=== PATIENT | male | born 1945 | race Caucasian/White ===

== ENCOUNTER 2017-07-18 13:59 | Outpatient (CLI) | payer MEDICARE ==
--- NOTE | 2017-07-18 18:38 | XRAY Report ---
THREE VIEW CERVICAL SPINE: 07/18/2017 CLINICAL INDICATION: Neck pain, chronic. COMPARISON: MR 04/25/2016, plain film 04/01/2016. AP, lateral, odontoid views of the cervical spine demonstrate degenerative changes, worst at C6-7, si milar to previous. There is no evidence of interval fracture or subluxation. The prevertebral soft tissues are unremarkable. IMPRESSION: STABLE DEGENERATIVE CHANGES. NO EVIDENCE OF INTERVAL FRACTURE. JOB #: [id number] EXT JOB #:[id number]
== END 2017-07-18 14:00 | disposition home or self-care (01) ==
LOC: DI 13:59
PROVIDERS: ATTEND Physician Assistant Medical
DX: M47.892 Other spondylosis, cervical region (principal)
CPT/HCPCS: 72040

== ENCOUNTER 2022-11-17 07:07 | Outpatient (CLI) | payer MEDICARE | END 2022-11-17 07:08 | disposition home or self-care (01) | LOC: LAB.S 07:07 | PROVIDERS: ATTEND Specialist | DX: C61 Malignant neoplasm of prostate (principal) | CPT/HCPCS: 36415; 84153 ==

== ENCOUNTER 2023-05-29 08:19 | Outpatient (CLI) | payer MEDICARE | END 2023-05-29 08:20 | disposition home or self-care (01) | LOC: LAB.S 08:19 | PROVIDERS: ATTEND Specialist | DX: Z08 Encounter for follow-up examination after completed treatment for malignant neoplasm (principal); Z85.46 Personal history of malignant neoplasm of prostate | CPT/HCPCS: 36415; 84153 ==

== ENCOUNTER 2023-11-26 15:48 | Emergency (ER) | payer MEDICARE ==
[2023-11-26 16:07] VITALS: O2SAT 100
[2023-11-26 16:18] LABS: BASOPHILS # (AUTO) 0.1 10^3/uL (0.0-0.1); BASOPHILS % (AUTO) 0.8 %; EOSINOPHILS # (AUTO) 0.2 10^3/uL (0.0-0.7); EOSINOPHILS % (AUTO) 2.3 %; HCT - HEMATOCRIT 43.7 % (42.0-52.0); HGB - HEMOGLOBIN 14.1 g/dL (14.0-18.0); LYMPHOCYTES # (AUTO) 0.9 10^3/uL (1.5-3.5); LYMPHOCYTES % (AUTO) 9.7 %; MEAN CORPUSCULAR HEMOGLOBIN 29.5 pg (27.0-31.0); MEAN CORPUSCULAR HGB CONC 32.3 g/dL (32.0-36.0); MEAN CORPUSCULAR VOLUME 91.4 fL (80.0-94.0); MEAN PLATELET VOLUME 10.5 fL (7.4-11.4); MONOCYTES # (AUTO) 0.8 10^3/uL (0.0-1.0); MONOCYTES % (AUTO) 8.7 %; NEUTROPHILS # (AUTO) 7.1 10^3/uL (1.5-6.6); NEUTROPHILS % (AUTO) 78.2 %; PLT - PLATELET COUNT 172 10^3/uL (130-450); RED BLOOD COUNT 4.78 10^6/uL (4.70-6.10); RED CELL DISTRIBUTION WIDTH 13.2 % (12.0-15.0); WHITE BLOOD COUNT 9.1 x10^3/uL (4.8-10.8)
[2023-11-26] MEDS ORDERED: DIATRIZOATE MEGLU/DIATRIZO SOD 30 ML BOTTLE PO ONE (16:22)
[2023-11-26] MEDS ORDERED: iohexoL-300 100 ML VIAL ONE (16:22)
[2023-11-26 16:38] LABS: ALBUMIN 4.4 g/dL (3.2-5.5); ALBUMIN/GLOBULIN RATIO 1.5 (1.0-2.2); BILIRUBIN,TOTAL 0.9 mg/dL (0.2-1.0); CREATININE 1.2 mg/dL (0.6-1.3); TOTAL PROTEIN 7.3 g/dL (6.4-8.9)
[2023-11-26] MEDS: MORPHINE 2 MG/ML CARPUJECT IVP STA (16:51)
[2023-11-26 17:24] LABS: BILIRUBIN,URINE NEGATIVE (NEGATIVE); GLUCOSE, URINE (UA) NEGATIVE (NEGATIVE); KETONES,URINE (UA) NEGATIVE (NEGATIVE); LEUKOCYTE ESTERASE, URINE NEGATIVE (NEGATIVE); NITRITE,URINE NEGATIVE (NEGATIVE); OCCULT BLOOD,URINE NEGATIVE (NEGATIVE); PROTEIN,URINE NEGATIVE (NEGATIVE); UROBILINOGEN,URINE 0.2 (NORMAL) E.U./dL (NORMAL)
[2023-11-26 17:30] LABS: CLARITY,URINE CLEAR (CLEAR)
[2023-11-26] MEDS: DIATRIZOATE MEGLU/DIATRIZO SOD 30 ML BOTTLE PO ONE (17:50)
[2023-11-26] MEDS: iohexoL-300 100 ML VIAL IVP ONE (17:51)
--- NOTE | 2023-11-26 18:06 | CT Report ---
PROCEDURE: Abdomen/Pelvis W INDICATIONS: diffuse abd pain CONTRAST: 100ml omni 300 TECHNIQUE: After the administration of intravenous contrast, a CT scan of the abdomen and pelvis was performed. Images were recorded and evaluated at appropriate window settings. Reformats: coronal and sagittal. F or radiation dose reduction, the following was used: automated exposure control, adjustment of mA and /or kV according to patient size. COMPARISON: None. FINDINGS: Image quality: Diagnostic. Lower chest: Unremarkable. Liver: No solid mass. Gallbladder and biliary tree: No radiopaque stones or wall thickening. No biliary dilation. Spleen: No splenomegaly. Pancreas: No pancreatic ductal dilation. Adrenals: No adrenal nodule. Kidneys and ureters: No hydronephrosis. No renal cystic lesion which requires follow up. No solid mas s. Simple appearing right renal cysts. Stomach, bowel and peritoneum: There is diffuse mild dilatation of the small bowel with air-fluid lev els. Multiple loops demonstrates fecalization of the materials. No transition point is identified. Mo derate to large burden of stool throughout the colon. Lymph nodes: No central or retroperitoneal adenopathy. Vessels: No infrarenal aortic aneurysm. Atherosclerotic vascular calcifications. PELVIS Reproductive organs: Unremarkable. Bladder: No abnormal wall thickening, accounting for underdistention. Pelvic lymph nodes: No pelvic adenopathy by size criteria. Bones: No aggressive osseous abnormality. Other: No significant ventral or inguinal hernia. IMPRESSION: Diffuse mild dilatation of the small bowel with air-fluid levels. Some loops of small bowel demonstra te fecalization of their contents suggestive of a slow transit state. Findings may represent enteriti s, ileus or partial obstruction. No transition point is identified. Reviewed by: Ortega Diego MD on 11/26/2023 6:05 PM PDT Approved by: Ortega Diego MD on 11/26/2023 6:05 PM PDT Station ID: [id number]
--- NOTE | 2023-11-26 18:20 | ED Physician Documentation ---
History of Present Illness - Stated complaint Stated Complaint: GI - Chief complaint Chief Complaint: Abd Pain - History obtained from History obtained from: Patient - History of Present Illness Timing: Today Pain level max: 3 Pain level now: 3 - Additonal information Additional information: 78-year-old male presents to the emergency department stating that he has abdominal pain today. He states that that it started yesterday but worsened today. Does not have any history of bowel obstruction or bowel surgeries. He states he has had some constipation recently. He tried an enema today but states only had small little hard balls of stool. No vomiting or nausea. No fevers. He states that the abdominal pain is cramping and diffuse. Not severe. Review of Systems Constitutional: denies: Fever, Chills Nose: denies: Rhinorrhea / runny nose, Congestion Throat: denies: Sore throat Cardiac: denies: Chest pain / pressure Respiratory: denies: Dyspnea, Cough GI: denies: Diarrhea : denies: Dysuria Skin: denies: Rash Musculoskeletal: denies: Neck pain, Back pain Neurologic: denies: Headache PD PAST MEDICAL HISTORY - Past Medical History Cardiovascular: Hypertension, Coronary artery disease, Angina, [place], Atrial fibrillation, Valve disorder Endocrine/Autoimmune: HyPOthyroidism Psych: Depression, Anxiety - Past Surgical History Past Surgical History: Yes Cardiovascular: CABG, Valve replacement HEENT: Tonsil/Adenoidectomy - Present Medications Home Medications: Ambulatory Orders Medication Instructions Recorded Confirmed Aspirin [Children's Aspirin] 81 mg ORAL DAILY 03/29/13 03/29/13 Atenolol 50 mg ORAL DAILY 03/29/13 03/29/13 Beclomethasone 40 Mcg [Qvar 40] 03/29/13 03/29/13 Bupropion HCl [Wellbutrin] 150 mg ORAL DAILY 03/29/13 03/29/13 Eszopiclone [Lunesta] 2 mg ORAL HS 03/29/13 03/29/13 Levothyroxine [Synthroid] 75 mcg ORAL DAILY 03/29/13 03/29/13 Cholesterol Medication 08/16/13 08/16/13 Losartan [Cozaar] 100 mg PO DAILY 08/16/13 08/16/13 Omeprazole Magnesium [Prilosec Otc] 20 mg PO BID #30 tablet. 08/16/13 - Allergies Allergies/Adverse Reactions: Allergies Allergy/AdvReac Type Severity Reaction Status Date / Time No Known Drug Allergies Allergy Verified 11/26/23 16:01 - Social History Does the pt smoke?: No Smoking Status: Never smoker Does the pt drink ETOH?: No Does the pt have substance abuse?: No - Immunizations Immunizations are current?: Yes - POLST Patient has POLST: No PD ED PE NORMAL - Vitals Vital signs reviewed: Yes - General General: Alert and oriented X 3, No acute distress - HEENT HEENT: PERRL, Moist mucous membranes - Neck Neck: Supple, no meningeal sign - Cardiac Cardiac: RRR, Strong equal pulses - Respiratory Respiratory: No respiratory distress, Clear bilaterally - Abdomen Abdomen: Soft, Non tender, Non distended - Back Back: No CVA TTP, No spinal TTP - Derm Derm: Warm and dry - Extremities Extremities: No edema, No calf tenderness / cord - Neuro Neuro: Alert and oriented X 3 - Psych Psych: Normal mood, Normal affect Results - Vitals Vitals: Vital Signs - 24 hr 11/26/23 11/26/23 11/26/23 15:53 18:01 18:36 Temperature 36.3 C L 36.3 C L Heart Rate 64 67 67 Respiratory 18 18 18 Rate Blood Pressure 147/78 H 150/80 H 150/80 H O2 Saturation 100 100 100 Oxygen O2 Source Room air - Labs Labs: Laboratory Tests 11/26/23 11/26/23 11/26/23 16:13 16:13 17:20 WBC 9.1 RBC 4.78 Hgb 14.1 Hct 43.7 MCV 91.4 MCH 29.5 MCHC 32.3 RDW 13.2 Plt Count 172 MPV 10.5 Neut # (Auto) 7.1 H Lymph # (Auto) 0.9 L [place] # (Auto) 0.8 Eos # (Auto) 0.2 Baso # (Auto) 0.1 Absolute Nucleated RBC 0.00 Nucleated RBC % 0.0 Sodium 137 Potassium 4.0 Chloride 98 L Carbon Dioxide 34 H Anion Gap 5.0 L BUN 24 H Creatinine 1.2 Estimated GFR (MDRD) 58 L Glucose 136 H Calcium 11.0 H Total Bilirubin 0.9 AST 19 ALT 15 Alkaline Phosphatase 103 Total Protein 7.3 Albumin 4.4 Globulin 2.9 Albumin/Globulin Ratio 1.5 Lipase 21 Urine Color YELLOW Urine Clarity CLEAR Urine pH 6.0 Ur Specific [place] 1.015 Urine Protein NEGATIVE Urine Glucose (UA) NEGATIVE Urine Ketones NEGATIVE Urine Occult Blood NEGATIVE Urine Nitrite NEGATIVE Urine Bilirubin NEGATIVE Urine Urobilinogen 0.2 (NORMAL) Ur Leukocyte Esterase NEGATIVE Ur Microscopic Review NOT INDICATED Urine Culture Comments NOT INDICATED - Rads (name of study) CT abdomen pelvis Relevant Findings:: Final report received, See rad report PD Medical Decision Making - ED course Complexity details: reviewed results, re-evaluated patient, considered differential, d/w patient ED course: Patient is a 78-year-old male who presents to the emergency department with abdominal pain. CT abdomen pelvis shows possible enteritis versus early partial bowel obstruction versus ileus. Given his symptoms and history, ileus is the most likely. He is tolerating p.o. without difficulty here. Abdominal pain resolved in the emergency department. Patient is well-appearing, nontoxic. No indication for emergent NG tube. He would like to try going home. We will have him stay on a liquid diet for the next 1 to 2 days. Encouraged ambulation. He will return if his pain increases, has vomiting, fevers or other new or worrisome symptoms. Patient counseled regarding signs and symptoms for which I believe and urgent re-evaluation would be necessary. Patient with good understanding of and agreement to plan and is comfortable going home at this time This document was made in part using voice recognition software. While efforts are made to proofread this document, sound alike and grammatical errors may occur. Departure - Departure Disposition: 01 Home, Self Care Clinical Impression: Ileus Condition: Good Instructions: Ileus Follow-Up: TANA SPENCE MD [Primary Care Provider] - Within 1 week Comments: As we discussed it appears that you have likely a possible ileus or enteritis, these are usually self limited slow transit states of the intestine. I would recommend a liquid diet for the next 2 to 3 days. You need to return to the emergency department if your pain worsens or you begin vomiting. These cases s ometimes do need to be admitted to the hospital, but you are not to that state yet. Chewing gum can also help to stimulate the gastric motility. EXAM: [id number] CT/ABPEW (07080) PROCEDURE: Abdomen/Pelvis W INDICATIONS: diffuse abd pain CONTRAST: 100ml omni 300 TECHNIQUE: After the administration of intravenous contrast, a CT scan of the abdomen and pelvis was performed. Images were recorded and evaluated at appropriate window settings. Reformats: coronal and sagittal. For radiation dose reduction, the following was used: automated exposure control, adjustment of mA and/or kV according to patient size. COMPARISON: None. FINDINGS: Image quality: Diagnostic. Lower chest: Unremarkable. Liver: No solid mass. Gallbladder and biliary tree: No radiopaque stones or wall thickening. No biliary dilation. Spleen: No splenomegaly. Pancreas: No pancreatic ductal dilation. Adrenals: No adrenal nodule. Kidneys and ureters: No hydronephrosis. No renal cystic lesion which requires follow up. No solid mass. Simple appearing right renal cysts. Stomach, bowel and peritoneum: There is diffuse mild dilatation of the small bowel with air-fluid levels. Multiple loops demonstrates fecalization of the materials. No transition point is identified. Moderate to large burden of stool throughout the colon. Lymph nodes: No central or retroperitoneal adenopathy. Vessels: No infrarenal aortic aneurysm. Atherosclerotic vascular calcifications. PELVIS Reproductive organs: Unremarkable. Bladder: No abnormal wall thickening, accounting for underdistention. Pelvic lymph nodes: No pelvic adenopathy by size criteria. Bones: No aggressive osseous abnormality. Other: No significant ventral or inguinal hernia. IMPRESSION: Diffuse mild dilatation of the small bowel with air-fluid levels. Some loops of small bowel demonstrate fecalization of their contents suggestive of a slow transit state. Findings may represent enteritis, ileus or partial obstruction. No transition point is identified. Forms: PCP List Discharge Date/Time: 11/26/23 18:42
[2023-11-26 18:43] VITALS: BP 150/80
== END 2023-11-26 18:42 | disposition home or self-care (01) ==
LOC: ED 15:48
DX: K56.7 Ileus, unspecified (principal); I10 Essential (primary) hypertension; I48.91 Unspecified atrial fibrillation; Z79.82 Long term (current) use of aspirin; Z95.5 Presence of coronary angioplasty implant and graft
CPT/HCPCS: 36415; 74177; 80053; 81003; 83690; 85025; 96374; 99283; 99284; Q9963; Q9967; 81001; 87086

== ENCOUNTER 2023-11-27 06:32 | Outpatient (CLI) | payer MEDICARE | END 2023-11-27 23:59 | disposition critical access hospital (66) | LOC: EMS 06:32 | DX: K56.609 Unspecified intestinal obstruction, unspecified as to partial versus complete obstruction (principal); R10.84 Generalized abdominal pain; R11.10 Vomiting, unspecified | CPT/HCPCS: A0425; A0429 ==

== ENCOUNTER 2023-11-27 06:35 | Inpatient (IN) | payer MEDICARE ==
[2023-11-27 07:01] LABS: BASOPHILS % (AUTO) 0.3 %; EOSINOPHILS % (AUTO) 0.1 %; HCT - HEMATOCRIT 46.2 % (42.0-52.0); HGB - HEMOGLOBIN 15.4 g/dL (14.0-18.0); LYMPHOCYTES # (AUTO) 0.5 10^3/uL (1.5-3.5); LYMPHOCYTES % (AUTO) 3.5 %; MEAN CORPUSCULAR HEMOGLOBIN 30.3 pg (27.0-31.0); MEAN CORPUSCULAR HGB CONC 33.3 g/dL (32.0-36.0); MEAN CORPUSCULAR VOLUME 90.9 fL (80.0-94.0); MEAN PLATELET VOLUME 10.6 fL (7.4-11.4); MONOCYTES # (AUTO) 0.6 10^3/uL (0.0-1.0); MONOCYTES % (AUTO) 4.8 %; NEUTROPHILS # (AUTO) 11.8 10^3/uL (1.5-6.6); NEUTROPHILS % (AUTO) 90.9 %; PLT - PLATELET COUNT 180 10^3/uL (130-450); RED BLOOD COUNT 5.08 10^6/uL (4.70-6.10); RED CELL DISTRIBUTION WIDTH 13.3 % (12.0-15.0)
--- NOTE | 2023-11-27 07:11 | ED Physician Documentation ---
PD HPI ABD PAIN - Stated complaint Stated Complaint: ABD PX/VOMITING - Chief complaint Chief Complaint: Abd Pain - History obtained from History obtained from: Patient - Additional information Additional information: This is a very nice 78-year-old gentleman who is seen in the emergency department yesterday with about 24 hours of abdominal pain. He had CT which showed partial small bowel obstruction versus ileus. He had multiple air-fluid levels but no identified transition point. My colleague Dr. Tolbert discussed conservative measures such as bowel rest at home versus admission for NG decompr ession and the patient elected to go home. He went home yesterday afternoon and had a pretty miserable evening with diffuse abdominal pain and some vomiting this morning returns to the ED because he is not better as per his discharge instructions. Last bowel movement was a few days ago. He has not had abdominal surgery before reviewed yesterday's CT scan: IMPRESSION: Diffuse mild dilatation of the small bowel with air-fluid levels. Some loops of small bowel demonstrate fecalization of their contents suggestive of a slow transit state. Findings may represent enteritis, ileus or partial obstruction. No transition point is identified. . Review of Systems Constitutional: denies: Fever, Chills Cardiac: denies: Chest pain / pressure GI: reports: Abdominal Pain, Abdominal Swelling, Nausea, Vomiting, Constipation. denies: Diarrhea : denies: Dysuria PD PAST MEDICAL HISTORY - Past Medical History Past Medical History: Yes Cardiovascular: Hypertension, Coronary artery disease, Angina, [place], Atrial fibrillation, Valve disorder Endocrine/Autoimmune: HyPOthyroidism Psych: Depression, Anxiety - Past Surgical History Past Surgical History: Yes Cardiovascular: CABG, Valve replacement HEENT: Tonsil/Adenoidectomy - Present Medications Home Medications: Ambulatory Orders Medication Instructions Recorded Confirmed Losartan [Cozaar] 50 mg PO QPM 08/16/13 11/27/23 Apixaban [Eliquis] 5 mg PO BID 11/27/23 11/27/23 Atorvastatin [Lipitor] 20 mg PO QPM 11/27/23 11/27/23 Cholecalciferol [Vitamin D3] 125 mcg PO DAILY 11/27/23 11/27/23 Doxycycline Hyclate [Vibramycin] 100 mg PO DAILY 11/27/23 11/27/23 Furosemide [Lasix] 40 mg PO DAILY 11/27/23 11/27/23 Ipratropium [place] 2 spr SANDRA BID 11/27/23 11/27/23 Levothyroxine [Synthroid] 100 mcg PO QDAC 11/27/23 11/27/23 Multivitamin [Theragran] 1 tab PO DAILY 11/27/23 11/27/23 Tamsulosin [Flomax] 0.8 mg PO QPM 11/27/23 11/27/23 atenoloL [Tenormin] 25 mg PO BID 11/27/23 11/27/23 cilostazoL [Cilostazol] 50 mg PO BID 11/27/23 11/27/23 - Allergies Allergies/Adverse Reactions: Allergies Allergy/AdvReac Type Severity Reaction Status Date / Time No Known Drug Allergies Allergy Verified 11/27/23 06:50 - Social History Does the pt smoke?: No Smoking Status: Never smoker Does the pt drink ETOH?: No Does the pt have substance abuse?: No - Immunizations Immunizations are current?: Yes - POLST Patient has POLST: No PD ED PE NORMAL - Vitals Vital signs reviewed: Yes - General General: Alert and oriented X 3, No acute distress, Well developed/nourished - HEENT HEENT: Atraumatic - Cardiac Cardiac: Other (irregular) - Abdomen Abdomen: Other (distended, hypactive BS, mild diffuse tender, no peritonitis) - Rectal Rectal: Deferred - Back Back: No CVA TTP - Extremities Extremities: No edema, No calf tenderness / cord - Neuro Neuro: Alert and oriented X 3 - Psych Psych: Normal mood Results - Vitals Vitals: Vital Signs - 24 hr 11/27/23 11/27/23 06:35 06:53 Temperature 36.0 C L Heart Rate 77 79 Respiratory 24 18 Rate Blood Pressure 160/84 H O2 Saturation 99 99 Oxygen O2 Source Room air - EKG (time done) 0748 EKG releavant findings:: EKG personally interpreted by author of this note. Relevant findings are: Rate: Rate (enter#) (79) Rhythm: Other (Sinus rhythm with occasional supraventricular ectopic beats) [place]: Normal Intervals: LBBB Ischemia: Non specific changes - Labs Labs: Laboratory Tests 11/27/23 11/27/23 06:49 06:49 WBC 13.0 H RBC 5.08 Hgb 15.4 Hct 46.2 MCV 90.9 MCH 30.3 MCHC 33.3 RDW 13.3 Plt Count 180 MPV 10.6 Neut # (Auto) 11.8 H Lymph # (Auto) 0.5 L [place] # (Auto) 0.6 Eos # (Auto) 0.0 Baso # (Auto) 0.0 Absolute Nucleated RBC 0.00 Nucleated RBC % 0.0 Sodium 134 L Potassium 4.5 Chloride 93 L Carbon Dioxide 33 H Anion Gap 8.0 BUN 28 H Creatinine 1.4 H Estimated GFR (MDRD) 49 L Glucose 191 H Calcium 11.3 H Total Bilirubin 1.0 AST 26 ALT 16 Alkaline Phosphatase 109 Total Protein 7.7 Albumin 4.6 Globulin 3.1 Albumin/Globulin Ratio 1.5 Lipase 34 - Rads (name of study) KUB Relevant Findings:: EMP independent interpretation of test (NG needs advancement, AF levels) PD Medical Decision Making - ED course Complexity details: reviewed old records, reviewed results, re-evaluated patient, considered differential, d/w patient, d/w provider relations consultant ED course: Patient returns with no relief of symptoms after conservative measures for ileus at home. No peritoneal signs and not ill-appearing. Vital signs are stable and he has mild diffuse tenderness without any localizing signs. Will benefit from bowel rest. Discussed with general surgery Dr. Escobar, she recommended placing NG tube, check KUB for NG tube placement and begin IV fluids. Recommend admitting to the hospitalist team. Dr. Kim from hospital medicine was contacted and is in agreement and will admit for bowel rest and IV fluids for partial small bowel obstruction. Reviewing labs he now has a leukocytosis of 13,000. Has mild bump in Cr 1.2 to 1.4, no acidosis, mild hyperglycemia. Will trend these on the inpatient side. NG placed with immediate return of >500cc. KUB shows AF levels and NG tube in distal esophagus. advanced 5 cm per RN. Continue NPO, IVF, bowel rest. Impression: Small bowel obstruction Plan: Admit medicine, surgical consult - Consults Consults: Consulted (name) (Surgery (Luz) and medicine (Carol)), Discussed case with (General surgery Dr. Escobar, Hospitalist Dr. Medina) Departure - Departure Disposition: 66 [facility] DC/Xfer Clinical Impression: Small bowel obstruction Condition: Good Discharge Date/Time: 11/27/23 09:46
[2023-11-27 07:16] LABS: ALBUMIN 4.6 g/dL (3.2-5.5); ALBUMIN/GLOBULIN RATIO 1.5 (1.0-2.2); CALCIUM 11.3 mg/dL (8.5-10.3); CREATININE 1.4 mg/dL (0.6-1.3); POTASSIUM 4.5 mmol/L (3.5-4.5); TOTAL PROTEIN 7.7 g/dL (6.4-8.9)
[2023-11-27] MEDS: SODIUM CHLORIDE 0.9% 1,000 ML IV STA (07:38)
--- NOTE | 2023-11-27 08:27 | XRAY Report ---
PROCEDURE: No-Charge 1V Abdomen INDICATIONS: post NG tube insertion TECHNIQUE: 1 view of the abdomen were acquired. COMPARISON: CT abdomen pelvis 11/26/2023. FINDINGS: Surgical changes and devices: Nasogastric tube with tip projecting over the expected location of sto mach and side-port in the distal esophagus.. Median sternotomy wires and valvuloplasty. Bowel: No pneumoperitoneum. Diffuse mildly dilated loops of small bowel.. Moderate to large stool bu rden. Soft tissues: No masses; visualized solid organ contours appear normal in size. No suspicious abdom inal calcifications. Contrast is seen filling the bladder. Bones: No suspicious bony abnormalities. IMPRESSION: 1.NG tube with side-port in the distal esophagus, recommend advancement. 2.Diffuse mildly dilated loops of small bowel. Differential includes ileus or obstruction. 3.Moderate to large burden of stool throughout the colon, correlate for constipation. Reviewed by: Ortega Diego MD on 11/27/2023 8:26 AM PDT Approved by: Ortega Diego MD on 11/27/2023 8:26 AM PDT Station ID: [id number]
--- NOTE | 2023-11-27 09:03 | HISTORY & PHYSICAL EXAMINATION ---
Chief Complaint - Chief Complaint Chief Complaint: Abdominal pain History of Present Illness - Admitted From Admitted From:: Emergency Room - History Obtained From Records Reviewed: Yes History obtained from: Patient and Emergency Room Physician Dr. Ayoub - History of Present Illness HPI Comment/Other: David Le is a 78-year-old man who presented to the emergency room with complaints of abdominal pain and vomiting. He presented to the emergency room on November 25, [address] scan of the abdomen and pelvis which revealed a partial small bowel obstruction versus ileus. Decision was made for the patient to be discharged home with conservative measures. During the night patient complained of increased pain and vomiting and presented to the emergency room this morning. Patient reports she has had abdominal pain for approximately 3 days. He denies any fever and chills. He reports no vomiting until this morning. He denies chest pain, shortness of breath, fever and chills In the emergency room, a nasogastric tube has been placed for decompression and patient reports resolution of his abdominal pain after placement of nasogastric tube. History - Past Medical History Cardiovascular: reports: Hypertension, Coronary artery disease, Angina, [place], Atrial fibrillation, Valve disorder Endocrine/Autoimmune: reports: HyPOthyroidism Psych: reports: Depression, Anxiety - Past Surgical History Cardiovascular: reports: CABG, Valve replacement HEENT: reports: Tonsil/Adenoidectomy - POLST Patient has POLST: No Meds/Allgy - Home Medications Home Medications: Ambulatory Orders Medication Instructions Recorded Confirmed Aspirin [Children's Aspirin] 81 mg ORAL DAILY 03/29/13 03/29/13 Atenolol 50 mg ORAL DAILY 03/29/13 11/27/23 Beclomethasone 40 Mcg [Qvar 40] 2 puffs IH Q4HR PRN 03/29/13 11/27/23 Bupropion HCl [Wellbutrin] 150 mg ORAL DAILY 03/29/13 11/27/23 Eszopiclone [Lunesta] 2 mg ORAL HS 03/29/13 11/27/23 Levothyroxine [Synthroid] 75 mcg ORAL DAILY 03/29/13 11/27/23 Cholesterol Medication 08/16/13 08/16/13 Losartan [Cozaar] 100 mg PO DAILY 08/16/13 11/27/23 Omeprazole Magnesium [Prilosec Otc] 20 mg PO BID #30 tablet. 08/16/13 11/27/23 - Allergies Allergies/Adverse Reactions: Allergies Allergy/AdvReac Type Severity Reaction Status Date / Time No Known Drug Allergies Allergy Verified 11/27/23 06:50 Review of Systems - Gastrointestinal Gastrointestinal: reports: Abdominal pain, Nausea, Vomiting Exam - Vital Signs Vital Signs: Vital Signs x48h Temp Pulse Resp BP Pulse Ox 11/27/23 06:53 79 18 99 11/27/23 06:35 36.0 C L 77 24 160/84 H 99 - Physical Exam General Appearance: positive: No acute distress, Alert Eyes Bilateral: positive: Conjunctivae nml, No scleral icterus Neck: positive: No JVD, Trachea midline Respiratory: positive: Other (Good air exchange in all lung chappell no wheezing no crackles.) Cardiovascular: positive: Other (Positive S1-S2 grade 3/6 systolic ejection murmur at left lower sternal border) Extremities: positive: Nml appearance, No pedal edema Neurologic/Psychiatric: positive: Oriented x3, Motor nml Conclusion/Plan - Problem List (1) Small bowel obstruction Conclusion/Plan: Patient admitted for small bowel expression versus ileus. Patient is n.p.o. Fluid hydration with lactated Ringer's at 100 mL an hour. A nasogastric tube has been placed for decompression. There is no indication for immediate surgery at this time. . - Lab Results Fish Bones: 11/27/23 06:49 11/27/23 06:49
[2023-11-27] MEDS: HYDROmorphone 0.5 MG/0.5 ML SYRINGE IVP STA (10:22)
--- NOTE | 2023-11-27 11:36 | PHARMACY PROGRESS NOTE ---
- Best Possible Medication History Admit Date and Time: 11/27/23 0853 Processed by: Pharmacy Medications reviewed in ED?: Yes (Corrected doses and removing incorrectly confirmed meds) Medication History completed: Yes Patient Interview: Completed Secondary Source(s): Prescription bottles, Pharmacy records, Insurance records As the person ultimately responsible for medication therapy, providers are able to order a medication from an existing home medication list in [facility] via the "Reconcile Routine" prior to Confirmation of that medication by network diagnostic support specialist. Such practice is discouraged except when the physician, in their clinical judgment, deems that a medical need exists for a medication without regard to previous use.
[2023-11-27] MEDS: PHENOL THROAT SPRAY 177 ML MM PRN (12:57)
[2023-11-27 14:40] LABS: BILIRUBIN,URINE NEGATIVE (NEGATIVE); GLUCOSE, URINE (UA) NEGATIVE (NEGATIVE); KETONES,URINE (UA) TRACE mg/dL (NEGATIVE); LEUKOCYTE ESTERASE, URINE NEGATIVE (NEGATIVE); NITRITE,URINE NEGATIVE (NEGATIVE); OCCULT BLOOD,URINE NEGATIVE (NEGATIVE); PH,URINE 5.5 PH (5.0-7.5); PROTEIN,URINE TRACE mg/dL (NEGATIVE); UROBILINOGEN,URINE 0.2 (NORMAL) E.U./dL (NORMAL)
[2023-11-27 14:47] LABS: CLARITY,URINE CLEAR (CLEAR)
[2023-11-27] MEDS: ACETAMINOPHEN 325 MG TABLET PO PRN (14:50)
[2023-11-27] MEDS: SODIUM CHLORIDE FLUSH 0.9% 10 ML SYRINGE IVP SCH (19:30)
[2023-11-27] MEDS: LACTATED RINGERS 1,000 ML IV SCH (20:32)
[2023-11-28 05:58] LABS: BASOPHILS # (AUTO) 0.1 10^3/uL (0.0-0.1); BASOPHILS % (AUTO) 0.5 %; EOSINOPHILS # (AUTO) 0.1 10^3/uL (0.0-0.7); EOSINOPHILS % (AUTO) 0.9 %; HCT - HEMATOCRIT 43.3 % (42.0-52.0); HGB - HEMOGLOBIN 14.1 g/dL (14.0-18.0); LYMPHOCYTES # (AUTO) 0.8 10^3/uL (1.5-3.5); LYMPHOCYTES % (AUTO) 8.3 %; MEAN CORPUSCULAR HEMOGLOBIN 30.2 pg (27.0-31.0); MEAN CORPUSCULAR HGB CONC 32.6 g/dL (32.0-36.0); MEAN CORPUSCULAR VOLUME 92.7 fL (80.0-94.0); MONOCYTES # (AUTO) 0.8 10^3/uL (0.0-1.0); MONOCYTES % (AUTO) 7.9 %; NEUTROPHILS # (AUTO) 8.1 10^3/uL (1.5-6.6); PLT - PLATELET COUNT 165 10^3/uL (130-450); RED BLOOD COUNT 4.67 10^6/uL (4.70-6.10); RED CELL DISTRIBUTION WIDTH 13.7 % (12.0-15.0); WHITE BLOOD COUNT 9.9 x10^3/uL (4.8-10.8)
[2023-11-28 06:20] LABS: CALCIUM 9.9 mg/dL (8.5-10.3); MAGNESIUM 2.1 mg/dL (1.7-2.3); PHOSPHORUS 2.7 mg/dL (2.5-5.0); POTASSIUM 3.8 mmol/L (3.5-4.5)
[2023-11-28] MEDS ORDERED: LEVOTHYROXINE 100 MCG TABLET ONE (07:25)
[2023-11-28] MEDS: ENOXAPARIN 40 MG/0.4 ML SYRINGE SUBQ SCH (08:17)
[2023-11-28] MEDS: atenoloL 25 MG TABLET PO SCH (08:18)
[2023-11-28] MEDS: LEVOTHYROXINE 100 MCG TABLET PO ONE (08:19)
--- NOTE | 2023-11-28 10:45 | CONSULTATION NOTE ---
Referring Provider Consult Date: 11/28/23 Chief Complaint - Chief Complaint Chief Complaint: SBO History of Present Illness - Admitted From Admitted From:: ED - History Obtained From History obtained from: patient - History of Present Illness HPI Comment/Other: 78yoM with no surgical history presented to ED on with abdominal pain and constipation. CT was obtained demonstrating mildly dilated loops of small bowel with air fluid levels as well as areas of fecalization, but no transition point. Decision was made to dispo patient home as it was felt he may have had enteritis vs ileus, however he represented 12hrs later with continued abdominal pain and was admitted for SBP vs pSBO. An NGT was placed, which has had 2L of dark thick contents out over the last 24hrs. This AM he has improved abdominal pain and just passed a small amount of flatus. History - Past Medical History Cardiovascular: reports: Hypertension, Coronary artery disease, Angina, [place], Atrial fibrillation, Valve disorder Respiratory: reports: None Endocrine/Autoimmune: reports: HyPOthyroidism : reports: Other Psych: reports: Depression, Anxiety Musculoskeletal: reports: None - Past Surgical History Cardiovascular: reports: CABG, Valve replacement HEENT: reports: Tonsil/Adenoidectomy - POLST Patient has POLST: No Meds/Allgy - Home Medications Home Medications: Ambulatory Orders Medication Instructions Recorded Confirmed Losartan [Cozaar] 50 mg PO QPM 08/16/13 11/27/23 Apixaban [Eliquis] 5 mg PO BID 11/27/23 11/27/23 Atorvastatin [Lipitor] 20 mg PO QPM 11/27/23 11/27/23 Cholecalciferol [Vitamin D3] 125 mcg PO DAILY 11/27/23 11/27/23 Doxycycline Hyclate [Vibramycin] 100 mg PO DAILY 11/27/23 11/27/23 Furosemide [Lasix] 40 mg PO DAILY 11/27/23 11/27/23 Ipratropium [place] 2 spr SANDRA BID 11/27/23 11/27/23 Levothyroxine [Synthroid] 100 mcg PO QDAC 11/27/23 11/27/23 Multivitamin [Theragran] 1 tab PO DAILY 11/27/23 11/27/23 Tamsulosin [Flomax] 0.8 mg PO QPM 11/27/23 11/27/23 atenoloL [Tenormin] 25 mg PO BID 11/27/23 11/27/23 cilostazoL [Cilostazol] 50 mg PO BID 11/27/23 11/27/23 - Allergies Allergies/Adverse Reactions: Allergies Allergy/AdvReac Type Severity Reaction Status Date / Time No Known Drug Allergies Allergy Verified 11/27/23 06:50 Exam - Vital Signs Reviewed Vital Signs: Yes Vital Signs: Vital Signs x48h Temp Pulse Resp BP Pulse Ox 11/28/23 08:00 37.1 C 73 16 145/78 H 99 - Physical Exam General Appearance: positive: No acute distress, Alert Eyes Bilateral: positive: Normal inspection, PERRL ENT: positive: ENT inspection nml, Pharynx nml, No signs of dehydration Neck: positive: Nml inspection, Thyroid nml, No JVD, Trachea midline Respiratory: positive: Chest non-tender, No respiratory distress, Breath sounds nml Cardiovascular: positive: Regular rate & rhythm, No murmur, No gallop Peripheral Pulses: positive: 2+ Abdomen: positive: Non-tender, No distention Skin: positive: Color nml, No rash, Warm, Dry Extremities: positive: Non-tender, Full ROM, Nml appearance Conclusion and Plan - Lab Results Laboratory Results 11/28/23 04:21: WBC 9.9, RBC 4.67 L, Hgb 14.1, Hct 43.3, MCV 92.7, MCH 30.2, MCHC 32.6, RDW 13.7, Plt Count 165, MPV 11.0, Neut # (Auto) 8.1 H, Lymph # (Auto) 0.8 L, [place] # (Auto) 0.8, Eos # (Auto) 0.1, Baso # (Auto) 0.1, Absolute Nucleated RBC 0.00, Nucleated RBC % 0.0 11/28/23 04:21: Sodium 137, Potassium 3.8, Chloride 98 L, Carbon Dioxide 32, An ion Gap 7.0, BUN 25 H, Creatinine 1.0, Estimated GFR (MDRD) 72 L, Glucose 138 H, Calcium 9.9, Phosphorus 2.7, Magnesium 2.1 11/27/23 13:24: Urine Color YELLOW, Urine Clarity CLEAR, Urine pH 5.5, Ur Specific [place] 1.015, Urine Protein TRACE, Urine Glucose (UA) NEGATIVE, Urine Ketones TRACE, Urine Occult Blood NEGATIVE, Urine Nitrite NEGATIVE, Urine Bilirubin NEGATIVE, Urine Urobilinogen 0.2 (NORMAL), Ur Leukocyte Esterase NEGATIVE, Ur Microscopic Review NOT INDICATED 11/27/23 06:49: Sodium 134 L, Potassium 4.5, Chloride 93 L, Carbon Dioxide 33 H, Anion Gap 8.0, BUN 28 H, Creatinine 1.4 H, Estimated GFR (MDRD) 49 L, Glucose 191 H, Calcium 11.3 H, Total Bilirubin 1.0, AST 26, ALT 16, Alkaline Phosphatase 109, Total Protein 7.7, Albumin 4.6, Globulin 3.1, Albumin/Globulin Ratio 1.5, Lipase 34 11/27/23 06:49: WBC 13.0 H, RBC 5.08, Hgb 15.4, Hct 46.2, MCV 90.9, MCH 30.3, MCHC 33.3, RDW 13.3, Plt Count 180, MPV 10.6, Neut # (Auto) 11.8 H, Lymph # (Auto) 0.5 L, [place] # (Auto) 0.6, Eos # (Auto) 0.0, Baso # (Auto) 0.0, Absolute Nucleated RBC 0.00, Nucleated RBC % 0.0 - Diagnostic Imaging Results Diagnostic Imaging Results: positive: Final report reviewed, Read independently (CT abdomen/pelvis with IV/oral contrast (31Mar) - mildly dilated fluid filled small bowel with areas of fecalization AXR 1Apr - NGT with tip below diaphragm but side port in esophagus, persistent dilated SB) - Diagnosis Diagnosis: Small bowel obstruction, possible partial - Consultation Note Consultation Note: 78yoM with no past abdominal surgical history with (+-partial) small bowel obstruction. Fecalization on the CT suggests a degree of chronic slow transit vs chronic partial obstruction. HD normal, WBC normal today (13 yesterday), creatinine/lytes WNL. Minimal abdominal pain and passage of flatus suggests that NGT decompression thus far has been beneficial. Will investigate further with gastrograffin protocol. - KUB now to confirm that NGT has been advanced into the stomach from prior XR - 120cc gastrograffin via NGT, then clamp tube x3 hrs and then return to LIWS - KUB at 4hrs after administration of gastrograffin - subsequent KUB timing will depend on clinical status and appearance of 4hr KUB - OK for anticoagulation Sheryl Escobar DO FACS General Surgeon
[2023-11-28] MEDS ORDERED: PANTOPRAZOLE 40 MG TABLET PO SCH (11:00)
--- NOTE | 2023-11-28 11:40 | XRAY Report ---
PROCEDURE: No-Charge 1V Abdomen INDICATIONS: NGT POSITION PRIOR TO GASTROGRAFFIN ADMINSTRATION TECHNIQUE: 1 view of the abdomen were acquired. COMPARISON: X-ray 11/27/2023, CT 11/26/2023. FINDINGS: Surgical changes and devices: Gastric tube tip and side-port project of the stomach. Bowel: No pneumoperitoneum. Distended small bowel. Soft tissues: No masses; visualized solid organ contours appear normal in size. No suspicious abdom inal calcifications. Bones: No suspicious bony abnormalities. IMPRESSION: Gastric tube tip and side-port project over the stomach. Similar distended loops of small bowel. Reviewed by: Thomas Montano MD on 11/28/2023 11:39 AM PDT Approved by: Thomas Montano MD on 11/28/2023 11:39 AM PDT Station ID: [id number]
[2023-11-28] MEDS: DIATRIZOATE MEGLU/DIATRIZO SOD 30 ML BOTTLE PO ONE (11:43)
[2023-11-28] MEDS: DIATR MEGLU/DIATRIZOATE SODIUM 120 ML BOTTLE PO ONE (12:41)
[2023-11-28] MEDS: ONDANSETRON 4 MG/2 ML VIAL IVP PRN (12:56)
--- NOTE | 2023-11-28 14:03 | PROVIDER PROGRESS NOTE ---
Assessment/Plan - Problem List (1) Atrial fibrillation Assessment/Plan: --Continue home atenolol. Per general surgery, he is okay for anticoagulation. Will resume his Eliquis in the morning. (2) Small bowel obstruction Assessment/Plan: --NGT in place. Case was discussed with general surgery. Plan to do a gastrograffin challenge today. (4) CAD (coronary artery disease) Assessment/Plan: --Continue atenolol and atorvastatin. (5) H/O aortic valve replacement Assessment/Plan: --Bioprosthetic aortic valve replacement. He can return to daily aspirin. - Current Meds Current Meds: Current Medications Generic Name Dose Route Start Last Admin Trade Name Freq PRN Reason Stop Dose Admin Acetaminophen 650 mg 11/27/23 13:32 11/27/23 20:02 Acetaminophen 325 Mg Tablet PO 650 mg Q4HR PRN Administration Pain or Fever > 38C (100.4F) Atenolol 25 mg 11/28/23 09:00 11/28/23 08:18 Atenolol 25 Mg Tablet PO 25 mg BID MARKY Administration Enoxaparin Sodium 40 mg 11/28/23 09:00 11/28/23 08:17 Enoxaparin 40 Mg/0.4 Ml Syringe SUBQ 40 mg DAILY MARKY Administration Lactated Ringer's 1,000 mls @ 100 mls/hr 11/27/23 21:00 11/28/23 08:41 Lr IV 100 mls/hr .Q10H MARKY Administration Ondansetron HCl 4 mg 11/28/23 12:43 11/28/23 12:56 Ondansetron 4 Mg/2 Ml Vial IVP 4 mg Q4HR PRN Administration Nausea / Vomiting Phenol/Menthol 2 sprays 11/27/23 12:18 11/27/23 12:57 Phenol Throat [place] 177 Ml MM 2 sprays Q2HR PRN Administration Throat Pain Sodium Chloride 10 ml 11/27/23 17:00 11/28/23 08:19 Sodium Chloride Flush 0.9% 10 Ml Syringe IVP 10 ml 0100,0900,1700 MARKY Administration - Lab Result Fish Bone Diagrams: 11/28/23 04:21 11/28/23 04:21 - Additional Planning My Orders: My Active Orders 11/28/23 07:17 HYDROmorphone 0.5MG SYRINGE [Dilaudid 0.5MG Syringe] 0.5 mg IVP Q2H PRN 11/28/23 09:00 atenoloL [Tenormin] 25 mg PO BID 11/28/23 12:43 Ondansetron Inj [Zofran Inj] 4 mg IVP Q4HR PRN Ondansetron Odt [Zofran Odt] 4 mg TL Q4HR PRN 11/28/23 17:00 Pantoprazole [Protonix] 40 mg PO QDAC 11/29/23 07:00 Levothyroxine [Synthroid] 100 mcg PO QDAC Subjective - Subjective Patient Reports: Feeling Better, Resting Comfortably, No Complaints Objective Vital Signs: Vital Signs - 24 hr 11/27/23 11/27/23 11/28/23 15:38 22:18 08:00 Temperature 37.5 C 37.2 C 37.1 C Heart Rate [ 82 74 73 Brachial] Respiratory 16 18 16 Rate Blood Pressure 139/78 H 148/76 H 145/78 H [Left Brachial artery] O2 Saturation 98 97 99 Oxygen O2 Source Room air I&O (Last 24 Hrs): Intake and Output Totals x24h 11/26/23 11/27/23 11/28/23 23:59 23:59 23:59 Intake Total 2455 1250 Output Total 2240 1125 Balance 215 125 General: Alert, Oriented x3, Cooperative, No acute distress Neuro: Alert Cardiovascular: Regular rate, Normal S1, Normal S2 Respiratory: Chest non-tender, No respiratory distress, Breath sounds nml Abdomen: Other (Distended) Extremities: No edema - Results Results: Laboratory Results WBC 9.9 x10^3/uL (4.8-10.8) 11/28/23 04:21 RBC 4.67 10^6/uL (4.70-6.10) L 11/28/23 04:21 Hgb 14.1 g/dL (14.0-18.0) 11/28/23 04:21 Hct 43.3 % (42.0-52.0) 11/28/23 04:21 MCV 92.7 fL (80.0-94.0) 11/28/23 04:21 MCH 30.2 pg (27.0-31.0) 11/28/23 04:21 MCHC 32.6 g/dL (32.0-36.0) 11/28/23 04:21 RDW 13.7 % (12.0-15.0) 11/28/23 04:21 Plt Count 165 10^3/uL (130-450) 11/28/23 04:21 MPV 11.0 fL (7.4-11.4) 11/28/23 04:21 Neut # (Auto) 8.1 10^3/uL (1.5-6.6) H 11/28/23 04:21 Lymph # (Auto) 0.8 10^3/uL (1.5-3.5) L 11/28/23 04:21 [place] # (Auto) 0.8 10^3/uL (0.0-1.0) 11/28/23 04:21 Eos # (Auto) 0.1 10^3/uL (0.0-0.7) 11/28/23 04:21 Baso # (Auto) 0.1 10^3/uL (0.0-0.1) 11/28/23 04:21 Absolute Nucleated RBC 0.00 x10^3/uL 11/28/23 04:21 Nucleated RBC % 0.0 /100WBC 11/28/23 04:21 Sodium 137 mmol/L (135-145) 11/28/23 04:21 Potassium 3.8 mmol/L (3.5-4.5) 11/28/23 04:21 Chloride 98 mmol/L (101-111) L 11/28/23 04:21 Carbon Dioxide 32 mmol/L (21-32) 11/28/23 04:21 Anion Gap 7.0 (6-13) 11/28/23 04:21 BUN 25 mg/dL (6-20) H 11/28/23 04:21 Creatinine 1.0 mg/dL (0.6-1.3) 11/28/23 04:21 Estimated GFR (MDRD) 72 (>89) L 11/28/23 04:21 Glucose 138 mg/dL (74-104) H 11/28/23 04:21 Calcium 9.9 mg/dL (8.5-10.3) 11/28/23 04:21 Phosphorus 2.7 mg/dL (2.5-5.0) 11/28/23 04:21 Magnesium 2.1 mg/dL (1.7-2.3) 11/28/23 04:21 Total Bilirubin 1.0 mg/dL (0.2-1.0) 11/27/23 06:49 AST 26 IU/L (10-42) 11/27/23 06:49 ALT 16 IU/L (10-60) 11/27/23 06:49 Alkaline Phosphatase 109 IU/L (42-121) 11/27/23 06:49 Total Protein 7.7 g/dL (6.4-8.9) 11/27/23 06:49 Albumin 4.6 g/dL (3.2-5.5) 11/27/23 06:49 Globulin 3.1 g/dL (2.1-4.2) 11/27/23 06:49 Albumin/Globulin Ratio 1.5 (1.0-2.2) 11/27/23 06:49 Lipase 34 U/L (11-82) 11/27/23 06:49 Urine Color YELLOW 11/27/23 13:24 Urine Clarity CLEAR (CLEAR) 11/27/23 13:24 Urine pH 5.5 PH (5.0-7.5) 11/27/23 13:24 Ur Specific [place] 1.015 (1.002-1.030) 11/27/23 13:24 Urine Protein TRACE mg/dL (NEGATIVE) 11/27/23 13:24 Urine Glucose (UA) NEGATIVE mg/dL (NEGATIVE) 11/27/23 13:24 Urine Ketones TRACE mg/dL (NEGATIVE) 11/27/23 13:24 Urine Occult Blood NEGATIVE (NEGATIVE) 11/27/23 13:24 Urine Nitrite NEGATIVE (NEGATIVE) 11/27/23 13:24 Urine Bilirubin NEGATIVE (NEGATIVE) 11/27/23 13:24 Urine Urobilinogen 0.2 (NORMAL) E.U./dL (NORMAL) 11/27/23 13:24 Ur Leukocyte Esterase NEGATIVE (NEGATIVE) 11/27/23 13:24 Ur Microscopic Review NOT INDICATED 11/27/23 13:24
[2023-11-28] MEDS: PROCHLORPERAZINE 10 MG/2 ML VIAL IVP ONE (15:09)
--- NOTE | 2023-11-28 16:47 | XRAY Report ---
PROCEDURE: SBFT Challenge Panel INDICATIONS: GASTROGRAFFIN CHALLENGE COMPARISON: 11/26/2023 FINDINGS AND IMPRESSION: Possible small hiatal hernia. Enteric contrast is seen accumulating in the distal esophagus and gastr ic fundus. Moderately dilated loops of small and large bowel seen throughout the abdomen. At the 2 and 4 hour images, oral contrast is seen accumulating in the distal small bowel. Findings re main indeterminate for ileus versus partial obstruction. Oral contrast persists in the gastric fundus . Excreted contrast is also seen in the bladder. Sternotomy wires. Enteric tube in place. Lower lung mild opacities are present. Reviewed by: Abhijeet Ybarra MD on 11/28/2023 4:46 PM PDT Approved by: Abhijeet Ybarra MD on 11/28/2023 4:46 PM PDT Station ID: [id number]
[2023-11-28] MEDS: HYDROmorphone 0.5 MG/0.5 ML SYRINGE IVP PRN (19:11)
[2023-11-28] MEDS: PANTOPRAZOLE 40 MG TABLET PO SCH (20:46)
[2023-11-28] MEDS: APIXABAN 5 MG TABLET PO SCH (20:47)
[2023-11-28] MEDS: ATORVASTATIN 10 MG TABLET PO SCH (20:47)
[2023-11-29 04:44] LABS: BASOPHILS % (AUTO) 0.7 %; EOSINOPHILS # (AUTO) 0.1 10^3/uL (0.0-0.7); HCT - HEMATOCRIT 42.2 % (42.0-52.0); HGB - HEMOGLOBIN 13.6 g/dL (14.0-18.0); LYMPHOCYTES # (AUTO) 0.7 10^3/uL (1.5-3.5); LYMPHOCYTES % (AUTO) 12.1 %; MEAN CORPUSCULAR HEMOGLOBIN 30.1 pg (27.0-31.0); MEAN CORPUSCULAR HGB CONC 32.2 g/dL (32.0-36.0); MEAN CORPUSCULAR VOLUME 93.4 fL (80.0-94.0); MONOCYTES # (AUTO) 0.8 10^3/uL (0.0-1.0); NEUTROPHILS # (AUTO) 4.2 10^3/uL (1.5-6.6); NEUTROPHILS % (AUTO) 70.9 %; PLT - PLATELET COUNT 163 10^3/uL (130-450); RED BLOOD COUNT 4.52 10^6/uL (4.70-6.10); RED CELL DISTRIBUTION WIDTH 13.4 % (12.0-15.0); WHITE BLOOD COUNT 5.9 x10^3/uL (4.8-10.8)
[2023-11-29 05:38] LABS: CALCIUM 9.7 mg/dL (8.5-10.3); CREATININE 1.1 mg/dL (0.6-1.3); POTASSIUM 3.7 mmol/L (3.5-4.5)
[2023-11-29] MEDS: LEVOTHYROXINE 100 MCG TABLET PO SCH (06:21)
--- NOTE | 2023-11-29 09:18 | PROVIDER PROGRESS NOTE ---
Subjective - General Admit Date: 11/27/23 - Review of Systems Drain Type: NGT Drain Output Description: gastric Approximate mls Output: 1250 General: positive: No symptoms Pulmonary: positive: No symptoms Cardiovascular: positive: No symptoms Gastrointestinal: positive: Abdominal pain (mild). negative: Flatus Skin: positive: No symptoms Psychiatric: positive: No symptoms - Other Other Information/Narrative: 24hrs: Gastrograffin given yesterday. HD normal, afebrile. NO flatus since small amount yesterday morning. Mild abdominal pain. Objective - Patient Data Reviewed Vital Signs: Yes Vital Signs: Vital Signs x48h Temp Pulse Resp BP Pulse Ox 11/29/23 07:33 37.0 C 73 18 145/78 H 92 Weight: Weight 11/27/23 11/28/23 11/29/23 23:59 23:59 23:59 Weight (kg) 68 kg Intake & Output: Intake and Output Totals x24h 11/27/23 11/28/23 11/29/23 23:59 23:59 23:59 Intake Total 2455 2966.667 1043.333 Output Total 2240 1525 700 Balance 215 1441.667 343.333 - Lab Results Lab Results: 11/29/23 04:18 11/29/23 04:18 Other Lab Results: Lab Results x24hrs 11/29/23 11/29/23 Range/Units 04:18 04:18 WBC 5.9 (4.8-10.8) x10^3/uL RBC 4.52 L (4.70-6.10) 10^6/uL Hgb 13.6 L (14.0-18.0) g/dL Hct 42.2 (42.0-52.0) % MCV 93.4 (80.0-94.0) fL MCH 30.1 (27.0-31.0) pg MCHC 32.2 (32.0-36.0) g/dL RDW 13.4 (12.0-15.0) % Plt Count 163 (130-450) 10^3/uL MPV 11.0 (7.4-11.4) fL Neut # (Auto) 4.2 (1.5-6.6) 10^3/uL Lymph # (Auto) 0.7 L (1.5-3.5) 10^3/uL [place] # (Auto) 0.8 (0.0-1.0) 10^3/uL Eos # (Auto) 0.1 (0.0-0.7) 10^3/uL Baso # (Auto) 0.0 (0.0-0.1) 10^3/uL Absolute Nucleated RBC 0.00 x10^3/uL Nucleated RBC % 0.0 /100WBC Sodium 140 (135-145) mmol/L Potassium 3.7 (3.5-4.5) mmol/L Chloride 100 L (101-111) mmol/L Carbon Dioxide 33 H (21-32) mmol/L Anion Gap 7.0 (6-13) BUN 24 H (6-20) mg/dL Creatinine 1.1 (0.6-1.3) mg/dL Estimated GFR (MDRD) 65 L (>89) Glucose 131 H (74-104) mg/dL Calcium 9.7 (8.5-10.3) mg/dL - Imaging Results Radiology Imaging: positive: EMP read indepedently (KUB this morning with gastrograffin into distal SB vs proximal right colon.) - Current Medications Current Medications: Current Medications Generic Name Dose Route Start Last Admin Trade Name Freq PRN Reason Stop Dose Admin Acetaminophen 650 mg 11/27/23 13:32 11/28/23 20:46 Acetaminophen 325 Mg Tablet PO 650 mg Q4HR PRN Administration Pain or Fever > 38C (100.4F) Apixaban 5 mg 11/28/23 21:00 11/29/23 08:55 Apixaban 5 Mg Tablet PO 5 mg BID MARKY Administration Atenolol 25 mg 11/28/23 09:00 11/29/23 08:55 Atenolol 25 Mg Tablet PO 25 mg BID MARKY Administration Atorvastatin Calcium 20 mg 11/28/23 21:00 11/28/23 20:47 Atorvastatin 10 Mg Tablet PO 20 mg QPM MARKY Administration Hydromorphone HCl 0.5 mg 11/28/23 07:17 11/29/23 04:45 Hydromorphone 0.5 Mg/0.5 Ml Syringe IVP 0.5 mg Q2H PRN Administration Severe Pain (Level 7-10) Lactated Ringer's 1,000 mls @ 100 mls/hr 11/27/23 21:00 11/29/23 04:45 Lr IV 100 mls/hr .Q10H MARKY Administration Levothyroxine Sodium 100 mcg 11/29/23 07:00 11/29/23 06:21 Levothyroxine 100 Mcg Tablet PO Not Given QDAC MARKY Ondansetron HCl 4 mg 11/28/23 12:43 11/28/23 12:56 Ondansetron 4 Mg/2 Ml Vial IVP 4 mg Q4HR PRN Administration Nausea / Vomiting Pantoprazole Sodium 40 mg 11/28/23 17:00 11/29/23 06:22 Pantoprazole 40 Mg Tablet PO Not Given QDAC MARKY Phenol/Menthol 2 sprays 11/27/23 12:18 11/27/23 12:57 Phenol Throat [place] 177 Ml MM 2 sprays Q2HR PRN Administration Throat Pain Sodium Chloride 10 ml 11/27/23 17:00 11/29/23 08:55 Sodium Chloride Flush 0.9% 10 Ml Syringe IVP Not Given 0100,0900,1700 [facility] - Physical Exam General Appearance: positive: No acute distress, Alert Respiratory: positive: Chest non-tender, No respiratory distress, Breath sounds nml Cardiovascular: positive: Regular rate & rhythm Abdomen: positive: Non-tender. negative: No distention (mild distension) Skin: positive: Color nml, No rash, Warm, Dry Neurologic/Psychiatric: positive: Oriented x3, Mood/affect nml ABX Reporting Has patient been on IV antibiotics over the past 48 hours?: No Impression/Plan - Problem List Problem List: SBO: NGT with 1250cc gastric output, and no further flatus since yesterday morning. HD normal, afebrile, normal WBC/Creatinine, minimal abdominal ttp but mild distension. Gastrograffin has progressed to distal DB vs proximal right colon this morning - will obtain another KUB in 6hrs to assess further. - KUB at 2pm - continue NGT to LIWS - remainder of care per primary Sheryl Escobar DO, FACS General Surgeon
--- NOTE | 2023-11-29 10:16 | XRAY Report ---
PROCEDURE: No-Charge 1V Abdomen INDICATIONS: SBO, follow contrast TECHNIQUE: 1 view of the abdomen were acquired. COMPARISON: Small bowel follow-through challenge from yesterday, CT abdomen and pelvis dated 11/26/19 24. FINDINGS: Surgical changes and devices: NG tube projects to the body of the stomach.. Bowel: Contrast has traveled through the small bowel into the colon. Continued ileus versus small bow el obstruction pattern noted. Soft tissues: No masses; visualized solid organ contours appear normal in size. No suspicious abdom inal calcifications. Bones: No suspicious bony abnormalities. IMPRESSION: Continued ileus versus small bowel obstruction pattern. Contrast is now present throughout the colon. Reviewed by: Jt Tesfaye MD on 11/29/2023 10:15 AM PDT Approved by: Jt Tesfaye MD on 11/29/2023 10:15 AM PDT Station ID: [id number]
--- NOTE | 2023-11-29 11:31 | PROVIDER PROGRESS NOTE ---
Assessment/Plan - Problem List (1) Atrial fibrillation Assessment/Plan: - Problem List (1) Atrial fibrillation Assessment/Plan: --Continue home atenolol. Per general surgery, he is okay for anticoagulation. Eliquis resumed. (2) Small bowel obstruction Assessment/Plan: --NGT in place and set to low intermittent suction. Case was discussed with general surgery. Repeat KUB this afternoon. Received gastrograffin yesterday. (4) CAD (coronary artery disease) Assessment/Plan: --Continue atenolol and atorvastatin. (5) H/O aortic valve replacement Assessment/Plan: --Bioprosthetic aortic valve replacement. He can return to daily aspirin. - Current Meds Current Meds: Current Medications Generic Name Dose Route Start Last Admin Trade Name Freq PRN Reason Stop Dose Admin Acetaminophen 650 mg 11/27/23 13:32 11/28/23 20:46 Acetaminophen 325 Mg Tablet PO 650 mg Q4HR PRN Administration Pain or Fever > 38C (100.4F) Apixaban 5 mg 11/28/23 21:00 11/29/23 08:55 Apixaban 5 Mg Tablet PO 5 mg BID MARKY Administration Atenolol 25 mg 11/28/23 09:00 11/29/23 08:55 Atenolol 25 Mg Tablet PO 25 mg BID MARKY Administration Atorvastatin Calcium 20 mg 11/28/23 21:00 11/28/23 20:47 Atorvastatin 10 Mg Tablet PO 20 mg QPM MARKY Administration Hydromorphone HCl 0.5 mg 11/28/23 07:17 11/29/23 11:07 Hydromorphone 0.5 Mg/0.5 Ml Syringe IVP 0.5 mg Q2H PRN Administration Severe Pain (Level 7-10) Lactated Ringer's 1,000 mls @ 100 mls/hr 11/27/23 21:00 11/29/23 04:45 Lr IV 100 mls/hr .Q10H MARKY Administration Levothyroxine Sodium 100 mcg 11/29/23 07:00 11/29/23 06:21 Levothyroxine 100 Mcg Tablet PO Not Given QDAC MARKY Ondansetron HCl 4 mg 11/28/23 12:43 11/28/23 12:56 Ondansetron 4 Mg/2 Ml Vial IVP 4 mg Q4HR PRN Administration Nausea / Vomiting Pantoprazole Sodium 40 mg 11/28/23 17:00 11/29/23 06:22 Pantoprazole 40 Mg Tablet PO Not Given QDAC [facility] Phenol/Menthol 2 sprays 11/27/23 12:18 11/27/23 12:57 Phenol Throat [place] 177 Ml MM 2 sprays Q2HR PRN Administration Throat Pain Sodium Chloride 10 ml 11/27/23 17:00 11/29/23 08:55 Sodium Chloride Flush 0.9% 10 Ml Syringe IVP Not Given 0100,0900,1700 MARKY - Lab Result Fish Bone Diagrams: 11/29/23 04:18 11/29/23 04:18 - Additional Planning My Orders: My Active Orders 11/28/23 12:43 Ondansetron Inj [Zofran Inj] 4 mg IVP Q4HR PRN Ondansetron Odt [Zofran Odt] 4 mg TL Q4HR PRN 11/28/23 17:00 Pantoprazole [Protonix] 40 mg PO QDAC 11/28/23 21:00 Apixaban [Eliquis] 5 mg PO BID Atorvastatin [Lipitor] 20 mg PO QPM 11/29/23 06:58 NG Tube Care [RC] Q4HR 11/29/23 07:00 Levothyroxine [Synthroid] 100 mcg PO QDAC 11/30/23 05:00 BMP - BASIC METABOLIC PANEL [CHEM] DAILYLAB CBC [CBC - COMP BLD CT W/AUTO DIFF] [HEME] DAILYLAB 12/01/23 05:00 BMP - BASIC METABOLIC PANEL [CHEM] DAILYLAB CBC [CBC - COMP BLD CT W/AUTO DIFF] [HEME] DAILYLAB 12/02/23 05:00 BMP - BASIC METABOLIC PANEL [CHEM] DAILYLAB CBC [CBC - COMP BLD CT W/AUTO DIFF] [HEME] DAILYLAB 12/03/23 05:00 BMP - BASIC METABOLIC PANEL [CHEM] DAILYLAB CBC [CBC - COMP BLD CT W/AUTO DIFF] [HEME] DAILYLAB Subjective - Subjective Patient Reports: Feeling Better, Resting Comfortably Objective Vital Signs: Vital Signs - 24 hr 11/28/23 11/29/23 11/29/23 16:00 00:00 07:33 Temperature 37.2 C 37.5 C 37.0 C Heart Rate [ 86 65 73 Brachial] Respiratory 18 18 18 Rate Blood Pressure 155/84 H 147/76 H 145/78 H [Left Brachial artery] O2 Saturation 96 96 92 Oxygen O2 Source Room air I&O (Last 24 Hrs): Intake and Output Totals x24h 11/27/23 11/28/23 11/29/23 23:59 23:59 23:59 Intake Total 2455 2966.667 1043.333 Output Total 2240 1525 1100 Balance 215 1441.667 -56.667 General: Alert, Oriented x3, Cooperative, No acute distress Cardiovascular: Regular rate, Normal S1, Normal S2, No murmurs Respiratory: Chest non-tender, No respiratory distress, Breath sounds nml Abdomen: Soft - Results Results: Laboratory Results WBC 5.9 x10^3/uL (4.8-10.8) 11/29/23 04:18 RBC 4.52 10^6/uL (4.70-6.10) L 11/29/23 04:18 Hgb 13.6 g/dL (14.0-18.0) L 11/29/23 04:18 Hct 42.2 % (42.0-52.0) 11/29/23 04:18 MCV 93.4 fL (80.0-94.0) 11/29/23 04:18 MCH 30.1 pg (27.0-31.0) 11/29/23 04:18 MCHC 32.2 g/dL (32.0-36.0) 11/29/23 04:18 RDW 13.4 % (12.0-15.0) 11/29/23 04:18 Plt Count 163 10^3/uL (130-450) 11/29/23 04:18 MPV 11.0 fL (7.4-11.4) 11/29/23 04:18 Neut # (Auto) 4.2 10^3/uL (1.5-6.6) 11/29/23 04:18 Lymph # (Auto) 0.7 10^3/uL (1.5-3.5) L 11/29/23 04:18 [place] # (Auto) 0.8 10^3/uL (0.0-1.0) 11/29/23 04:18 Eos # (Auto) 0.1 10^3/uL (0.0-0.7) 11/29/23 04:18 Baso # (Auto) 0.0 10^3/uL (0.0-0.1) 11/29/23 04:18 Absolute Nucleated RBC 0.00 x10^3/uL 11/29/23 04:18 Nucleated RBC % 0.0 /100WBC 11/29/23 04:18 Sodium 140 mmol/L (135-145) 11/29/23 04:18 Potassium 3.7 mmol/L (3.5-4.5) 11/29/23 04:18 Chloride 100 mmol/L (101-111) L 11/29/23 04:18 Carbon Dioxide 33 mmol/L (21-32) H 11/29/23 04:18 Anion Gap 7.0 (6-13) 11/29/23 04:18 BUN 24 mg/dL (6-20) H 11/29/23 04:18 Creatinine 1.1 mg/dL (0.6-1.3) 11/29/23 04:18 Estimated GFR (MDRD) 65 (>89) L 11/29/23 04:18 Glucose 131 mg/dL (74-104) H 11/29/23 04:18 Calcium 9.7 mg/dL (8.5-10.3) 11/29/23 04:18 Phosphorus 2.7 mg/dL (2.5-5.0) 11/28/23 04:21 Magnesium 2.1 mg/dL (1.7-2.3) 11/28/23 04:21 Total Bilirubin 1.0 mg/dL (0.2-1.0) 11/27/23 06:49 AST 26 IU/L (10-42) 11/27/23 06:49 ALT 16 IU/L (10-60) 11/27/23 06:49 Alkaline Phosphatase 109 IU/L (42-121) 11/27/23 06:49 Total Protein 7.7 g/dL (6.4-8.9) 11/27/23 06:49 Albumin 4.6 g/dL (3.2-5.5) 11/27/23 06:49 Globulin 3.1 g/dL (2.1-4.2) 11/27/23 06:49 Albumin/Globulin Ratio 1.5 (1.0-2.2) 11/27/23 06:49 Lipase 34 U/L (11-82) 11/27/23 06:49 Urine Color YELLOW 11/27/23 13:24 Urine Clarity CLEAR (CLEAR) 11/27/23 13:24 Urine pH 5.5 PH (5.0-7.5) 11/27/23 13:24 Ur Specific [place] 1.015 (1.002-1.030) 11/27/23 13:24 Urine Protein TRACE mg/dL (NEGATIVE) 11/27/23 13:24 Urine Glucose (UA) NEGATIVE mg/dL (NEGATIVE) 11/27/23 13:24 Urine Ketones TRACE mg/dL (NEGATIVE) 11/27/23 13:24 Urine Occult Blood NEGATIVE (NEGATIVE) 11/27/23 13:24 Urine Nitrite NEGATIVE (NEGATIVE) 11/27/23 13:24 Urine Bilirubin NEGATIVE (NEGATIVE) 11/27/23 13:24 Urine Urobilinogen 0.2 (NORMAL) E.U./dL (NORMAL) 11/27/23 13:24 Ur Leukocyte Esterase NEGATIVE (NEGATIVE) 11/27/23 13:24 Ur Microscopic Review NOT INDICATED 11/27/23 13:24
[2023-11-30 05:32] LABS: EOSINOPHILS # (AUTO) 0.2 10^3/uL (0.0-0.7); EOSINOPHILS % (AUTO) 5.7 %; HCT - HEMATOCRIT 37.9 % (42.0-52.0); LYMPHOCYTES # (AUTO) 0.6 10^3/uL (1.5-3.5); MEAN CORPUSCULAR HEMOGLOBIN 29.7 pg (27.0-31.0); MEAN CORPUSCULAR HGB CONC 31.7 g/dL (32.0-36.0); MEAN CORPUSCULAR VOLUME 93.8 fL (80.0-94.0); MEAN PLATELET VOLUME 10.9 fL (7.4-11.4); MONOCYTES # (AUTO) 0.7 10^3/uL (0.0-1.0); MONOCYTES % (AUTO) 17.6 %; NEUTROPHILS # (AUTO) 2.3 10^3/uL (1.5-6.6); NEUTROPHILS % (AUTO) 59.7 %; PLT - PLATELET COUNT 152 10^3/uL (130-450); RED BLOOD COUNT 4.04 10^6/uL (4.70-6.10); RED CELL DISTRIBUTION WIDTH 13.1 % (12.0-15.0); WHITE BLOOD COUNT 3.9 x10^3/uL (4.8-10.8)
[2023-11-30 05:49] LABS: CALCIUM 9.3 mg/dL (8.5-10.3); CREATININE 0.9 mg/dL (0.6-1.3); POTASSIUM 3.6 mmol/L (3.5-4.5)
--- NOTE | 2023-11-30 08:42 | PROVIDER PROGRESS NOTE ---
Subjective - General Admit Date: 11/27/23 - Review of Systems Drain Type: NGT Drain Output Description: gastric Approximate mls Output: 2200 (700cc clear liquids intake) General: positive: No symptoms Pulmonary: positive: No symptoms Cardiovascular: positive: No symptoms Gastrointestinal: positive: Abdominal pain (mild), Flatus Skin: positive: No symptoms Psychiatric: positive: No symptoms - Other Other Information/Narrative: 24hr events: Contrast into colon on KUB. No abdominal pain, + flatus and small BM this AM. 1200 out of NGT but also taking in 700cc of clear liquids. ENdorses hunger this morning. Objective - Patient Data Reviewed Vital Signs: Yes Vital Signs: Vital Signs x48h Temp Pulse Resp BP Pulse Ox 11/30/23 08:39 95 11/30/23 08:00 37.8 C 62 22 130/98 H Intake & Output: Intake and Output Totals x24h 11/28/23 11/29/23 11/30/23 23:59 23:59 23:59 Intake Total 2966.667 3665.000 20 Output Total 1525 2800 100 Balance 1441.667 865.000 -80 - Lab Results Lab Results: 11/30/23 05:21 11/30/23 05:21 Other Lab Results: Lab Results x24hrs 11/30/23 11/30/23 Range/Units 05:21 05:21 WBC 3.9 L (4.8-10.8) x10^3/uL RBC 4.04 L (4.70-6.10) 10^6/uL Hgb 12.0 L (14.0-18.0) g/dL Hct 37.9 L (42.0-52.0) % MCV 93.8 (80.0-94.0) fL MCH 29.7 (27.0-31.0) pg MCHC 31.7 L (32.0-36.0) g/dL RDW 13.1 (12.0-15.0) % Plt Count 152 (130-450) 10^3/uL MPV 10.9 (7.4-11.4) fL Neut # (Auto) 2.3 (1.5-6.6) 10^3/uL Lymph # (Auto) 0.6 L (1.5-3.5) 10^3/uL [place] # (Auto) 0.7 (0.0-1.0) 10^3/uL Eos # (Auto) 0.2 (0.0-0.7) 10^3/uL Baso # (Auto) 0.0 (0.0-0.1) 10^3/uL Absolute Nucleated RBC 0.00 x10^3/uL Nucleated RBC % 0.0 /100WBC Sodium 137 (135-145) mmol/L Potassium 3.6 (3.5-4.5) mmol/L Chloride 100 L (101-111) mmol/L Carbon Dioxide 32 (21-32) mmol/L Anion Gap 5.0 L (6-13) BUN 21 H (6-20) mg/dL Creatinine 0.9 (0.6-1.3) mg/dL Estimated GFR (MDRD) 81 L (>89) Glucose 107 H (74-104) mg/dL Calcium 9.3 (8.5-10.3) mg/dL - Current Medications Current Medications: Current Medications Generic Name Dose Route Start Last Admin Trade Name Freq PRN Reason Stop Dose Admin Acetaminophen 650 mg 11/27/23 13:32 11/30/23 03:17 Acetaminophen 325 Mg Tablet PO 650 mg Q4HR PRN Administration Pain or Fever > 38C (100.4F) Apixaban 5 mg 11/28/23 21:00 11/29/23 20:38 Apixaban 5 Mg Tablet PO 5 mg BID MARKY Administration Atenolol 25 mg 11/28/23 09:00 11/29/23 20:38 Atenolol 25 Mg Tablet PO 25 mg BID MARKY Administration Atorvastatin Calcium 20 mg 11/28/23 21:00 11/29/23 20:38 Atorvastatin 10 Mg Tablet PO 20 mg QPM MARKY Administration Hydromorphone HCl 0.5 mg 11/28/23 07:17 11/30/23 03:17 Hydromorphone 0.5 Mg/0.5 Ml Syringe IVP 0.5 mg Q2H PRN Administration Severe Pain (Level 7-10) Lactated Ringer's 1,000 mls @ 100 mls/hr 11/27/23 21:00 11/29/23 23:58 Lr IV 100 mls/hr .Q10H MARKY Administration Levothyroxine Sodium 100 mcg 11/29/23 07:00 11/30/23 03:22 Levothyroxine 100 Mcg Tablet PO 100 mcg QDAC MARKY Administration Ondansetron HCl 4 mg 11/28/23 12:43 11/28/23 12:56 Ondansetron 4 Mg/2 Ml Vial IVP 4 mg Q4HR PRN Administration Nausea / Vomiting Pantoprazole Sodium 40 mg 11/28/23 17:00 11/30/23 03:22 Pantoprazole 40 Mg Tablet PO 40 mg QDAC MARKY Administration Phenol/Menthol 2 sprays 11/27/23 12:18 11/27/23 12:57 Phenol Throat [place] 177 Ml MM 2 sprays Q2HR PRN Administration Throat Pain Sodium Chloride 10 ml 11/27/23 17:00 11/30/23 00:28 Sodium Chloride Flush 0.9% 10 Ml Syringe IVP Not Given 0100,0900,1700 [facility] - Physical Exam General Appearance: positive: No acute distress, Alert Respiratory: positive: Chest non-tender, No respiratory distress, Breath sounds nml Cardiovascular: positive: Regular rate & rhythm Abdomen: positive: Non-tender, No organomegaly, Nml bowel sounds, No distention Neurologic/Psychiatric: positive: Oriented x3, Mood/affect nml Impression/Plan - Problem List Problem List: SBO - resolved - DC NGT - start clear liquids, ADAT to regular Sheryl Escobar DO, FACS General Surgeon
--- NOTE | 2023-11-30 17:55 | PROVIDER PROGRESS NOTE ---
Assessment/Plan - Problem List (1) Atrial fibrillation Assessment/Plan: (1) Atrial fibrillation Assessment/Plan: --Continue home atenolol. Per general surgery, he is okay for anticoagulation. Eliquis resumed. (2) Small bowel obstruction Assessment/Plan: --NG tube removed this AM. Tolerated CLD. ADAT. (4) CAD (coronary artery disease) Assessment/Plan: --Continue atenolol and atorvastatin. (5) H/O aortic valve replacement Assessment/Plan: --Bioprosthetic aortic valve replacement. He can return to daily aspirin. - Current Meds Current Meds: Current Medications Generic Name Dose Route Start Last Admin Trade Name Freq PRN Reason Stop Dose Admin Acetaminophen 650 mg 11/27/23 13:32 11/30/23 03:17 Acetaminophen 325 Mg Tablet PO 650 mg Q4HR PRN Administration Pain or Fever > 38C (100.4F) Apixaban 5 mg 11/28/23 21:00 11/30/23 08:40 Apixaban 5 Mg Tablet PO 5 mg BID MARKY Administration Atenolol 25 mg 11/28/23 09:00 11/30/23 08:40 Atenolol 25 Mg Tablet PO 25 mg BID MARKY Administration Atorvastatin Calcium 20 mg 11/28/23 21:00 11/29/23 20:38 Atorvastatin 10 Mg Tablet PO 20 mg QPM MARKY Administration Hydromorphone HCl 0.5 mg 11/28/23 07:17 11/30/23 12:52 Hydromorphone 0.5 Mg/0.5 Ml Syringe IVP 0.5 mg Q2H PRN Administration Severe Pain (Level 7-10) Levothyroxine Sodium 100 mcg 11/29/23 07:00 11/30/23 03:22 Levothyroxine 100 Mcg Tablet PO 100 mcg QDAC MARYK Administration Ondansetron HCl 4 mg 11/28/23 12:43 11/28/23 12:56 Ondansetron 4 Mg/2 Ml Vial IVP 4 mg Q4HR PRN Administration Nausea / Vomiting Pantoprazole Sodium 40 mg 11/28/23 17:00 11/30/23 03:22 Pantoprazole 40 Mg Tablet PO 40 mg QDAC MARKY Administration Phenol/Menthol 2 sprays 11/27/23 12:18 11/27/23 12:57 Phenol Throat [place] 177 Ml MM 2 sprays Q2HR PRN Administration Throat Pain Sodium Chloride 10 ml 11/27/23 17:00 11/30/23 08:41 Sodium Chloride Flush 0.9% 10 Ml Syringe IVP Not Given 0100,0900,1700 MARKY - Lab Result Fish Bone Diagrams: 12/01/23 05:15 12/01/23 05:15 - Additional Planning My Orders: My Active Orders 11/30/23 Dinner Regular Diet [DIET] 11/30/23 18:00 Simethicone [Mylicon] 80 mg PO 0900,1300,1800,2100 11/30/23 21:00 traZODone [Desyrel] 50 mg PO QPM 12/01/23 05:00 BMP - BASIC METABOLIC PANEL [CHEM] DAILYLAB CBC [CBC - COMP BLD CT W/AUTO DIFF] [HEME] DAILYLAB 12/02/23 05:00 BMP - BASIC METABOLIC PANEL [CHEM] DAILYLAB CBC [CBC - COMP BLD CT W/AUTO DIFF] [HEME] DAILYLAB 12/03/23 05:00 BMP - BASIC METABOLIC PANEL [CHEM] DAILYLAB CBC [CBC - COMP BLD CT W/AUTO DIFF] [HEME] DAILYLAB Objective Vital Signs: Vital Signs - 24 hr 11/29/23 11/30/23 11/30/23 23:50 08:00 08:39 Temperature 37.0 C 37.8 C Heart Rate [ 62 62 Brachial] Respiratory 18 22 Rate Blood Pressure 137/69 H 130/98 H [Left Brachial artery] O2 Saturation 96 95 11/30/23 16:00 Temperature 37.7 C Heart Rate [ 91 Brachial] Respiratory 22 Rate Blood Pressure 144/65 H [Left Brachial artery] O2 Saturation 95 Oxygen O2 Source Room air I&O (Last 24 Hrs): Intake and Output Totals x24h 11/28/23 11/29/23 11/30/23 23:59 23:59 23:59 Intake Total 2966.667 3665.000 1448.333 Output Total 1525 2800 100 Balance 1441.667 037.871 2493.333 - Results Results: Laboratory Results WBC 3.9 x10^3/uL (4.8-10.8) L 11/30/23 05:21 RBC 4.04 10^6/uL (4.70-6.10) L 11/30/23 05:21 Hgb 12.0 g/dL (14.0-18.0) L 11/30/23 05:21 Hct 37.9 % (42.0-52.0) L 11/30/23 05:21 MCV 93.8 fL (80.0-94.0) 11/30/23 05:21 MCH 29.7 pg (27.0-31.0) 11/30/23 05:21 MCHC 31.7 g/dL (32.0-36.0) L 11/30/23 05:21 RDW 13.1 % (12.0-15.0) 11/30/23 05:21 Plt Count 152 10^3/uL (130-450) 11/30/23 05:21 MPV 10.9 fL (7.4-11.4) 11/30/23 05:21 Neut # (Auto) 2.3 10^3/uL (1.5-6.6) 11/30/23 05:21 Lymph # (Auto) 0.6 10^3/uL (1.5-3.5) L 11/30/23 05:21 [place] # (Auto) 0.7 10^3/uL (0.0-1.0) 11/30/23 05:21 Eos # (Auto) 0.2 10^3/uL (0.0-0.7) 11/30/23 05:21 Baso # (Auto) 0.0 10^3/uL (0.0-0.1) 11/30/23 05:21 Absolute Nucleated RBC 0.00 x10^3/uL 11/30/23 05:21 Nucleated RBC % 0.0 /100WBC 11/30/23 05:21 Sodium 137 mmol/L (135-145) 11/30/23 05:21 Potassium 3.6 mmol/L (3.5-4.5) 11/30/23 05:21 Chloride 100 mmol/L (101-111) L 11/30/23 05:21 Carbon Dioxide 32 mmol/L (21-32) 11/30/23 05:21 Anion Gap 5.0 (6-13) L 11/30/23 05:21 BUN 21 mg/dL (6-20) H 11/30/23 05:21 Creatinine 0.9 mg/dL (0.6-1.3) 11/30/23 05:21 Estimated GFR (MDRD) 81 (>89) L 11/30/23 05:21 Glucose 107 mg/dL (74-104) H 11/30/23 05:21 Calcium 9.3 mg/dL (8.5-10.3) 11/30/23 05:21 Phosphorus 2.7 mg/dL (2.5-5.0) 11/28/23 04:21 Magnesium 2.1 mg/dL (1.7-2.3) 11/28/23 04:21 Total Bilirubin 1.0 mg/dL (0.2-1.0) 11/27/23 06:49 AST 26 IU/L (10-42) 11/27/23 06:49 ALT 16 IU/L (10-60) 11/27/23 06:49 Alkaline Phosphatase 109 IU/L (42-121) 11/27/23 06:49 Total Protein 7.7 g/dL (6.4-8.9) 11/27/23 06:49 Albumin 4.6 g/dL (3.2-5.5) 11/27/23 06:49 Globulin 3.1 g/dL (2.1-4.2) 11/27/23 06:49 Albumin/Globulin Ratio 1.5 (1.0-2.2) 11/27/23 06:49 Lipase 34 U/L (11-82) 11/27/23 06:49 Urine Color YELLOW 11/27/23 13:24 Urine Clarity CLEAR (CLEAR) 11/27/23 13:24 Urine pH 5.5 PH (5.0-7.5) 11/27/23 13:24 Ur Specific [place] 1.015 (1.002-1.030) 11/27/23 13:24 Urine Protein TRACE mg/dL (NEGATIVE) 11/27/23 13:24 Urine Glucose (UA) NEGATIVE mg/dL (NEGATIVE) 11/27/23 13:24 Urine Ketones TRACE mg/dL (NEGATIVE) 11/27/23 13:24 Urine Occult Blood NEGATIVE (NEGATIVE) 11/27/23 13:24 Urine Nitrite NEGATIVE (NEGATIVE) 11/27/23 13:24 Urine Bilirubin NEGATIVE (NEGATIVE) 11/27/23 13:24 Urine Urobilinogen 0.2 (NORMAL) E.U./dL (NORMAL) 11/27/23 13:24 Ur Leukocyte Esterase NEGATIVE (NEGATIVE) 11/27/23 13:24 Ur Microscopic Review NOT INDICATED 11/27/23 13:24
[2023-11-30] MEDS: SIMETHICONE CHEW 80 MG TABLET PO SCH (18:01)
[2023-11-30] MEDS: traZODone 50 MG TABLET PO SCH (20:45)
[2023-12-01] MEDS: SODIUM CHLORIDE FLUSH 0.9% 10 ML SYRINGE IVP PRN (00:26)
[2023-12-01 05:57] LABS: BASOPHILS # (AUTO) 0.1 10^3/uL (0.0-0.1); BASOPHILS % (AUTO) 0.9 %; EOSINOPHILS # (AUTO) 0.2 10^3/uL (0.0-0.7); HCT - HEMATOCRIT 40.9 % (42.0-52.0); HGB - HEMOGLOBIN 13.4 g/dL (14.0-18.0); LYMPHOCYTES # (AUTO) 0.8 10^3/uL (1.5-3.5); LYMPHOCYTES % (AUTO) 13.3 %; MEAN CORPUSCULAR HEMOGLOBIN 30.1 pg (27.0-31.0); MEAN CORPUSCULAR HGB CONC 32.8 g/dL (32.0-36.0); MEAN CORPUSCULAR VOLUME 91.9 fL (80.0-94.0); MONOCYTES # (AUTO) 0.8 10^3/uL (0.0-1.0); MONOCYTES % (AUTO) 13.5 %; NEUTROPHILS # (AUTO) 3.9 10^3/uL (1.5-6.6); NEUTROPHILS % (AUTO) 67.8 %; PLT - PLATELET COUNT 187 10^3/uL (130-450); RED BLOOD COUNT 4.45 10^6/uL (4.70-6.10); RED CELL DISTRIBUTION WIDTH 13.1 % (12.0-15.0); WHITE BLOOD COUNT 5.7 x10^3/uL (4.8-10.8)
[2023-12-01 06:15] LABS: CALCIUM 9.5 mg/dL (8.5-10.3); POTASSIUM 3.7 mmol/L (3.5-4.5)
--- NOTE | 2023-12-01 07:56 | PROVIDER PROGRESS NOTE ---
Subjective - General Admit Date: 11/27/23 - Review of Systems General: positive: No symptoms Pulmonary: positive: No symptoms Cardiovascular: positive: No symptoms Gastrointestinal: positive: Flatus. negative: Abdominal pain Skin: positive: No symptoms Psychiatric: positive: No symptoms - Other Other Information/Narrative: 24hr events: NGT removed, advanced to clears then regular diet. + flatus and small BM. Im proved abdominal pain. Objective - Patient Data Reviewed Vital Signs: Yes Intake & Output: Intake and Output Totals x24h 11/29/23 11/30/23 12/01/23 23:59 23:59 23:59 Intake Total 3665.000 1668.333 100 Output Total 2800 100 Balance 362.702 7662.333 100 - Lab Results Lab Results: 12/01/23 05:15 12/01/23 05:15 Other Lab Results: Lab Results x24hrs 12/01/23 12/01/23 Range/Units 05:15 05:15 WBC 5.7 (4.8-10.8) x10^3/uL RBC 4.45 L (4.70-6.10) 10^6/uL Hgb 13.4 L (14.0-18.0) g/dL Hct 40.9 L (42.0-52.0) % MCV 91.9 (80.0-94.0) fL MCH 30.1 (27.0-31.0) pg MCHC 32.8 (32.0-36.0) g/dL RDW 13.1 (12.0-15.0) % Plt Count 187 (130-450) 10^3/uL MPV 11.0 (7.4-11.4) fL Neut # (Auto) 3.9 (1.5-6.6) 10^3/uL Lymph # (Auto) 0.8 L (1.5-3.5) 10^3/uL [place] # (Auto) 0.8 (0.0-1.0) 10^3/uL Eos # (Auto) 0.2 (0.0-0.7) 10^3/uL Baso # (Auto) 0.1 (0.0-0.1) 10^3/uL Absolute Nucleated RBC 0.00 x10^3/uL Nucleated RBC % 0.0 /100WBC Sodium 136 (135-145) mmol/L Potassium 3.7 (3.5-4.5) mmol/L Chloride 99 L (101-111) mmol/L Carbon Dioxide 31 (21-32) mmol/L Anion Gap 6.0 (6-13) BUN 18 (6-20) mg/dL Creatinine 1.0 (0.6-1.3) mg/dL Estimated GFR (MDRD) 72 L (>89) Glucose 130 H (74-104) mg/dL Calcium 9.5 (8.5-10.3) mg/dL - Current Medications Current Medications: Current Medications Generic Name Dose Route Start Last Admin Trade Name Freq PRN Reason Stop Dose Admin Acetaminophen 650 mg 11/27/23 13:32 11/30/23 03:17 Acetaminophen 325 Mg Tablet PO 650 mg Q4HR PRN Administration Pain or Fever > 38C (100.4F) Apixaban 5 mg 11/28/23 21:00 11/30/23 20:45 Apixaban 5 Mg Tablet PO 5 mg BID MARKY Administration Atenolol 25 mg 11/28/23 09:00 11/30/23 20:45 Atenolol 25 Mg Tablet PO 25 mg BID MARKY Administration Atorvastatin Calcium 20 mg 11/28/23 21:00 11/30/23 20:45 Atorvastatin 10 Mg Tablet PO 20 mg QPM MARKY Administration Hydromorphone HCl 0.5 mg 11/28/23 07:17 12/01/23 00:26 Hydromorphone 0.5 Mg/0.5 Ml Syringe IVP 0.5 mg Q2H PRN Administration Severe Pain (Level 7-10) Levothyroxine Sodium 100 mcg 11/29/23 07:00 12/01/23 05:11 Levothyroxine 100 Mcg Tablet PO 100 mcg QDAC MARKY Administration Ondansetron HCl 4 mg 11/28/23 12:43 11/28/23 12:56 Ondansetron 4 Mg/2 Ml Vial IVP 4 mg Q4HR PRN Administration Nausea / Vomiting Pantoprazole Sodium 40 mg 11/28/23 17:00 12/01/23 05:11 Pantoprazole 40 Mg Tablet PO 40 mg QDAC MARKY Administration Phenol/Menthol 2 sprays 11/27/23 12:18 11/27/23 12:57 Phenol Throat [place] 177 Ml MM 2 sprays Q2HR PRN Administration Throat Pain Simethicone 80 mg 11/30/23 18:00 12/01/23 05:12 Simethicone Chew 80 Mg Tablet PO 80 mg 0900,1300,1800,2100 MARKY Administration Sodium Chloride 10 ml 11/27/23 08:53 12/01/23 00:26 Sodium Chloride Flush 0.9% 10 Ml Syringe IVP 10 ml PRN PRN Administration NEEDED PER PROVIDER ORDERS Sodium Chloride 10 ml 11/27/23 17:00 11/30/23 23:51 Sodium Chloride Flush 0.9% 10 Ml Syringe IVP 10 ml 0100,0900,1700 MARKY Administration Trazodone HCl 50 mg 11/30/23 21:00 11/30/23 20:45 Trazodone 50 Mg Tablet PO 50 mg QPM MARKY Administration - Physical Exam General Appearance: positive: No acute distress, Alert Cardiovascular: positive: Regular rate & rhythm Abdomen: positive: Non-tender, No organomegaly, Nml bowel sounds, No distention Skin: positive: Color nml, No rash, Warm, Dry Neurologic/Psychiatric: positive: Oriented x3, Mood/affect nml Impression/Plan - Problem List Problem List: SBO - resolved, tolerating regualar diet. Surgery to sign off. DC home as per primary team. Sheryl Escobar DO, FACS General Surgery
[2023-12-01] MEDS: LACTULOSE 10 GM /15 ML UDC PO SCH (09:00)
--- NOTE | 2023-12-01 14:38 | XRAY Report ---
PROCEDURE: Abdomen 1 V INDICATIONS: SBO TECHNIQUE: One view of the abdomen acquired. COMPARISON: CT 11/26/2023, x-ray 11/29/2023 FINDINGS: Surgical changes and devices: None. Bowel: Similar distended loops of small bowel. Intraluminal contrast is within the small bowel. Soft tissues: No suspicious abdominal calcifications. Visualized solid organ contours appear normal in size. Bones: No suspicious bony lesions. Partially visualized sternotomy wires. IMPRESSION: Similar distention of small bowel loops, without interval passage of contrast into the large bowel. F indings suggest persistent small bowel obstruction. Reviewed by: Thomas Montano MD on 12/01/2023 2:37 PM PDT Approved by: Thomas Montano MD on 12/01/2023 2:37 PM PDT Station ID: [id number]
--- NOTE | 2023-12-01 15:21 | PROVIDER PROGRESS NOTE ---
Restraint [id number] - Immediate Situation Face to Face Evaluation Date: 12/01/23 Face to Face Evaluation Time: 15:19 Restraint Classification: Violent, chemical - Patient's Reaction & Behaviors Safety: Physically unsafe, Non-compliant, Unable to Follow Commands Verbal: Screaming/Yelling, Swearing Harm: Potential harm to others, Verbalizes intent to harm Physical: Aggressive behavior, Throwing objects - Behavioral Condition Attitude: Other Behavior: Uncooperative, Belligerent, Agitated Orientation: Non-responsive Mood: Other Behavioral Condition Comments: Laying in bed and sedated at time of face to face. - Evaluation Pertinent History/Illicit Drugs/Medications/Results: History of meth use 3 days prior. Acute psychosis secondary to drug intoxication. - Plan Need to Initiate/Renew Violent or Chemical Restraint: Need to initiate.
--- NOTE | 2023-12-01 16:38 | PROVIDER PROGRESS NOTE ---
Assessment/Plan - Problem List (1) Atrial fibrillation Assessment/Plan: (1) Atrial fibrillation Assessment/Plan: (1) Atrial fibrillation Assessment/Plan: --Continue home atenolol. Per general surgery, he is okay for anticoagulation. Eliquis resumed. (2) Small bowel obstruction Assessment/Plan: --Trialed a regular diet this AM and he began having abdominal pain. Repeat KUB showed a persistent SBO. Case was discussed with general surgery art education professor who will see in AM. --In the meantime I encouraged him to ambulate TID. Hold off on food for now. --We did discuss holding off on replacing the NGT unless symptoms worsen. (4) CAD (coronary artery disease) Assessment/Plan: --Continue atenolol and atorvastatin. (5) H/O aortic valve replacement Assessment/Plan: --Bioprosthetic aortic valve replacement. He can return to daily aspirin. - Current Meds Current Meds: Current Medications Generic Name Dose Route Start Last Admin Trade Name Freq PRN Reason Stop Dose Admin Acetaminophen 650 mg 11/27/23 13:32 11/30/23 03:17 Acetaminophen 325 Mg Tablet PO 650 mg Q4HR PRN Administration Pain or Fever > 38C (100.4F) Apixaban 5 mg 11/28/23 21:00 12/01/23 09:00 Apixaban 5 Mg Tablet PO 5 mg BID MARKY Administration Atenolol 25 mg 11/28/23 09:00 12/01/23 09:00 Atenolol 25 Mg Tablet PO 25 mg BID MARKY Administration Atorvastatin Calcium 20 mg 11/28/23 21:00 11/30/23 20:45 Atorvastatin 10 Mg Tablet PO 20 mg QPM MARKY Administration Hydromorphone HCl 0.5 mg 11/28/23 07:17 12/01/23 13:13 Hydromorphone 0.5 Mg/0.5 Ml Syringe IVP 0.5 mg Q2H PRN Administration Severe Pain (Level 7-10) Lactulose 10 gm 12/01/23 09:00 12/01/23 09:00 Lactulose 10 Gm /15 Ml Udc PO 10 gm DAILY MARKY Administration Levothyroxine Sodium 100 mcg 11/29/23 07:00 12/01/23 05:11 Levothyroxine 100 Mcg Tablet PO 100 mcg QDAC MARKY Administration Ondansetron HCl 4 mg 11/28/23 12:43 11/28/23 12:56 Ondansetron 4 Mg/2 Ml Vial IVP 4 mg Q4HR PRN Administration Nausea / Vomiting Pantoprazole Sodium 40 mg 11/28/23 17:00 12/01/23 05:11 Pantoprazole 40 Mg Tablet PO 40 mg QDAC MARKY Administration Phenol/Menthol 2 sprays 11/27/23 12:18 11/27/23 12:57 Phenol Throat [place] 177 Ml MM 2 sprays Q2HR PRN Administration Throat Pain Simethicone 80 mg 11/30/23 18:00 12/01/23 12:33 Simethicone Chew 80 Mg Tablet PO 80 mg 0900,1300,1800,2100 MARKY Administration Sodium Chloride 10 ml 11/27/23 08:53 12/01/23 00:26 Sodium Chloride Flush 0.9% 10 Ml Syringe IVP 10 ml PRN PRN Administration NEEDED PER PROVIDER ORDERS Sodium Chloride 10 ml 11/27/23 17:00 12/01/23 09:00 Sodium Chloride Flush 0.9% 10 Ml Syringe IVP 10 ml 0100,0900,1700 MARKY Administration Trazodone HCl 50 mg 11/30/23 21:00 11/30/23 20:45 Trazodone 50 Mg Tablet PO 50 mg QPM MARKY Administration - Lab Result Fish Bone Diagrams: 12/01/23 05:15 12/01/23 05:15 - Additional Planning My Orders: My Active Orders 11/30/23 18:00 Simethicone [Mylicon] 80 mg PO 0900,1300,1800,2100 11/30/23 21:00 traZODone [Desyrel] 50 mg PO QPM 12/01/23 09:00 Lactulose [Enulose] 10 gm PO DAILY 12/01/23 Dinner Clear Liquid Diet [DIET] 12/02/23 05:00 BMP - BASIC METABOLIC PANEL [CHEM] DAILYLAB CBC [CBC - COMP BLD CT W/AUTO DIFF] [HEME] DAILYLAB 12/03/23 05:00 BMP - BASIC METABOLIC PANEL [CHEM] DAILYLAB CBC [CBC - COMP BLD CT W/AUTO DIFF] [HEME] DAILYLAB Objective Vital Signs: Vital Signs - 24 hr 11/30/23 11/30/23 12/01/23 20:28 23:46 07:48 Temperature 37.2 C 37.2 C 37.1 C Heart Rate [ 61 56 L 61 Brachial] Respiratory 24 16 16 Rate Blood Pressure 143/60 H 135/58 H 163/84 H [Left Brachial artery] O2 Saturation 93 93 12/01/23 15:46 Temperature 37.0 C Heart Rate [ 55 L Brachial] Respiratory 18 Rate Blood Pressure 146/77 H [Left Brachial artery] O2 Saturation 95 Oxygen O2 Source Room air I&O (Last 24 Hrs): Intake and Output Totals x24h 11/29/23 11/30/23 12/01/23 23:59 23:59 23:59 Intake Total 3665.000 1668.333 460 Output Total 2800 100 Balance 525.484 9141.333 460 - Results Results: Laboratory Results WBC 5.7 x10^3/uL (4.8-10.8) 12/01/23 05:15 RBC 4.45 10^6/uL (4.70-6.10) L 12/01/23 05:15 Hgb 13.4 g/dL (14.0-18.0) L 12/01/23 05:15 Hct 40.9 % (42.0-52.0) L 12/01/23 05:15 MCV 91.9 fL (80.0-94.0) 12/01/23 05:15 MCH 30.1 pg (27.0-31.0) 12/01/23 05:15 MCHC 32.8 g/dL (32.0-36.0) 12/01/23 05:15 RDW 13.1 % (12.0-15.0) 12/01/23 05:15 Plt Count 187 10^3/uL (130-450) 12/01/23 05:15 MPV 11.0 fL (7.4-11.4) 12/01/23 05:15 Neut # (Auto) 3.9 10^3/uL (1.5-6.6) 12/01/23 05:15 Lymph # (Auto) 0.8 10^3/uL (1.5-3.5) L 12/01/23 05:15 [place] # (Auto) 0.8 10^3/uL (0.0-1.0) 12/01/23 05:15 Eos # (Auto) 0.2 10^3/uL (0.0-0.7) 12/01/23 05:15 Baso # (Auto) 0.1 10^3/uL (0.0-0.1) 12/01/23 05:15 Absolute Nucleated RBC 0.00 x10^3/uL 12/01/23 05:15 Nucleated RBC % 0.0 /100WBC 12/01/23 05:15 Sodium 136 mmol/L (135-145) 12/01/23 05:15 Potassium 3.7 mmol/L (3.5-4.5) 12/01/23 05:15 Chloride 99 mmol/L (101-111) L 12/01/23 05:15 Carbon Dioxide 31 mmol/L (21-32) 12/01/23 05:15 Anion Gap 6.0 (6-13) 12/01/23 05:15 BUN 18 mg/dL (6-20) 12/01/23 05:15 Creatinine 1.0 mg/dL (0.6-1.3) 12/01/23 05:15 Estimated GFR (MDRD) 72 (>89) L 12/01/23 05:15 Glucose 130 mg/dL (74-104) H 12/01/23 05:15 Calcium 9.5 mg/dL (8.5-10.3) 12/01/23 05:15 Phosphorus 2.7 mg/dL (2.5-5.0) 11/28/23 04:21 Magnesium 2.1 mg/dL (1.7-2.3) 11/28/23 04:21 Total Bilirubin 1.0 mg/dL (0.2-1.0) 11/27/23 06:49 AST 26 IU/L (10-42) 11/27/23 06:49 ALT 16 IU/L (10-60) 11/27/23 06:49 Alkaline Phosphatase 109 IU/L (42-121) 11/27/23 06:49 Total Protein 7.7 g/dL (6.4-8.9) 11/27/23 06:49 Albumin 4.6 g/dL (3.2-5.5) 11/27/23 06:49 Globulin 3.1 g/dL (2.1-4.2) 11/27/23 06:49 Albumin/Globulin Ratio 1.5 (1.0-2.2) 11/27/23 06:49 Lipase 34 U/L (11-82) 11/27/23 06:49 Urine Color YELLOW 11/27/23 13:24 Urine Clarity CLEAR (CLEAR) 11/27/23 13:24 Urine pH 5.5 PH (5.0-7.5) 11/27/23 13:24 Ur Specific [place] 1.015 (1.002-1.030) 11/27/23 13:24 Urine Protein TRACE mg/dL (NEGATIVE) 11/27/23 13:24 Urine Glucose (UA) NEGATIVE mg/dL (NEGATIVE) 11/27/23 13:24 Urine Ketones TRACE mg/dL (NEGATIVE) 11/27/23 13:24 Urine Occult Blood NEGATIVE (NEGATIVE) 11/27/23 13:24 Urine Nitrite NEGATIVE (NEGATIVE) 11/27/23 13:24 Urine Bilirubin NEGATIVE (NEGATIVE) 11/27/23 13:24 Urine Urobilinogen 0.2 (NORMAL) E.U./dL (NORMAL) 11/27/23 13:24 Ur Leukocyte Esterase NEGATIVE (NEGATIVE) 11/27/23 13:24 Ur Microscopic Review NOT INDICATED 11/27/23 13:24
[2023-12-02 05:42] LABS: BASOPHILS # (AUTO) 0.1 10^3/uL (0.0-0.1); EOSINOPHILS # (AUTO) 0.2 10^3/uL (0.0-0.7); EOSINOPHILS % (AUTO) 2.4 %; HCT - HEMATOCRIT 41.4 % (42.0-52.0); HGB - HEMOGLOBIN 13.3 g/dL (14.0-18.0); LYMPHOCYTES # (AUTO) 0.5 10^3/uL (1.5-3.5); LYMPHOCYTES % (AUTO) 8.7 %; MEAN CORPUSCULAR HEMOGLOBIN 30.2 pg (27.0-31.0); MEAN CORPUSCULAR HGB CONC 32.1 g/dL (32.0-36.0); MEAN CORPUSCULAR VOLUME 93.9 fL (80.0-94.0); MEAN PLATELET VOLUME 10.9 fL (7.4-11.4); MONOCYTES # (AUTO) 0.9 10^3/uL (0.0-1.0); MONOCYTES % (AUTO) 14.4 %; NEUTROPHILS # (AUTO) 4.6 10^3/uL (1.5-6.6); NEUTROPHILS % (AUTO) 73.2 %; PLT - PLATELET COUNT 170 10^3/uL (130-450); RED BLOOD COUNT 4.41 10^6/uL (4.70-6.10); RED CELL DISTRIBUTION WIDTH 13.1 % (12.0-15.0); WHITE BLOOD COUNT 6.2 x10^3/uL (4.8-10.8)
[2023-12-02 05:57] LABS: CALCIUM 9.3 mg/dL (8.5-10.3); CREATININE 1.1 mg/dL (0.6-1.3); POTASSIUM 4.1 mmol/L (3.5-4.5)
--- NOTE | 2023-12-02 11:13 | XRAY Report ---
PROCEDURE: Chest for Line Placement INDICATIONS: NG Tube placement verification TECHNIQUE: One view of the chest was acquired. COMPARISON: 11/28/2023 FINDINGS: Surgical changes and devices: Nasogastric tube in the stomach. Midline sternal wires present. Cardia c valve prosthesis Lungs and pleura: Mild vascular congestion and right basilar atelectasis and or infiltrate greater o n the right Mediastinum: Mediastinal contours appear normal. Heart size is enlarged Bones and chest wall: No suspicious bony lesions. Overlying soft tissues appear unremarkable. IMPRESSION: Nasogastric tube in stomach. Right basilar atelectasis and or infiltrate Reviewed by: Berto Mims MD on 12/02/2023 10:11 AM LLUVIA Approved by: Berto Mims MD on 12/02/2023 10:11 AM AKTHALIA Station ID: [id number]
[2023-12-02] MEDS: AZITHROMYCIN INJ 500 MG in SODIUM CHLORIDE 0.9% 250 ML IV SCH (12:04)
[2023-12-02] MEDS: cefTRIAXone 2 GM in SODIUM CHLORIDE 0.9% MINIBAG 100 ML IV SCH (13:41)
--- NOTE | 2023-12-02 13:52 | PROVIDER PROGRESS NOTE ---
Subjective - Subjective Pt reports feeling: Improved (feeling better with ngt back. denies significant abdominal pain) Objective - Vital Signs/Intake & Output Reviewed Vital Signs: Yes Vital Signs: Vital Signs x48h Temp Pulse Resp BP Pulse Ox 12/02/23 08:00 36.9 C 64 17 133/67 H 95 Intake & Output: Intake & Output 11/29/23 11/30/23 12/01/23 12/02/23 23:59 23:59 23:59 23:59 Intake Total 3665.000 1668.207 024 8537 Output Total 2800 141 070 4357 Balance 106.291 2771.333 320 180 - Objective General Appearance: positive: No acute distress, Alert Eyes Bilateral: positive: PERRL, EOMI Neck: positive: No JVD, Trachea midline Respiratory: positive: No respiratory distress Abdomen: positive: Other (tight and distended. little discomfort. no hernias) Neurologic/Psychiatric: positive: Oriented x3 - Lab Results Fish Bones: 12/02/23 05:26 12/02/23 05:26 Other Labs: Lab Results x24hrs 12/02/23 12/02/23 Range/Units 05:26 05:26 WBC 6.2 (4.8-10.8) x10^3/uL RBC 4.41 L (4.70-6.10) 10^6/uL Hgb 13.3 L (14.0-18.0) g/dL Hct 41.4 L (42.0-52.0) % MCV 93.9 (80.0-94.0) fL MCH 30.2 (27.0-31.0) pg MCHC 32.1 (32.0-36.0) g/dL RDW 13.1 (12.0-15.0) % Plt Count 170 (130-450) 10^3/uL MPV 10.9 (7.4-11.4) fL Neut # (Auto) 4.6 (1.5-6.6) 10^3/uL Lymph # (Auto) 0.5 L (1.5-3.5) 10^3/uL [place] # (Auto) 0.9 (0.0-1.0) 10^3/uL Eos # (Auto) 0.2 (0.0-0.7) 10^3/uL Baso # (Auto) 0.1 (0.0-0.1) 10^3/uL Absolute Nucleated RBC 0.00 x10^3/uL Nucleated RBC % 0.0 /100WBC Sodium 136 (135-145) mmol/L Potassium 4.1 (3.5-4.5) mmol/L Chloride 100 L (101-111) mmol/L Carbon Dioxide 31 (21-32) mmol/L Anion Gap 5.0 L (6-13) BUN 18 (6-20) mg/dL Creatinine 1.1 (0.6-1.3) mg/dL Estimated GFR (MDRD) 65 L (>89) Glucose 133 H (74-104) mg/dL Calcium 9.3 (8.5-10.3) mg/dL - Diagnostic Imaging Diagnostic Imaging Results: positive: Read independently (agree with Dr Escobar. appears more of an ileus than a bowel obstruction.) Assessment/Plan - Problem List (1) Ileus Impression: agree with Dr Escobar. 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 agree with current care. consider iv erythromycin. if not improving over the weekend recommend picc line, tpn to start monday and consider transfer to higher level of care, ie fluoroscopy for small bowel follow through, gastroenterology currently does not have a surgical abdomen.
--- NOTE | 2023-12-02 14:19 | PROVIDER PROGRESS NOTE ---
Assessment/Plan - Problem List (1) Atrial fibrillation Assessment/Plan: (1) Atrial fibrillation Assessment/Plan: --Continue home atenolol. Per general surgery, he is okay for anticoagulation. Eliquis resumed. (2) Small bowel obstruction Assessment/Plan: --Replaced NGT this morning. He was evaluated by general surgery who recommended starting TPN if no improvement over the weekend and possible transfer to a higher level of care. (4) CAD (coronary artery disease) Assessment/Plan: --Continue atenolol and atorvastatin. (5) H/O aortic valve replacement Assessment/Plan: --Bioprosthetic aortic valve replacement. He can return to daily aspirin. - Current Meds Current Meds: Current Medications Generic Name Dose Route Start Last Admin Trade Name Freq PRN Reason Stop Dose Admin Acetaminophen 650 mg 11/27/23 13:32 11/30/23 03:17 Acetaminophen 325 Mg Tablet PO 650 mg Q4HR PRN Administration Pain or Fever > 38C (100.4F) Apixaban 5 mg 11/28/23 21:00 12/02/23 08:21 Apixaban 5 Mg Tablet PO 5 mg BID MARKY Administration Atenolol 25 mg 11/28/23 09:00 12/02/23 08:21 Atenolol 25 Mg Tablet PO 25 mg BID MARKY Administration Atorvastatin Calcium 20 mg 11/28/23 21:00 12/01/23 20:49 Atorvastatin 10 Mg Tablet PO 20 mg QPM MARKY Administration Hydromorphone HCl 0.5 mg 11/28/23 07:17 12/02/23 12:05 Hydromorphone 0.5 Mg/0.5 Ml Syringe IVP 0.5 mg Q2H PRN Administration Severe Pain (Level 7-10) Ceftriaxone Sodium 2 gm/ 100 mls @ 200 mls/hr 12/02/23 13:00 12/02/23 14:11 Sodium Chloride IV Infused 1000 MARKY Infusion Azithromycin 500 mg/ Sodium 250 mls @ 250 mls/hr 12/02/23 12:00 12/02/23 13:30 Chloride IV Infused DAILY MARKY Infusion Lactulose 10 gm 12/01/23 09:00 12/02/23 08:20 Lactulose 10 Gm /15 Ml Udc PO 10 gm DAILY MARKY Administration Levothyroxine Sodium 100 mcg 11/29/23 07:00 12/02/23 05:25 Levothyroxine 100 Mcg Tablet PO 100 mcg QDAC MARKY Administration Ondansetron HCl 4 mg 11/28/23 12:43 12/02/23 02:47 Ondansetron 4 Mg/2 Ml Vial IVP 4 mg Q4HR PRN Administration Nausea / Vomiting Pantoprazole Sodium 40 mg 11/28/23 17:00 12/02/23 05:25 Pantoprazole 40 Mg Tablet PO 40 mg QDAC MARKY Administration Phenol/Menthol 2 sprays 11/27/23 12:18 11/27/23 12:57 Phenol Throat [place] 177 Ml MM 2 sprays Q2HR PRN Administration Throat Pain Simethicone 80 mg 11/30/23 18:00 12/02/23 12:17 Simethicone Chew 80 Mg Tablet PO 80 mg 0900,1300,1800,2100 MARKY Administration Sodium Chloride 10 ml 11/27/23 08:53 12/02/23 12:06 Sodium Chloride Flush 0.9% 10 Ml Syringe IVP 10 ml PRN PRN Administration NEEDED PER PROVIDER ORDERS Sodium Chloride 10 ml 11/27/23 17:00 12/02/23 08:21 Sodium Chloride Flush 0.9% 10 Ml Syringe IVP 10 ml 0100,0900,1700 MARKY Administration Trazodone HCl 50 mg 11/30/23 21:00 12/01/23 20:49 Trazodone 50 Mg Tablet PO 50 mg QPM MARKY Administration - Lab Result Fish Bone Diagrams: 12/02/23 05:26 12/02/23 05:26 - Additional Planning My Orders: My Active Orders 12/01/23 Dinner Clear Liquid Diet [DIET] 12/02/23 09:20 NG Tube Care [RC] Q4HR 12/02/23 11:34 Miscellaenous Nursing Order [RC] ONCE 12/02/23 12:00 Azithromycin Inj [Zithromax Inj] 500 mg Sodium Chloride 0.9% [Normal Saline 0.9%] 250 ml IV DAILY 12/02/23 13:00 cefTRIAXone [Rocephin] 2 gm Sodium Chloride 0.9% Minibag [Normal Saline 0.9% Minibag] 100 ml IV 1000 12/03/23 05:00 BMP - BASIC METABOLIC PANEL [CHEM] DAILYLAB CBC [CBC - COMP BLD CT W/AUTO DIFF] [HEME] DAILYLAB Subjective - Subjective Patient Reports: Other (Reported a bout of vomiting.) Objective Vital Signs: Vital Signs - 24 hr 12/01/23 12/01/23 12/02/23 15:46 23:41 08:00 Temperature 37.0 C 36.9 C 36.9 C Heart Rate [ 55 L 63 64 Brachial] Respiratory 18 20 17 Rate Blood Pressure 146/77 H 139/75 H 133/67 H [Left Brachial artery] O2 Saturation 95 93 95 Oxygen O2 Source Room air I&O (Last 24 Hrs): Intake and Output Totals x24h 11/30/23 12/01/23 12/02/23 23:59 23:59 23:59 Intake Total 1668.722 266 5701 Output Total 575 536 3357 Balance 1568.333 320 280 Neuro: Alert Cardiovascular: Regular rate, Normal S1, Normal S2 Abdomen: Other (Patient had a distended and painful abdomen.) - Results Results: Laboratory Results WBC 6.2 x10^3/uL (4.8-10.8) 12/02/23 05:26 RBC 4.41 10^6/uL (4.70-6.10) L 12/02/23 05:26 Hgb 13.3 g/dL (14.0-18.0) L 12/02/23 05:26 Hct 41.4 % (42.0-52.0) L 12/02/23 05:26 MCV 93.9 fL (80.0-94.0) 12/02/23 05:26 MCH 30.2 pg (27.0-31.0) 12/02/23 05:26 MCHC 32.1 g/dL (32.0-36.0) 12/02/23 05:26 RDW 13.1 % (12.0-15.0) 12/02/23 05:26 Plt Count 170 10^3/uL (130-450) 12/02/23 05:26 MPV 10.9 fL (7.4-11.4) 12/02/23 05:26 Neut # (Auto) 4.6 10^3/uL (1.5-6.6) 12/02/23 05:26 Lymph # (Auto) 0.5 10^3/uL (1.5-3.5) L 12/02/23 05:26 [place] # (Auto) 0.9 10^3/uL (0.0-1.0) 12/02/23 05:26 Eos # (Auto) 0.2 10^3/uL (0.0-0.7) 12/02/23 05:26 Baso # (Auto) 0.1 10^3/uL (0.0-0.1) 12/02/23 05:26 Absolute Nucleated RBC 0.00 x10^3/uL 12/02/23 05:26 Nucleated RBC % 0.0 /100WBC 12/02/23 05:26 Sodium 136 mmol/L (135-145) 12/02/23 05:26 Potassium 4.1 mmol/L (3.5-4.5) 12/02/23 05:26 Chloride 100 mmol/L (101-111) L 12/02/23 05:26 Carbon Dioxide 31 mmol/L (21-32) 12/02/23 05:26 Anion Gap 5.0 (6-13) L 12/02/23 05:26 BUN 18 mg/dL (6-20) 12/02/23 05:26 Creatinine 1.1 mg/dL (0.6-1.3) 12/02/23 05:26 Estimated GFR (MDRD) 65 (>89) L 12/02/23 05:26 Glucose 133 mg/dL (74-104) H 12/02/23 05:26 Calcium 9.3 mg/dL (8.5-10.3) 12/02/23 05:26 Phosphorus 2.7 mg/dL (2.5-5.0) 11/28/23 04:21 Magnesium 2.1 mg/dL (1.7-2.3) 11/28/23 04:21 Total Bilirubin 1.0 mg/dL (0.2-1.0) 11/27/23 06:49 AST 26 IU/L (10-42) 11/27/23 06:49 ALT 16 IU/L (10-60) 11/27/23 06:49 Alkaline Phosphatase 109 IU/L (42-121) 11/27/23 06:49 Total Protein 7.7 g/dL (6.4-8.9) 11/27/23 06:49 Albumin 4.6 g/dL (3.2-5.5) 11/27/23 06:49 Globulin 3.1 g/dL (2.1-4.2) 11/27/23 06:49 Albumin/Globulin Ratio 1.5 (1.0-2.2) 11/27/23 06:49 Lipase 34 U/L (11-82) 11/27/23 06:49 Urine Color YELLOW 11/27/23 13:24 Urine Clarity CLEAR (CLEAR) 11/27/23 13:24 Urine pH 5.5 PH (5.0-7.5) 11/27/23 13:24 Ur Specific [place] 1.015 (1.002-1.030) 11/27/23 13:24 Urine Protein TRACE mg/dL (NEGATIVE) 11/27/23 13:24 Urine Glucose (UA) NEGATIVE mg/dL (NEGATIVE) 11/27/23 13:24 Urine Ketones TRACE mg/dL (NEGATIVE) 11/27/23 13:24 Urine Occult Blood NEGATIVE (NEGATIVE) 11/27/23 13:24 Urine Nitrite NEGATIVE (NEGATIVE) 11/27/23 13:24 Urine Bilirubin NEGATIVE (NEGATIVE) 11/27/23 13:24 Urine Urobilinogen 0.2 (NORMAL) E.U./dL (NORMAL) 11/27/23 13:24 Ur Leukocyte Esterase NEGATIVE (NEGATIVE) 11/27/23 13:24 Ur Microscopic Review NOT INDICATED 11/27/23 13:24
[2023-12-03 05:25] LABS: BASOPHILS % (AUTO) 0.9 %; EOSINOPHILS # (AUTO) 0.2 10^3/uL (0.0-0.7); EOSINOPHILS % (AUTO) 4.6 %; HCT - HEMATOCRIT 38.8 % (42.0-52.0); HGB - HEMOGLOBIN 12.3 g/dL (14.0-18.0); LYMPHOCYTES # (AUTO) 0.6 10^3/uL (1.5-3.5); LYMPHOCYTES % (AUTO) 13.5 %; MEAN CORPUSCULAR HEMOGLOBIN 29.6 pg (27.0-31.0); MEAN CORPUSCULAR HGB CONC 31.7 g/dL (32.0-36.0); MEAN CORPUSCULAR VOLUME 93.5 fL (80.0-94.0); MONOCYTES # (AUTO) 0.7 10^3/uL (0.0-1.0); MONOCYTES % (AUTO) 15.6 %; NEUTROPHILS # (AUTO) 2.8 10^3/uL (1.5-6.6); NEUTROPHILS % (AUTO) 64.9 %; PLT - PLATELET COUNT 173 10^3/uL (130-450); RED BLOOD COUNT 4.15 10^6/uL (4.70-6.10); RED CELL DISTRIBUTION WIDTH 13.3 % (12.0-15.0); WHITE BLOOD COUNT 4.4 x10^3/uL (4.8-10.8)
[2023-12-03 05:44] LABS: CALCIUM 8.8 mg/dL (8.5-10.3); POTASSIUM 3.7 mmol/L (3.5-4.5)
--- NOTE | 2023-12-03 09:27 | PROVIDER PROGRESS NOTE ---
Assessment/Plan - Problem List (1) Atrial fibrillation Assessment/Plan: (1) Atrial fibrillation Assessment/Plan: --Continue home atenolol. Per general surgery, he is okay for anticoagulation. Eliquis resumed. (2) Small bowel obstruction Assessment/Plan: --Replaced NGT this morning. He was evaluated by general surgery who recommended starting TPN if no improvement over the weekend and possible transfer to a higher level of care. --Significant amount of output overnight, however patient continues to consume liquid diet. He was eating a popsicle during my evaluation. --Repeat KUB this AM. (4) CAD (coronary artery disease) Assessment/Plan: --Continue atenolol and atorvastatin. (5) H/O aortic valve replacement Assessment/Plan: --Bioprosthetic aortic valve replacement. He can return to daily aspirin upon discharge. Dispo: No return of bowel function yet. Did pass some flatus yesterday but not consistent. He is quite frustrated at the lack of progress. I have explained the disease course and treatment plan to him several times. - Current Meds Current Meds: Current Medications Generic Name Dose Route Start Last Admin Trade Name Freq PRN Reason Stop Dose Admin Acetaminophen 650 mg 11/27/23 13:32 11/30/23 03:17 Acetaminophen 325 Mg Tablet PO 650 mg Q4HR PRN Administration Pain or Fever > 38C (100.4F) Apixaban 5 mg 11/28/23 21:00 12/03/23 09:11 Apixaban 5 Mg Tablet PO 5 mg BID MARKY Administration Atenolol 25 mg 11/28/23 09:00 12/03/23 09:11 Atenolol 25 Mg Tablet PO 25 mg BID MARKY Administration Atorvastatin Calcium 20 mg 11/28/23 21:00 12/02/23 21:11 Atorvastatin 10 Mg Tablet PO 20 mg QPM MARKY Administration Hydromorphone HCl 0.5 mg 11/28/23 07:17 12/03/23 07:43 Hydromorphone 0.5 Mg/0.5 Ml Syringe IVP 0.5 mg Q2H PRN Administration Severe Pain (Level 7-10) Ceftriaxone Sodium 2 gm/ 100 mls @ 200 mls/hr 12/02/23 13:00 12/02/23 14:11 Sodium Chloride IV Infused 1000 MARKY Infusion Azithromycin 500 mg/ Sodium 250 mls @ 250 mls/hr 12/02/23 12:00 12/03/23 09:08 Chloride IV 250 mls/hr DAILY MARKY Administration Lactulose 10 gm 12/01/23 09:00 12/03/23 09:06 Lactulose 10 Gm /15 Ml Udc PO 10 gm DAILY MARKY Administration Levothyroxine Sodium 100 mcg 11/29/23 07:00 12/03/23 05:09 Levothyroxine 100 Mcg Tablet PO 100 mcg QDAC MARKY Administration Ondansetron HCl 4 mg 11/28/23 12:43 12/02/23 02:47 Ondansetron 4 Mg/2 Ml Vial IVP 4 mg Q4HR PRN Administration Nausea / Vomiting Pantoprazole Sodium 40 mg 11/28/23 17:00 12/03/23 05:09 Pantoprazole 40 Mg Tablet PO 40 mg QDAC MARKY Administration Phenol/Menthol 2 sprays 11/27/23 12:18 12/02/23 21:13 Phenol Throat [place] 177 Ml MM 2 sprays Q2HR PRN Administration Throat Pain Simethicone 80 mg 11/30/23 18:00 12/03/23 09:11 Simethicone Chew 80 Mg Tablet PO 80 mg 0900,1300,1800,2100 MARKY Administration Sodium Chloride 10 ml 11/27/23 08:53 12/02/23 21:11 Sodium Chloride Flush 0.9% 10 Ml Syringe IVP 10 ml PRN PRN Administration NEEDED PER PROVIDER ORDERS Sodium Chloride 10 ml 11/27/23 17:00 12/03/23 09:11 Sodium Chloride Flush 0.9% 10 Ml Syringe IVP 10 ml 0100,0900,1700 MARKY Administration Trazodone HCl 50 mg 11/30/23 21:00 12/02/23 21:11 Trazodone 50 Mg Tablet PO 50 mg QPM MARKY Administration - Lab Result Fish Bone Diagrams: 12/03/23 05:04 12/03/23 05:04 - Additional Planning My Orders: My Active Orders 12/02/23 09:20 NG Tube Care [RC] Q4HR 12/02/23 11:34 Miscellaenous Nursing Order [RC] ONCE 12/02/23 12:00 Azithromycin Inj [Zithromax Inj] 500 mg Sodium Chloride 0.9% [Normal Saline 0.9%] 250 ml IV DAILY 12/02/23 13:00 cefTRIAXone [Rocephin] 2 gm Sodium Chloride 0.9% Minibag [Normal Saline 0.9% Minibag] 100 ml IV 1000 12/03/23 08:41 NPO except Meds [DIET] 12/03/23 09:00 Dextrose 5%-Lactated Ringers [D5lr] 1,000 ml IV 100 mls/hr Subjective - Subjective Patient Reports: Other (Frustered at lack of progress. He does continue to consume liquids. I have discussed the plan with him several times. He is having quite a bit of output.) Objective Vital Signs: Vital Signs - 24 hr 12/02/23 12/03/23 12/03/23 15:26 00:03 08:23 Temperature 36.8 C 36.8 C 36.7 C Heart Rate [ 61 63 70 Brachial] Respiratory 18 18 20 Rate Blood Pressure 104/58 L [Left Brachial artery] Blood Pressure 137/66 H 150/84 H [Right Brachial artery] O2 Saturation 90 L 92 92 Oxygen O2 Source Room air I&O (Last 24 Hrs): Intake and Output Totals x24h 12/01/23 12/02/23 12/03/23 23:59 23:59 23:59 Intake Total 470 1919 990 Output Total 150 3000 900 Balance 320 -1081 90 General: Alert, Oriented x3, Cooperative, No acute distress Cardiovascular: Regular rate, Normal S1, Normal S2, No murmurs Respiratory: Chest non-tender, No respiratory distress, Breath sounds nml Abdomen: Normal bowel sounds, Soft, No tenderness, No hepatospenomegaly, No masses - Results Results: Laboratory Results WBC 4.4 x10^3/uL (4.8-10.8) L 12/03/23 05:04 RBC 4.15 10^6/uL (4.70-6.10) L 12/03/23 05:04 Hgb 12.3 g/dL (14.0-18.0) L 12/03/23 05:04 Hct 38.8 % (42.0-52.0) L 12/03/23 05:04 MCV 93.5 fL (80.0-94.0) 12/03/23 05:04 MCH 29.6 pg (27.0-31.0) 12/03/23 05:04 MCHC 31.7 g/dL (32.0-36.0) L 12/03/23 05:04 RDW 13.3 % (12.0-15.0) 12/03/23 05:04 Plt Count 173 10^3/uL (130-450) 12/03/23 05:04 MPV 11.0 fL (7.4-11.4) 12/03/23 05:04 Neut # (Auto) 2.8 10^3/uL (1.5-6.6) 12/03/23 05:04 Lymph # (Auto) 0.6 10^3/uL (1.5-3.5) L 12/03/23 05:04 [place] # (Auto) 0.7 10^3/uL (0.0-1.0) 12/03/23 05:04 Eos # (Auto) 0.2 10^3/uL (0.0-0.7) 12/03/23 05:04 Baso # (Auto) 0.0 10^3/uL (0.0-0.1) 12/03/23 05:04 Absolute Nucleated RBC 0.00 x10^3/uL 12/03/23 05:04 Nucleated RBC % 0.0 /100WBC 12/03/23 05:04 Sodium 137 mmol/L (135-145) 12/03/23 05:04 Potassium 3.7 mmol/L (3.5-4.5) 12/03/23 05:04 Chloride 103 mmol/L (101-111) 12/03/23 05:04 Carbon Dioxide 26 mmol/L (21-32) 12/03/23 05:04 Anion Gap 8.0 (6-13) 12/03/23 05:04 BUN 21 mg/dL (6-20) H 12/03/23 05:04 Creatinine 1.0 mg/dL (0.6-1.3) 12/03/23 05:04 Estimated GFR (MDRD) 72 (>89) L 12/03/23 05:04 Glucose 119 mg/dL (74-104) H 12/03/23 05:04 Calcium 8.8 mg/dL (8.5-10.3) 12/03/23 05:04 Phosphorus 2.7 mg/dL (2.5-5.0) 11/28/23 04:21 Magnesium 2.1 mg/dL (1.7-2.3) 11/28/23 04:21 Total Bilirubin 1.0 mg/dL (0.2-1.0) 11/27/23 06:49 AST 26 IU/L (10-42) 11/27/23 06:49 ALT 16 IU/L (10-60) 11/27/23 06:49 Alkaline Phosphatase 109 IU/L (42-121) 11/27/23 06:49 Total Protein 7.7 g/dL (6.4-8.9) 11/27/23 06:49 Albumin 4.6 g/dL (3.2-5.5) 11/27/23 06:49 Globulin 3.1 g/dL (2.1-4.2) 11/27/23 06:49 Albumin/Globulin Ratio 1.5 (1.0-2.2) 11/27/23 06:49 Lipase 34 U/L (11-82) 11/27/23 06:49 Urine Color YELLOW 11/27/23 13:24 Urine Clarity CLEAR (CLEAR) 11/27/23 13:24 Urine pH 5.5 PH (5.0-7.5) 11/27/23 13:24 Ur Specific [place] 1.015 (1.002-1.030) 11/27/23 13:24 Urine Protein TRACE mg/dL (NEGATIVE) 11/27/23 13:24 Urine Glucose (UA) NEGATIVE mg/dL (NEGATIVE) 11/27/23 13:24 Urine Ketones TRACE mg/dL (NEGATIVE) 11/27/23 13:24 Urine Occult Blood NEGATIVE (NEGATIVE) 11/27/23 13:24 Urine Nitrite NEGATIVE (NEGATIVE) 11/27/23 13:24 Urine Bilirubin NEGATIVE (NEGATIVE) 11/27/23 13:24 Urine Urobilinogen 0.2 (NORMAL) E.U./dL (NORMAL) 11/27/23 13:24 Ur Leukocyte Esterase NEGATIVE (NEGATIVE) 11/27/23 13:24 Ur Microscopic Review NOT INDICATED 11/27/23 13:24
[2023-12-03] MEDS: DEXTROSE 5%-LACTATED RINGERS 1,000 ML IV SCH (09:37)
--- NOTE | 2023-12-03 10:16 | XRAY Report ---
PROCEDURE: Abdomen 1 V INDICATIONS: SBO, interval change after NGT placed 24 hours ago TECHNIQUE: 1 view of the abdomen were acquired. COMPARISON: 12/01/2023 FINDINGS: Surgical changes and devices: Nasogastric tube is partially imaged Bowel: Small bowel is persistently dilated measuring up to 3.7 cm with enteric contrast within the sm all bowel Soft tissues: No masses; visualized solid organ contours appear normal in size. No suspicious abdom inal calcifications. Bones: No suspicious bony abnormalities. IMPRESSION: Persistent small bowel obstruction. Reviewed by: Berto Mims MD on 12/03/2023 9:14 AM [facility] Approved by: Berto Mims MD on 12/03/2023 9:14 AM [facility] Station ID: [id number]
--- NOTE | 2023-12-03 12:55 | PROVIDER PROGRESS NOTE ---
Subjective - Subjective Pt reports feeling: Improved (passing gas over night and this am. little to no abdominal pain) Objective - Vital Signs/Intake & Output Vital Signs: Vital Signs x48h Temp Pulse Resp BP Pulse Ox 12/03/23 08:23 36.7 C 70 20 150/84 H 92 Intake & Output: Intake & Output 11/30/23 12/01/23 12/02/23 12/03/23 23:59 23:59 23:59 23:59 Intake Total 1668.054 100 8947 1380 Output Total 775 887 6092 1950 Balance 1568.333 667 -0511 -618 - Objective General Appearance: positive: No acute distress, Alert Eyes Bilateral: positive: PERRL, EOMI Respiratory: positive: No respiratory distress Abdomen: positive: Other (still with moderate distension. ngt thinner however t aking clears) Neurologic/Psychiatric: positive: Oriented x3 - Lab Results Fish Bones: 12/03/23 05:04 12/03/23 05:04 Other Labs: Lab Results x24hrs 12/03/23 12/03/23 Range/Units 05:04 05:04 WBC 4.4 L (4.8-10.8) x10^3/uL RBC 4.15 L (4.70-6.10) 10^6/uL Hgb 12.3 L (14.0-18.0) g/dL Hct 38.8 L (42.0-52.0) % MCV 93.5 (80.0-94.0) fL MCH 29.6 (27.0-31.0) pg MCHC 31.7 L (32.0-36.0) g/dL RDW 13.3 (12.0-15.0) % Plt Count 173 (130-450) 10^3/uL MPV 11.0 (7.4-11.4) fL Neut # (Auto) 2.8 (1.5-6.6) 10^3/uL Lymph # (Auto) 0.6 L (1.5-3.5) 10^3/uL [place] # (Auto) 0.7 (0.0-1.0) 10^3/uL Eos # (Auto) 0.2 (0.0-0.7) 10^3/uL Baso # (Auto) 0.0 (0.0-0.1) 10^3/uL Absolute Nucleated RBC 0.00 x10^3/uL Nucleated RBC % 0.0 /100WBC Sodium 137 (135-145) mmol/L Potassium 3.7 (3.5-4.5) mmol/L Chloride 103 (101-111) mmol/L Carbon Dioxide 26 (21-32) mmol/L Anion Gap 8.0 (6-13) BUN 21 H (6-20) mg/dL Creatinine 1.0 (0.6-1.3) mg/dL Estimated GFR (MDRD) 72 L (>89) Glucose 119 H (74-104) mg/dL Calcium 8.8 (8.5-10.3) mg/dL - Diagnostic Imaging Diagnostic Imaging Results: positive: Read independently (gas in rectum on today s film) Assessment/Plan - Problem List (1) Ileus Impression: 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 recommend ngt until abdomen less distended. he has had care at [facility] and [facility]. he states his tobacco sizer is there and he had a colonoscopy 2 years ago. He has mentioned earlier he might leave the hospital prior to d/c ie [facility]. I have asked him if he does leave that he go to [facility] if he is not doing well. I believe he needs to be seen by gi and at a hospital that can offer a higher level of care. he certainly does not have a surgical abdomen at this time.
[2023-12-03] MEDS: CARBOXYMETHYLCELLULOSE OPHTH DROPS EACHEYE PRN (19:49)
[2023-12-04 05:56] LABS: EOSINOPHILS # (AUTO) 0.3 10^3/uL (0.0-0.7); EOSINOPHILS % (AUTO) 6.2 %; HCT - HEMATOCRIT 40.4 % (42.0-52.0); HGB - HEMOGLOBIN 13.2 g/dL (14.0-18.0); LYMPHOCYTES # (AUTO) 0.9 10^3/uL (1.5-3.5); LYMPHOCYTES % (AUTO) 20.3 %; MEAN CORPUSCULAR HEMOGLOBIN 30.6 pg (27.0-31.0); MEAN CORPUSCULAR HGB CONC 32.7 g/dL (32.0-36.0); MEAN CORPUSCULAR VOLUME 93.5 fL (80.0-94.0); MEAN PLATELET VOLUME 10.6 fL (7.4-11.4); MONOCYTES # (AUTO) 0.7 10^3/uL (0.0-1.0); MONOCYTES % (AUTO) 16.2 %; NEUTROPHILS # (AUTO) 2.3 10^3/uL (1.5-6.6); NEUTROPHILS % (AUTO) 55.6 %; PLT - PLATELET COUNT 194 10^3/uL (130-450); RED BLOOD COUNT 4.32 10^6/uL (4.70-6.10); RED CELL DISTRIBUTION WIDTH 13.2 % (12.0-15.0); WHITE BLOOD COUNT 4.2 x10^3/uL (4.8-10.8)
[2023-12-04 06:15] LABS: POTASSIUM 3.4 mmol/L (3.5-4.5)
--- NOTE | 2023-12-04 10:43 | XRAY Report ---
PROCEDURE: Abdomen 1 V INDICATIONS: SBO interval follow up. TECHNIQUE: One view of the abdomen acquired. COMPARISON: X-ray 12/03/2023, 12/01/2023, CT 11/26/2023. FINDINGS: Surgical changes and devices: None. Bowel: Decreased distention of small bowel. Intraluminal contrast within the large bowel. Soft tissues: No suspicious abdominal calcifications. Visualized solid organ contours appear normal in size. Bones: No suspicious bony lesions. IMPRESSION: Interval passage of intraluminal contrast into the large bowel, with decreased distention of the smal l bowel. Findings suggest resolving small bowel obstruction. Reviewed by: Thomas Montano MD on 12/04/2023 10:41 AM PDT Approved by: Thomas Montano MD on 12/04/2023 10:41 AM PDT Station ID: [id number]
[2023-12-04] MEDS: SALIVA STIMULANT SPRAY 44.3 ML BOTTLE PO PRN (11:41)
[2023-12-04] MEDS: POTASSIUM CHLOR 10 MEQ/100 ML 10 MEQ/100 ML BAG IV SCH (11:41)
--- NOTE | 2023-12-04 11:52 | PROVIDER PROGRESS NOTE ---
Subjective - General Admit Date: 11/27/23 - Review of Systems Drain Type: NGT Drain Output Description: gastric Approximate mls Output: 2200 (700cc clear liquids intake) General: positive: No symptoms Pulmonary: positive: No symptoms Cardiovascular: positive: No symptoms Gastrointestinal: positive: Flatus (increasing, per patient). negative: Abdominal pain Skin: positive: No symptoms Psychiatric: positive: No symptoms - Other Other Information/Narrative: Pain controlled and less than yesterday. NG in place with high output, but taking clears. +flatus, no BM. Minimal ambulation. +void. Objective - Patient Data Vital Signs: Vital Signs x48h Temp Pulse Resp BP Pulse Ox 12/04/23 07:48 36.6 C 53 L 16 122/58 L 96 Intake & Output: Intake and Output Totals x24h 12/02/23 12/03/23 12/04/23 23:59 23:59 23:59 Intake Total 1919 2831.667 1053.333 Output Total 3000 3150 400 Balance -1081 -318.333 653.333 - Lab Results Lab Results: 12/04/23 05:46 12/04/23 05:46 Other Lab Results: Lab Results x24hrs 12/04/23 12/04/23 Range/Units 05:46 05:46 WBC 4.2 L (4.8-10.8) x10^3/uL RBC 4.32 L (4.70-6.10) 10^6/uL Hgb 13.2 L (14.0-18.0) g/dL Hct 40.4 L (42.0-52.0) % MCV 93.5 (80.0-94.0) fL MCH 30.6 (27.0-31.0) pg MCHC 32.7 (32.0-36.0) g/dL RDW 13.2 (12.0-15.0) % Plt Count 194 (130-450) 10^3/uL MPV 10.6 (7.4-11.4) fL Neut # (Auto) 2.3 (1.5-6.6) 10^3/uL Lymph # (Auto) 0.9 L (1.5-3.5) 10^3/uL [place] # (Auto) 0.7 (0.0-1.0) 10^3/uL Eos # (Auto) 0.3 (0.0-0.7) 10^3/uL Baso # (Auto) 0.0 (0.0-0.1) 10^3/uL Absolute Nucleated RBC 0.00 x10^3/uL Nucleated RBC % 0.0 /100WBC Sodium 140 (135-145) mmol/L Potassium 3.4 L (3.5-4.5) mmol/L Chloride 104 (101-111) mmol/L Carbon Dioxide 32 (21-32) mmol/L Anion Gap 4.0 L (6-13) BUN 16 (6-20) mg/dL Creatinine 1.0 (0.6-1.3) mg/dL Estimated GFR (MDRD) 72 L (>89) Glucose 126 H (74-104) mg/dL Calcium 9.0 (8.5-10.3) mg/dL Magnesium 2.0 (1.7-2.3) mg/dL - Current Medications Current Medications: Current Medications Generic Name Dose Route Start Last Admin Trade Name Freq PRN Reason Stop Dose Admin Acetaminophen 650 mg 11/27/23 13:32 11/30/23 03:17 Acetaminophen 325 Mg Tablet PO 650 mg Q4HR PRN Administration Pain or Fever > 38C (100.4F) Apixaban 5 mg 11/28/23 21:00 12/04/23 09:38 Apixaban 5 Mg Tablet PO 5 mg BID MARKY Administration Atenolol 25 mg 11/28/23 09:00 12/04/23 09:38 Atenolol 25 Mg Tablet PO 25 mg BID MARKY Administration Atorvastatin Calcium 20 mg 11/28/23 21:00 12/03/23 21:17 Atorvastatin 10 Mg Tablet PO 20 mg QPM MARKY Administration Carboxymethylcellulose 1 drops 12/03/23 18:13 12/03/23 19:49 Carboxymethylcellulose Ophth Drops EACHEYE 1 drops PRN PRN Administration Dry Eye Hydromorphone HCl 0.5 mg 11/28/23 07:17 12/04/23 08:36 Hydromorphone 0.5 Mg/0.5 Ml Syringe IVP 0.5 mg Q2H PRN Administration Severe Pain (Level 7-10) Ceftriaxone Sodium 2 gm/ 100 mls @ 200 mls/hr 12/02/23 13:00 12/04/23 11:42 Sodium Chloride IV Infused 1000 MARKY Infusion Azithromycin 500 mg/ Sodium 250 mls @ 250 mls/hr 12/02/23 12:00 12/04/23 11:41 Chloride IV Infused DAILY MARKY Infusion Dextrose/Lactated Ringer's 1,000 mls @ 100 mls/hr 12/03/23 09:00 12/04/23 05:31 D5lr IV 100 mls/hr .Q10H MARKY Administration Potassium Chloride 10 meq in 100 mls @ 100 mls/hr 12/04/23 10:00 12/04/23 11:41 Potassium Chloride IV 12/04/23 11:59 100 mls/hr Q1H MARKY Administration Levothyroxine Sodium 100 mcg 11/29/23 07:00 12/04/23 06:22 Levothyroxine 100 Mcg Tablet PO 100 mcg QDAC MARKY Administration Ondansetron HCl 4 mg 11/28/23 12:43 12/02/23 02:47 Ondansetron 4 Mg/2 Ml Vial IVP 4 mg Q4HR PRN Administration Nausea / Vomiting Pantoprazole Sodium 40 mg 11/28/23 17:00 12/04/23 06:22 Pantoprazole 40 Mg Tablet PO 40 mg QDAC MARKY Administration Phenol/Menthol 2 sprays 11/27/23 12:18 12/04/23 00:03 Phenol Throat [place] 177 Ml MM 2 sprays Q2HR PRN Administration Throat Pain Saliva Substitute 2 sprays 12/04/23 10:41 12/04/23 11:41 Saliva Stimulant [place] 44.3 Ml Bottle PO 2 sprays Q4H PRN Administration Mouth Sore Pain Sodium Chloride 10 ml 11/27/23 08:53 12/04/23 05:17 Sodium Chloride Flush 0.9% 10 Ml Syringe IVP 10 ml PRN PRN Administration NEEDED PER PROVIDER ORDERS Sodium Chloride 10 ml 11/27/23 17:00 12/04/23 00:06 Sodium Chloride Flush 0.9% 10 Ml Syringe IVP 10 ml 0100,0900,1700 MARKY Administration Trazodone HCl 50 mg 11/30/23 21:00 12/03/23 21:17 Trazodone 50 Mg Tablet PO 50 mg QPM MARKY Administration - Physical Exam Comments/Other: GEN: No acute distress, alert and oriented HEENT: NG in place with 40mL dark green fluid out since "NOC" CV: RRR PULM: Nonlabored, on room air ABD: soft, non tender, with moderate distension, no rebound or guarding EXT: no clubbing, cyanosis, or edema Impression/Plan - Problem List Problem List: 78 y/o M with SBO vs ileus vs constipation - patient has not been out of bed much, except to go to the bathroom, per his report - increased flatus today but no BM for 10 days. - +void - non sugical abdomen on exam - tolerating clears, NG in place. I discussed clamping NG with the primary team - after reviewing the patient's CT and multiple XR studies since admission, he has a moderate stool burden in the colon and fecalization of the distal small bowel. With a history of normal CE 2 years ago and no significant findings other than slow transit time on imaging, I suspect constipation/ileus. Consider increasing bowel regimen with enema x2 today, and adding miralax if able to tolerate clears from above.
[2023-12-04] MEDS: MINERAL OIL ENEMA 133 ML BOTTLE RC SCH (14:13)
--- NOTE | 2023-12-04 15:51 | PROVIDER PROGRESS NOTE ---
Assessment/Plan - Problem List (1) Atrial fibrillation Assessment/Plan: (1) Atrial fibrillation Assessment/Plan: --Continue home atenolol. Per general surgery, he is okay for anticoagulation. Eliquis resumed. (2) Small bowel obstruction Assessment/Plan: --NGT clamped and will check residuals per general surgery recommendations. --Have added on a [place] enema x2 today. --Goal is to promote a bowel movement and then add Miralax. --He has been encouraged to ambulate TID. (4) CAD (coronary artery disease) Assessment/Plan: --Continue atenolol and atorvastatin. (5) H/O aortic valve replacement Assessment/Plan: --Bioprosthetic aortic valve replacement. He can return to daily aspirin upon discharge. - Current Meds Current Meds: Current Medications Generic Name Dose Route Start Last Admin Trade Name Freq PRN Reason Stop Dose Admin Acetaminophen 650 mg 11/27/23 13:32 12/04/23 13:46 Acetaminophen 325 Mg Tablet PO 650 mg Q4HR PRN Administration Pain or Fever > 38C (100.4F) Apixaban 5 mg 11/28/23 21:00 12/04/23 09:38 Apixaban 5 Mg Tablet PO 5 mg BID MARKY Administration Atenolol 25 mg 11/28/23 09:00 12/04/23 09:38 Atenolol 25 Mg Tablet PO 25 mg BID MARKY Administration Atorvastatin Calcium 20 mg 11/28/23 21:00 12/03/23 21:17 Atorvastatin 10 Mg Tablet PO 20 mg QPM MARKY Administration Carboxymethylcellulose 1 drops 12/03/23 18:13 12/03/23 19:49 Carboxymethylcellulose Ophth Drops EACHEYE 1 drops PRN PRN Administration Dry Eye Hydromorphone HCl 0.5 mg 11/28/23 07:17 12/04/23 14:13 Hydromorphone 0.5 Mg/0.5 Ml Syringe IVP 0.5 mg Q2H PRN Administration Severe Pain (Level 7-10) Ceftriaxone Sodium 2 gm/ 100 mls @ 200 mls/hr 12/02/23 13:00 12/04/23 11:42 Sodium Chloride IV Infused 1000 MARKY Infusion Azithromycin 500 mg/ Sodium 250 mls @ 250 mls/hr 12/02/23 12:00 12/04/23 11:41 Chloride IV Infused DAILY MARKY Infusion Dextrose/Lactated Ringer's 1,000 mls @ 100 mls/hr 12/03/23 09:00 12/04/23 15:27 D5lr IV 100 mls/hr .Q10H MARKY Infusion Levothyroxine Sodium 100 mcg 11/29/23 07:00 12/04/23 06:22 Levothyroxine 100 Mcg Tablet PO 100 mcg QDAC MARKY Administration Mineral Oil 133 ml 12/04/23 13:00 12/04/23 14:13 Mineral Oil Enema 133 Ml Bottle RC 12/06/23 12:59 133 ml BID MARKY Administration Ondansetron HCl 4 mg 11/28/23 12:43 12/02/23 02:47 Ondansetron 4 Mg/2 Ml Vial IVP 4 mg Q4HR PRN Administration Nausea / Vomiting Pantoprazole Sodium 40 mg 11/28/23 17:00 12/04/23 06:22 Pantoprazole 40 Mg Tablet PO 40 mg QDAC MARKY Administration Phenol/Menthol 2 sprays 11/27/23 12:18 12/04/23 00:03 Phenol Throat [place] 177 Ml MM 2 sprays Q2HR PRN Administration Throat Pain Saliva Substitute 2 sprays 12/04/23 10:41 12/04/23 11:41 Saliva Stimulant [place] 44.3 Ml Bottle PO 2 sprays Q4H PRN Administration Mouth Sore Pain Sodium Chloride 10 ml 11/27/23 08:53 12/04/23 05:17 Sodium Chloride Flush 0.9% 10 Ml Syringe IVP 10 ml PRN PRN Administration NEEDED PER PROVIDER ORDERS Sodium Chloride 10 ml 11/27/23 17:00 12/04/23 00:06 Sodium Chloride Flush 0.9% 10 Ml Syringe IVP 10 ml 0100,0900,1700 MARKY Administration Trazodone HCl 50 mg 11/30/23 21:00 12/03/23 21:17 Trazodone 50 Mg Tablet PO 50 mg QPM MARKY Administration - Lab Result Fish Bone Diagrams: 12/04/23 05:46 12/04/23 05:46 - Additional Planning My Orders: My Active Orders 12/04/23 10:41 Saliva Stimulant [place] [Biotene Moisturizing Mouth [place]] 2 sprays PO Q4H PRN 12/04/23 Lunch Clear Liquid Diet [DIET] 12/04/23 13:00 Mineral Oil [Mineral Oil Enema] 133 ml RC BID 12/04/23 15:09 Daily Weight [RC] DAILY Message to Nursing [RC] QSHIFT 12/04/23 19:00 Fat Emulsion 20% [Intralipid 20%] 250 ml IV 190 Multivitamin [Infuvite] 10 ml Trace Elements [Tralement Vial] 1 ml Ppn (Clinimix E 4.25/5) [Clinimix E 4.25%-5% Solution] 2,000 ml IV 1900 12/05/23 05:00 BMP - BASIC METABOLIC PANEL [CHEM] DAILYLAB CBC [CBC - COMP BLD CT W/AUTO DIFF] [HEME] DAILYLAB COMPREHENSIVE METABOLIC PANEL [CHEM] Routine MAGNESIUM [CHEM] Routine PHOSPHORUS [CHEM] Routine PREALBUMIN [CHEM] Routine TRIGLYCERIDES [CHEM] Routine 12/06/23 05:00 BMP - BASIC METABOLIC PANEL [CHEM] DAILYLAB CBC [CBC - COMP BLD CT W/AUTO DIFF] [HEME] DAILYLAB 12/07/23 05:00 BMP - BASIC METABOLIC PANEL [CHEM] DAILYLAB CBC [CBC - COMP BLD CT W/AUTO DIFF] [HEME] DAILYLAB COMPREHENSIVE METABOLIC PANEL [CHEM] Routine MAGNESIUM [CHEM] Routine PHOSPHORUS [CHEM] Routine PREALBUMIN [CHEM] Routine TRIGLYCERIDES [CHEM] Routine 12/08/23 05:00 BMP - BASIC METABOLIC PANEL [CHEM] DAILYLAB CBC [CBC - COMP BLD CT W/AUTO DIFF] [HEME] DAILYLAB 12/09/23 05:00 COMPREHENSIVE METABOLIC PANEL [CHEM] Routine MAGNESIUM [CHEM] Routine PHOSPHORUS [CHEM] Routine PREALBUMIN [CHEM] Routine TRIGLYCERIDES [CHEM] Routine 12/12/23 05:00 COMPREHENSIVE METABOLIC PANEL [CHEM] Routine MAGNESIUM [CHEM] Routine PHOSPHORUS [CHEM] Routine PREALBUMIN [CHEM] Routine TRIGLYCERIDES [CHEM] Routine Subjective - Subjective Patient Reports: Other (Small amount of flatus overnight. No BM.) Objective Vital Signs: Vital Signs - 24 hr 12/03/23 12/04/23 12/04/23 23:44 00:09 07:48 Temperature 36.8 C 36.6 C Heart Rate [ 61 53 L Brachial] Respiratory 18 16 16 Rate Blood Pressure 126/58 L 122/58 L [Left Brachial artery] O2 Saturation 91 L 96 96 Oxygen O2 Source Room air I&O (Last 24 Hrs): Intake and Output Totals x24h 04/06/24 04/07/24 04/08/24 23:59 23:59 23:59 Intake Total 1919 2831.667 2746.666 Output Total 3000 3150 1300 Balance -1081 -454.128 2926.666 General: Alert, Oriented x3, Cooperative, No acute distress Cardiovascular: Regular rate, Normal S1, Normal S2, No murmurs Respiratory: Chest non-tender, No respiratory distress, Breath sounds nml Abdomen: Soft, No tenderness - Results Results: Laboratory Results WBC 4.2 x10^3/uL (4.8-10.8) L 12/04/23 05:46 RBC 4.32 10^6/uL (4.70-6.10) L 12/04/23 05:46 Hgb 13.2 g/dL (14.0-18.0) L 12/04/23 05:46 Hct 40.4 % (42.0-52.0) L 12/04/23 05:46 MCV 93.5 fL (80.0-94.0) 12/04/23 05:46 MCH 30.6 pg (27.0-31.0) 12/04/23 05:46 MCHC 32.7 g/dL (32.0-36.0) 12/04/23 05:46 RDW 13.2 % (12.0-15.0) 12/04/23 05:46 Plt Count 194 10^3/uL (130-450) 12/04/23 05:46 MPV 10.6 fL (7.4-11.4) 12/04/23 05:46 Neut # (Auto) 2.3 10^3/uL (1.5-6.6) 12/04/23 05:46 Lymph # (Auto) 0.9 10^3/uL (1.5-3.5) L 12/04/23 05:46 [place] # (Auto) 0.7 10^3/uL (0.0-1.0) 12/04/23 05:46 Eos # (Auto) 0.3 10^3/uL (0.0-0.7) 12/04/23 05:46 Baso # (Auto) 0.0 10^3/uL (0.0-0.1) 12/04/23 05:46 Absolute Nucleated RBC 0.00 x10^3/uL 12/04/23 05:46 Nucleated RBC % 0.0 /100WBC 12/04/23 05:46 Sodium 140 mmol/L (135-145) 12/04/23 05:46 Potassium 3.4 mmol/L (3.5-4.5) L 12/04/23 05:46 Chloride 104 mmol/L (101-111) 12/04/23 05:46 Carbon Dioxide 32 mmol/L (21-32) 12/04/23 05:46 Anion Gap 4.0 (6-13) L 12/04/23 05:46 BUN 16 mg/dL (6-20) 12/04/23 05:46 Creatinine 1.0 mg/dL (0.6-1.3) 12/04/23 05:46 Estimated GFR (MDRD) 72 (>89) L 12/04/23 05:46 Glucose 126 mg/dL (74-104) H 12/04/23 05:46 Calcium 9.0 mg/dL (8.5-10.3) 12/04/23 05:46 Phosphorus 2.8 mg/dL (2.5-5.0) 12/04/23 05:46 Magnesium 2.0 mg/dL (1.7-2.3) 12/04/23 05:46 Total Bilirubin 1.0 mg/dL (0.2-1.0) 11/27/23 06:49 AST 26 IU/L (10-42) 11/27/23 06:49 ALT 16 IU/L (10-60) 11/27/23 06:49 Alkaline Phosphatase 109 IU/L (42-121) 11/27/23 06:49 Total Protein 7.7 g/dL (6.4-8.9) 11/27/23 06:49 Albumin 4.6 g/dL (3.2-5.5) 11/27/23 06:49 Globulin 3.1 g/dL (2.1-4.2) 11/27/23 06:49 Albumin/Globulin Ratio 1.5 (1.0-2.2) 11/27/23 06:49 Lipase 34 U/L (11-82) 11/27/23 06:49 Urine Color YELLOW 11/27/23 13:24 Urine Clarity CLEAR (CLEAR) 11/27/23 13:24 Urine pH 5.5 PH (5.0-7.5) 11/27/23 13:24 Ur Specific [place] 1.015 (1.002-1.030) 11/27/23 13:24 Urine Protein TRACE mg/dL (NEGATIVE) 11/27/23 13:24 Urine Glucose (UA) NEGATIVE mg/dL (NEGATIVE) 11/27/23 13:24 Urine Ketones TRACE mg/dL (NEGATIVE) 11/27/23 13:24 Urine Occult Blood NEGATIVE (NEGATIVE) 11/27/23 13:24 Urine Nitrite NEGATIVE (NEGATIVE) 11/27/23 13:24 Urine Bilirubin NEGATIVE (NEGATIVE) 11/27/23 13:24 Urine Urobilinogen 0.2 (NORMAL) E.U./dL (NORMAL) 11/27/23 13:24 Ur Leukocyte Esterase NEGATIVE (NEGATIVE) 11/27/23 13:24 Ur Microscopic Review NOT INDICATED 11/27/23 13:24
[2023-12-04] MEDS: FAT EMULSION 20% 250 ML IV SCH (19:15)
[2023-12-04] MEDS: PPN (CLINIMIX E 4.25/5) 2,000 ML with MULTIVITAMIN 10 ML, TRACE ELEMENTS 1 ML IV SCH (19:15)
[2023-12-05 05:45] LABS: BASOPHILS % (AUTO) 0.7 %; EOSINOPHILS # (AUTO) 0.3 10^3/uL (0.0-0.7); EOSINOPHILS % (AUTO) 6.3 %; HCT - HEMATOCRIT 33.4 % (42.0-52.0); HGB - HEMOGLOBIN 10.7 g/dL (14.0-18.0); LYMPHOCYTES # (AUTO) 0.8 10^3/uL (1.5-3.5); LYMPHOCYTES % (AUTO) 14.5 %; MEAN CORPUSCULAR HEMOGLOBIN 30.3 pg (27.0-31.0); MEAN CORPUSCULAR VOLUME 94.6 fL (80.0-94.0); MEAN PLATELET VOLUME 10.9 fL (7.4-11.4); MONOCYTES # (AUTO) 0.7 10^3/uL (0.0-1.0); MONOCYTES % (AUTO) 12.1 %; NEUTROPHILS # (AUTO) 3.5 10^3/uL (1.5-6.6); NEUTROPHILS % (AUTO) 64.9 %; PLT - PLATELET COUNT 176 10^3/uL (130-450); RED BLOOD COUNT 3.53 10^6/uL (4.70-6.10); RED CELL DISTRIBUTION WIDTH 13.3 % (12.0-15.0); WHITE BLOOD COUNT 5.4 x10^3/uL (4.8-10.8)
[2023-12-05 05:50] LABS: ALBUMIN 2.6 g/dL (3.2-5.5); ALBUMIN/GLOBULIN RATIO 1.1 (1.0-2.2); BILIRUBIN,TOTAL 0.3 mg/dL (0.2-1.0); CALCIUM 8.3 mg/dL (8.5-10.3); CREATININE 0.8 mg/dL (0.6-1.3); MAGNESIUM 1.8 mg/dL (1.7-2.3); PHOSPHORUS 2.8 mg/dL (2.5-5.0); POTASSIUM 3.6 mmol/L (3.5-4.5); TOTAL PROTEIN 4.9 g/dL (6.4-8.9)
[2023-12-05] MEDS: ONDANSETRON ODT 4 MG TABLET TL PRN (14:29)
--- NOTE | 2023-12-05 15:07 | PROVIDER PROGRESS NOTE ---
Subjective - Prog Note Date Prog Note Date: 12/05/23 Prog Note Time: 15:05 - Subjective Pt reports feeling: Improved Subjective: ambulating to induce a BM. Stomach still disstended. By later morning had a small BM and clear liquid advance to full liquid by lunch. No nausea and emesis. but surgery cautioned against moving too fast since this last week he had eaten too much after NG pulled and he had to have NG again. No fever, no chest pain. Current Medications - Current Medications Current Medications: Active Medications Acetaminophen (Acetaminophen 325 Mg Tablet) 650 mg PO Q4HR PRN PRN Reason: Pain or Fever > 38C (100.4F) Last Admin: 12/05/23 06:40 Dose: 650 mg Apixaban (Apixaban 5 Mg Tablet) 5 mg PO BID [facility] Last Admin: 12/05/23 09:38 Dose: 5 mg Atenolol (Atenolol 25 Mg Tablet) 25 mg PO BID [facility] Last Admin: 12/05/23 09:38 Dose: 25 mg Atorvastatin Calcium (Atorvastatin 10 Mg Tablet) 20 mg PO QPM [facility] Last Admin: 12/04/23 20:49 Dose: 20 mg Carboxymethylcellulose (Carboxymethylcellulose Ophth Drops) 1 drops EACHEYE PRN PRN PRN Reason: Dry Eye Last Admin: 12/04/23 21:59 Dose: 1 drops Hydromorphone HCl (Hydromorphone 0.5 Mg/0.5 Ml Syringe) 0.5 mg IVP Q2H PRN PRN Reason: Severe Pain (Level 7-10) Last Admin: 12/05/23 14:21 Dose: 0.5 mg Ceftriaxone Sodium 2 gm/ (Sodium Chloride) 100 mls @ 200 mls/hr IV 1000 MARKY Last Infusion: 12/05/23 12:22 Dose: Infused Multivitamins 10 ml/ TRACE ELEMENTS 1 ml/ Amino Acids/Electrolytes/Dextrose 2,011 mls @ 83 mls/hr IV 1900 MARKY; Protocol Last Infusion: 12/04/23 22:56 Dose: 83 mls/hr Fat Emulsion Intravenous (Intralipid 20%) 250 mls @ 21 mls/hr IV 1900 MARKY Last Infusion: 12/05/23 06:48 Dose: Infused Levothyroxine Sodium (Levothyroxine 100 Mcg Tablet) 100 mcg PO QDAC [facility] Last Admin: 12/05/23 06:03 Dose: 100 mcg Mineral Oil (Mineral Oil Enema 133 Ml Bottle) 133 ml RC BID [facility] Stop: 12/06/23 12:59 Last Admin: 12/05/23 09:38 Dose: Not Given Ondansetron HCl (Ondansetron Odt 4 Mg Tablet) 4 mg TL Q4HR PRN PRN Reason: Nausea / Vomiting Last Admin: 12/05/23 14:29 Dose: 4 mg Ondansetron HCl (Ondansetron 4 Mg/2 Ml Vial) 4 mg IVP Q4HR PRN PRN Reason: Nausea / Vomiting Last Admin: 12/02/23 02:47 Dose: 4 mg Pantoprazole Sodium (Pantoprazole 40 Mg Tablet) 40 mg PO QDAC [facility] Last Admin: 12/05/23 06:03 Dose: 40 mg Phenol/Menthol (Phenol Throat [place] 177 Ml) 2 sprays MM Q2HR PRN PRN Reason: Throat Pain Last Admin: 12/04/23 19:24 Dose: 2 sprays Saliva Substitute (Saliva Stimulant [place] 44.3 Ml Bottle) 2 sprays PO Q4H PRN PRN Reason: Mouth Sore Pain Last Admin: 12/05/23 07:47 Dose: 2 sprays Sodium Chloride (Sodium Chloride Flush 0.9% 10 Ml Syringe) 10 ml IVP PRN PRN PRN Reason: NEEDED PER PROVIDER ORDERS Last Admin: 12/04/23 19:24 Dose: 10 ml Sodium Chloride (Sodium Chloride Flush 0.9% 10 Ml Syringe) 10 ml IVP 0100,0900,1700 [facility] Last Admin: 12/05/23 07:47 Dose: 10 ml Trazodone HCl (Trazodone 50 Mg Tablet) 50 mg PO QPM [facility] Last Admin: 12/04/23 21:59 Dose: 50 mg Home MEDS: Losartan [Cozaar] 50 mg PO QPM 08/16/13 Apixaban [Eliquis] 5 mg PO BID 11/27/23 Atorvastatin [Lipitor] 20 mg PO QPM 11/27/23 Cholecalciferol [Vitamin D3] 125 mcg PO DAILY 11/27/23 Doxycycline Hyclate [Vibramycin] 100 mg PO DAILY 11/27/23 Furosemide [Lasix] 40 mg PO DAILY 11/27/23 Ipratropium [place] 2 spr SANDRA BID 11/27/23 Levothyroxine [Synthroid] 100 mcg PO QDAC 11/27/23 Multivitamin [Theragran] 1 tab PO DAILY 11/27/23 Tamsulosin [Flomax] 0.8 mg PO QPM 11/27/23 atenoloL [Tenormin] 25 mg PO BID 11/27/23 cilostazoL [Cilostazol] 50 mg PO BID 11/27/23 Objective - Vital Signs/Intake & Output Reviewed Vital Signs: Yes Vital Signs: Vital Signs x48h Temp Pulse Resp BP Pulse Ox 12/05/23 08:00 36.7 C 93 22 125/59 L 94 Intake & Output: Intake & Output 12/02/23 12/03/23 12/04/23 12/05/23 23:59 23:59 23:59 23:59 Intake Total 1919 2831.667 4059.733 1192.65 Output Total 3000 3150 1375 Balance -1081 -405.471 5632.733 1192.65 - Objective General Appearance: positive: Alert, Mild distress (from distension), Other (thin, needs no assist to go from supine to sitting to standing. Able to walk to bathroom) Eyes Bilateral: positive: PERRL, EOMI ENT: positive: Pharynx nml Neck: positive: No JVD. negative: Stiff neck Respiratory: positive: No respiratory distress. negative: Wheezes, Rales, Rhonchi Cardiovascular: positive: Regular rate & rhythm. negative: Tachycardia Abdomen: positive: Other (distended, tympanitic palpation, low xiong bowel sounds but no tenderness) Skin: positive: Warm, Dry Extremities: positive: No pedal edema Neurologic/Psychiatric: positive: Oriented x3, CN's nml (2-12), Motor nml - Lab Results Fish Bones: 12/05/23 05:16 12/05/23 05:16 Other Labs: Lab Results x24hrs 12/05/23 12/05/23 Range/Units 05:16 05:16 WBC 5.4 (4.8-10.8) x10^3/uL RBC 3.53 L (4.70-6.10) 10^6/uL Hgb 10.7 L (14.0-18.0) g/dL Hct 33.4 L (42.0-52.0) % MCV 94.6 H (80.0-94.0) fL MCH 30.3 (27.0-31.0) pg MCHC 32.0 (32.0-36.0) g/dL RDW 13.3 (12.0-15.0) % Plt Count 176 (130-450) 10^3/uL MPV 10.9 (7.4-11.4) fL Neut # (Auto) 3.5 (1.5-6.6) 10^3/uL Lymph # (Auto) 0.8 L (1.5-3.5) 10^3/uL [place] # (Auto) 0.7 (0.0-1.0) 10^3/uL Eos # (Auto) 0.3 (0.0-0.7) 10^3/uL Baso # (Auto) 0.0 (0.0-0.1) 10^3/uL Absolute Nucleated RBC 0.00 x10^3/uL Nucleated RBC % 0.0 /100WBC Sodium 136 (135-145) mmol/L Potassium 3.6 (3.5-4.5) mmol/L Chloride 103 (101-111) mmol/L Carbon Dioxide 30 (21-32) mmol/L Anion Gap 3.0 L (6-13) BUN 15 (6-20) mg/dL Creatinine 0.8 (0.6-1.3) mg/dL Estimated GFR (MDRD) 93 (>89) Glucose 120 H (74-104) mg/dL Calcium 8.3 L (8.5-10.3) mg/dL Phosphorus 2.8 (2.5-5.0) mg/dL Magnesium 1.8 (1.7-2.3) mg/dL Total Bilirubin 0.3 (0.2-1.0) mg/dL AST 16 (10-42) IU/L ALT 13 (10-60) IU/L Alkaline Phosphatase 47 (42-121) IU/L Total Protein 4.9 L (6.4-8.9) g/dL Albumin 2.6 L (3.2-5.5) g/dL Globulin 2.3 (2.1-4.2) g/dL Albumin/Globulin Ratio 1.1 (1.0-2.2) Prealbumin 9 L (17-34) mg/dL Triglycerides 174 (48-352) mg/dL Assessment/Plan - Problem List (1) Small bowel obstruction Impression: NGT clamped and low residuals today. Had a BM Plan: dc NG at his request even though we warned it may need to be resumed advance to full liquid and if he tolerates, he can be advanced to low residue tomorrow. We are moving slowly at the request of surgery. Case discussed with Dr. Kelley. (2) CAD (coronary artery disease) Assessment/Plan: --Continue atenolol and atorvastatin. (3) H/O aortic valve replacement Assessment/Plan: --Bioprosthetic aortic valve replacement. He can return to daily aspirin upon discharge. (4) Atrial fibrillation rate is controlled and he is anticoagulated. (5) Abnormal chest xray 12/02/23 He was started on ceftriaxone and azithromycin for possible pna identified on cxr done for NG. Has been without fever, WBC elevation or hypoxia. I will stop on Day #3.
[2023-12-05] MEDS: oxyCODONE 5 MG TABLET PO PRN (19:46)
[2023-12-06 05:33] LABS: BASOPHILS # (AUTO) 0.1 10^3/uL (0.0-0.1); BASOPHILS % (AUTO) 0.8 %; EOSINOPHILS # (AUTO) 0.3 10^3/uL (0.0-0.7); EOSINOPHILS % (AUTO) 5.2 %; HCT - HEMATOCRIT 35.1 % (42.0-52.0); LYMPHOCYTES # (AUTO) 0.7 10^3/uL (1.5-3.5); LYMPHOCYTES % (AUTO) 11.2 %; MEAN CORPUSCULAR HEMOGLOBIN 29.4 pg (27.0-31.0); MEAN CORPUSCULAR HGB CONC 31.3 g/dL (32.0-36.0); MEAN CORPUSCULAR VOLUME 93.9 fL (80.0-94.0); MEAN PLATELET VOLUME 11.4 fL (7.4-11.4); MONOCYTES # (AUTO) 0.7 10^3/uL (0.0-1.0); MONOCYTES % (AUTO) 11.9 %; NEUTROPHILS # (AUTO) 4.1 10^3/uL (1.5-6.6); NEUTROPHILS % (AUTO) 68.1 %; PLT - PLATELET COUNT 182 10^3/uL (130-450); RED BLOOD COUNT 3.74 10^6/uL (4.70-6.10); RED CELL DISTRIBUTION WIDTH 13.3 % (12.0-15.0)
[2023-12-06 05:51] LABS: CALCIUM 8.3 mg/dL (8.5-10.3); CREATININE 0.9 mg/dL (0.6-1.3); POTASSIUM 3.9 mmol/L (3.5-4.5)
--- NOTE | 2023-12-06 07:42 | PROVIDER PROGRESS NOTE ---
Subjective - General Admit Date: 11/27/23 - Review of Systems General: positive: No symptoms Pulmonary: positive: No symptoms Cardiovascular: positive: No symptoms Gastrointestinal: positive: Flatus (and BM's yesterday). negative: Abdominal pain Skin: positive: No symptoms Psychiatric: positive: No symptoms - Other Other Information/Narrative: Tolerating full liquid diet. No n/v. +BM's. Still having some abdominal discomfort, but feels it is improving. Objective - Patient Data Weight: Weight 12/04/23 12/05/23 12/06/23 23:59 23:59 23:59 Weight (kg) 68 kg 76 kg Intake & Output: Intake and Output Totals x24h 12/04/23 12/05/23 12/06/23 23:59 23:59 23:59 Intake Total 4059.733 3694.15 247.1 Output Total 1375 Balance 2684.733 3694.15 247.1 - Lab Results Lab Results: 12/06/23 05:03 12/06/23 05:03 Other Lab Results: Lab Results x24hrs 12/06/23 12/06/23 Range/Units 05:03 05:03 WBC 6.0 (4.8-10.8) x10^3/uL RBC 3.74 L (4.70-6.10) 10^6/uL Hgb 11.0 L (14.0-18.0) g/dL Hct 35.1 L (42.0-52.0) % MCV 93.9 (80.0-94.0) fL MCH 29.4 (27.0-31.0) pg MCHC 31.3 L (32.0-36.0) g/dL RDW 13.3 (12.0-15.0) % Plt Count 182 (130-450) 10^3/uL MPV 11.4 (7.4-11.4) fL Neut # (Auto) 4.1 (1.5-6.6) 10^3/uL Lymph # (Auto) 0.7 L (1.5-3.5) 10^3/uL [place] # (Auto) 0.7 (0.0-1.0) 10^3/uL Eos # (Auto) 0.3 (0.0-0.7) 10^3/uL Baso # (Auto) 0.1 (0.0-0.1) 10^3/uL Absolute Nucleated RBC 0.00 x10^3/uL Nucleated RBC % 0.0 /100WBC Sodium 135 (135-145) mmol/L Potassium 3.9 (3.5-4.5) mmol/L Chloride 105 (101-111) mmol/L Carbon Dioxide 26 (21-32) mmol/L Anion Gap 4.0 L (6-13) BUN 17 (6-20) mg/dL Creatinine 0.9 (0.6-1.3) mg/dL Estimated GFR (MDRD) 81 L (>89) Glucose 117 H (74-104) mg/dL Calcium 8.3 L (8.5-10.3) mg/dL - Current Medications Current Medications: Current Medications Generic Name Dose Route Start Last Admin Trade Name Freq PRN Reason Stop Dose Admin Acetaminophen 650 mg 11/27/23 13:32 12/06/23 04:14 Acetaminophen 325 Mg Tablet PO 650 mg Q4HR PRN Administration Pain or Fever > 38C (100.4F) Apixaban 5 mg 11/28/23 21:00 12/05/23 21:10 Apixaban 5 Mg Tablet PO 5 mg BID MARKY Administration Atenolol 25 mg 11/28/23 09:00 12/05/23 21:10 Atenolol 25 Mg Tablet PO 25 mg BID MARKY Administration Atorvastatin Calcium 20 mg 11/28/23 21:00 12/05/23 21:10 Atorvastatin 10 Mg Tablet PO 20 mg QPM MARKY Administration Carboxymethylcellulose 1 drops 12/03/23 18:13 12/04/23 21:59 Carboxymethylcellulose Ophth Drops EACHEYE 1 drops PRN PRN Administration Dry Eye Hydromorphone HCl 0.5 mg 11/28/23 07:17 12/05/23 14:21 Hydromorphone 0.5 Mg/0.5 Ml Syringe IVP 0.5 mg Q2H PRN Administration Severe Pain (Level 7-10) Ceftriaxone Sodium 2 gm/ 100 mls @ 200 mls/hr 12/02/23 13:00 12/05/23 12:22 Sodium Chloride IV Infused 1000 MARKY Infusion Multivitamins 10 ml/ TRACE 2,011 mls @ 83 mls/hr 12/04/23 19:00 12/05/23 19:26 ELEMENTS 1 ml/ Amino Acids/ IV 83 mls/hr Electrolytes/Dextrose 1900 [facility] Administration Protocol Fat Emulsion Intravenous 250 mls @ 21 mls/hr 12/04/23 19:00 12/06/23 07:12 Intralipid 20% IV Infused 1900 [facility] Infusion Levothyroxine Sodium 100 mcg 11/29/23 07:00 12/06/23 06:13 Levothyroxine 100 Mcg Tablet PO 100 mcg QDAC [facility] Administration Mineral Oil 133 ml 12/04/23 13:00 12/05/23 21:11 Mineral Oil Enema 133 Ml Bottle RC 12/06/23 12:59 Not Given BID MARKY Ondansetron HCl 4 mg 11/28/23 12:43 12/05/23 14:29 Ondansetron Odt 4 Mg Tablet TL 4 mg Q4HR PRN Administration Nausea / Vomiting Ondansetron HCl 4 mg 11/28/23 12:43 12/02/23 02:47 Ondansetron 4 Mg/2 Ml Vial IVP 4 mg Q4HR PRN Administration Nausea / Vomiting Oxycodone HCl 5 mg 12/05/23 19:29 12/05/23 19:46 Oxycodone 5 Mg Tablet PO 5 mg Q4HR PRN Administration Moderate Pain (Level 4-6) Pantoprazole Sodium 40 mg 11/28/23 17:00 12/06/23 06:13 Pantoprazole 40 Mg Tablet PO 40 mg QDAC [facility] Administration Phenol/Menthol 2 sprays 11/27/23 12:18 12/04/23 19:24 Phenol Throat [place] 177 Ml MM 2 sprays Q2HR PRN Administration Throat Pain Saliva Substitute 2 sprays 12/04/23 10:41 12/05/23 19:46 Saliva Stimulant [place] 44.3 Ml Bottle PO 2 sprays Q4H PRN Administration Mouth Sore Pain Sodium Chloride 10 ml 11/27/23 08:53 12/04/23 19:24 Sodium Chloride Flush 0.9% 10 Ml Syringe IVP 10 ml PRN PRN Administration NEEDED PER PROVIDER ORDERS Sodium Chloride 10 ml 11/27/23 17:00 12/06/23 00:01 Sodium Chloride Flush 0.9% 10 Ml Syringe IVP 10 ml 0100,0900,1700 [facility] Administration Trazodone HCl 50 mg 11/30/23 21:00 12/05/23 21:10 Trazodone 50 Mg Tablet PO 50 mg QPM MARKY Administration - Physical Exam General Appearance: positive: No acute distress, Alert Eyes Bilateral: positive: Normal inspection, PERRL ENT: positive: No signs of dehydration Neck: positive: Trachea midline Respiratory: positive: No respiratory distress Cardiovascular: positive: Regular rate & rhythm Abdomen: positive: Tenderness (diffuse, very mild). negative: No distention (mildly distended), Guarding, Rebound Rectal: positive: Non-tender Skin: positive: No rash Neurologic/Psychiatric: positive: Oriented x3 Impression/Plan - Problem List Problem List: 78 y/o M with SBO vs ileus vs constipation - Having BM's now, NG removed - patient also uses narcotic pain medication daily and uses enemas to promote bowel function at home - tolerating full liquids. Recommend adding protein shakes and advancing diet slowly (soft/low residue for one meal, then if tolerates well, can adat to regular) - +void - non sugical abdomen on exam - I suspect the patient has a chronically slow transit time as evidenced on imaging, I suspect constipation/ileus due in part to chronic narcotic use. I recommend continued bowel regimen with miralax (titrate number of doses with goal or 1-2 BM/day) and prn enemas. 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 - surgery will continue to follow
--- NOTE | 2023-12-06 18:43 | PROVIDER PROGRESS NOTE ---
Subjective - Prog Note Date Prog Note Date: 12/06/23 Prog Note Time: 18:41 - Subjective Subjective: I hope to send him home this afternoon. He has been tolerating a full liquid diet and then I gave him a regular meal at dinner. He feels bloated and is be lching quite a bit. His rectum is starting to ache because of now the frequent bowel movements he is having. He now complains of shortness of breath and abdominal fullness. He feels like he is diffusely edematous. He feels like the PPN we gave him has just given him 20 pounds and he is upset about that. Repetitive conversation. He must of repeated his thought process about fluids, his anxiety about paying for taxes for his family, his anxiety about his partner Chong at home with his dementia, and his anxiety about needing help at home for himself. As he speaks, the fast pressured speech is resulted in some tachypnea and dyspnea. Current Medications - Current Medications Current Medications: Active Medications Acetaminophen (Acetaminophen 325 Mg Tablet) 650 mg PO Q4HR PRN PRN Reason: Pain or Fever > 38C (100.4F) Last Admin: 12/06/23 11:51 Dose: 650 mg Apixaban (Apixaban 5 Mg Tablet) 5 mg PO BID [facility] Last Admin: 12/06/23 08:14 Dose: 5 mg Atenolol (Atenolol 25 Mg Tablet) 25 mg PO BID [facility] Last Admin: 12/06/23 08:14 Dose: 25 mg Atorvastatin Calcium (Atorvastatin 10 Mg Tablet) 20 mg PO QPM [facility] Last Admin: 12/05/23 21:10 Dose: 20 mg Carboxymethylcellulose (Carboxymethylcellulose Ophth Drops) 1 drops EACHEYE PRN PRN PRN Reason: Dry Eye Last Admin: 12/04/23 21:59 Dose: 1 drops Hydromorphone HCl (Hydromorphone 0.5 Mg/0.5 Ml Syringe) 0.5 mg IVP Q2H PRN PRN Reason: Severe Pain (Level 7-10) Last Admin: 12/05/23 14:21 Dose: 0.5 mg Ceftriaxone Sodium 2 gm/ (Sodium Chloride) 100 mls @ 200 mls/hr IV 1000 [facility] Last Admin: 12/06/23 10:49 Dose: Not Given Levothyroxine Sodium (Levothyroxine 100 Mcg Tablet) 100 mcg PO QDAC [facility] Last Admin: 12/06/23 06:13 Dose: 100 mcg Ondansetron HCl (Ondansetron Odt 4 Mg Tablet) 4 mg TL Q4HR PRN PRN Reason: Nausea / Vomiting Last Admin: 12/05/23 14:29 Dose: 4 mg Ondansetron HCl (Ondansetron 4 Mg/2 Ml Vial) 4 mg IVP Q4HR PRN PRN Reason: Nausea / Vomiting Last Admin: 12/02/23 02:47 Dose: 4 mg Oxycodone HCl (Oxycodone 5 Mg Tablet) 5 mg PO Q4HR PRN PRN Reason: Moderate Pain (Level 4-6) Last Admin: 12/05/23 19:46 Dose: 5 mg Pantoprazole Sodium (Pantoprazole 40 Mg Tablet) 40 mg PO QDAC [facility] Last Admin: 12/06/23 06:13 Dose: 40 mg Phenol/Menthol (Phenol Throat [place] 177 Ml) 2 sprays MM Q2HR PRN PRN Reason: Throat Pain Last Admin: 12/04/23 19:24 Dose: 2 sprays Saliva Substitute (Saliva Stimulant [place] 44.3 Ml Bottle) 2 sprays PO Q4H PRN PRN Reason: Mouth Sore Pain Last Admin: 12/06/23 08:14 Dose: 2 sprays Sodium Chloride (Sodium Chloride Flush 0.9% 10 Ml Syringe) 10 ml IVP PRN PRN PRN Reason: NEEDED PER PROVIDER ORDERS Last Admin: 12/04/23 19:24 Dose: 10 ml Sodium Chloride (Sodium Chloride Flush 0.9% 10 Ml Syringe) 10 ml IVP 0100,0900,1700 [facility] Last Admin: 12/06/23 18:30 Dose: 10 ml Trazodone HCl (Trazodone 50 Mg Tablet) 50 mg PO QPM [facility] Last Admin: 12/05/23 21:10 Dose: 50 mg Losartan [Cozaar] 50 mg PO QPM 08/16/13 Apixaban [Eliquis] 5 mg PO BID 11/27/23 Atorvastatin [Lipitor] 20 mg PO QPM 11/27/23 Cholecalciferol [Vitamin D3] 125 mcg PO DAILY 11/27/23 Doxycycline Hyclate [Vibramycin] 100 mg PO DAILY 11/27/23 Furosemide [Lasix] 40 mg PO DAILY 11/27/23 Ipratropium [place] 2 spr SANDRA BID 11/27/23 Levothyroxine [Synthroid] 100 mcg PO QDAC 11/27/23 Multivitamin [Theragran] 1 tab PO DAILY 11/27/23 Tamsulosin [Flomax] 0.8 mg PO QPM 11/27/23 atenoloL [Tenormin] 25 mg PO BID 11/27/23 cilostazoL [Cilostazol] 50 mg PO BID 11/27/23 Objective - Vital Signs/Intake & Output Reviewed Vital Signs: Yes Vital Signs: Vital Signs x48h Temp Pulse Resp BP Pulse Ox 12/06/23 16:00 37.1 C 64 16 184/85 H 93 Intake & Output: Intake & Output 12/03/23 12/04/23 12/05/23 12/06/23 23:59 23:59 23:59 23:59 Intake Total 2831.667 4059.733 3694.15 2698.1 Output Total 3150 1375 Balance -157.414 0384.733 3694.15 2698.1 - Objective General Appearance: positive: Alert, Mild distress (From belching and feeling bloated), Other (low slightly dysphonic voice. Elderly gentleman wearing glasses.) Eyes Bilateral: positive: PERRL, EOMI ENT: positive: No signs of dehydration Neck: positive: No JVD. negative: Stiff neck Respiratory: positive: No respiratory distress. negative: Wheezes, Rales, Rhonchi Cardiovascular: positive: Regular rate & rhythm Abdomen: positive: Non-tender, No organomegaly, Nml bowel sounds, Other (Tympanitic and bloated. High-pitched hyperactive bowel sounds.). negative: Tenderness, Guarding, Rebound Skin: positive: Warm, Dry Extremities: positive: Full ROM, Pedal edema Neurologic/Psychiatric: positive: Oriented x3, CN's nml (2-12), Motor nml - Lab Results Fish Bones: 12/06/23 05:03 12/06/23 05:03 Other Labs: Lab Results x24hrs 12/06/23 12/06/23 Range/Units 05:03 05:03 WBC 6.0 (4.8-10.8) x10^3/uL RBC 3.74 L (4.70-6.10) 10^6/uL Hgb 11.0 L (14.0-18.0) g/dL Hct 35.1 L (42.0-52.0) % MCV 93.9 (80.0-94.0) fL MCH 29.4 (27.0-31.0) pg MCHC 31.3 L (32.0-36.0) g/dL RDW 13.3 (12.0-15.0) % Plt Count 182 (130-450) 10^3/uL MPV 11.4 (7.4-11.4) fL Neut # (Auto) 4.1 (1.5-6.6) 10^3/uL Lymph # (Auto) 0.7 L (1.5-3.5) 10^3/uL [place] # (Auto) 0.7 (0.0-1.0) 10^3/uL Eos # (Auto) 0.3 (0.0-0.7) 10^3/uL Baso # (Auto) 0.1 (0.0-0.1) 10^3/uL Absolute Nucleated RBC 0.00 x10^3/uL Nucleated RBC % 0.0 /100WBC Sodium 135 (135-145) mmol/L Potassium 3.9 (3.5-4.5) mmol/L Chloride 105 (101-111) mmol/L Carbon Dioxide 26 (21-32) mmol/L Anion Gap 4.0 L (6-13) BUN 17 (6-20) mg/dL Creatinine 0.9 (0.6-1.3) mg/dL Estimated GFR (MDRD) 81 L (>89) Glucose 117 H (74-104) mg/dL Calcium 8.3 L (8.5-10.3) mg/dL Assessment/Plan - Problem List (1) Small bowel obstruction Impression: Resolved: NG was clamped on December 04. Removed yesterday. Started on full liquids. This morning he had full liquids and also for lunch. I then advance his diet to normal diet. He tolerated that well for evening dinner. Plan: Low residue diet for the next few weeks. Discharge would have been today except for now symptoms of fluid overload. (2) Fluid overload. He had negative balance on December 01 and December 02. Sheila 8 he was +2684, and December 04 +3694. As of this dictation he is +2698 for today with no urine output recorded. But he is urinating. Eating 100% of his food. Plan: Stop TPN Lasix 40 mg IV push Long conversation held with patient about what might of occurred. Very repetitive conversation. He said that at 1 point today he felt like he was not being listened to and called his primary care provider. He tells me that his primary care provider is Thomas guerin and Dr. Booker will see him in follow- up in the next 1 to 2 weeks at discharge. Because the patient has edema, feels fluid overloaded, and objective data documents that, I will keep him overnight. Lasix 40 mg IV push. (3) CAD (coronary artery disease) Assessment/Plan: --Continue atenolol and atorvastatin. (4) H/O aortic valve replacement Assessment/Plan: --Bioprosthetic aortic valve replacement. He can return to daily aspirin upon discharge. (5) Atrial fibrillation rate is controlled and he is anticoagulated. (6) Abnormal chest xray 12/02/23 He was started on ceftriaxone and azithromycin for possible pna identified on cxr done for NG. Has been without fever, WBC elevation or hypoxia. I stopped on Day #3.
[2023-12-06] MEDS: FUROSEMIDE 40 MG/4 ML VIAL IVP STA (19:05)
[2023-12-06] MEDS: SIMETHICONE CHEW 80 MG TABLET PO PRN (21:16)
[2023-12-07 05:44] LABS: BASOPHILS # (AUTO) 0.1 10^3/uL (0.0-0.1); BASOPHILS % (AUTO) 0.6 %; EOSINOPHILS # (AUTO) 0.2 10^3/uL (0.0-0.7); EOSINOPHILS % (AUTO) 3.1 %; HCT - HEMATOCRIT 36.2 % (42.0-52.0); HGB - HEMOGLOBIN 11.7 g/dL (14.0-18.0); LYMPHOCYTES # (AUTO) 0.8 10^3/uL (1.5-3.5); LYMPHOCYTES % (AUTO) 10.5 %; MEAN CORPUSCULAR HEMOGLOBIN 29.5 pg (27.0-31.0); MEAN CORPUSCULAR HGB CONC 32.3 g/dL (32.0-36.0); MEAN CORPUSCULAR VOLUME 91.4 fL (80.0-94.0); MEAN PLATELET VOLUME 11.4 fL (7.4-11.4); MONOCYTES # (AUTO) 0.8 10^3/uL (0.0-1.0); MONOCYTES % (AUTO) 10.3 %; NEUTROPHILS # (AUTO) 5.7 10^3/uL (1.5-6.6); NEUTROPHILS % (AUTO) 73.7 %; PLT - PLATELET COUNT 202 10^3/uL (130-450); RED BLOOD COUNT 3.96 10^6/uL (4.70-6.10); RED CELL DISTRIBUTION WIDTH 13.3 % (12.0-15.0); WHITE BLOOD COUNT 7.8 x10^3/uL (4.8-10.8)
[2023-12-07 05:59] LABS: ALBUMIN 2.9 g/dL (3.2-5.5); ALBUMIN/GLOBULIN RATIO 1.2 (1.0-2.2); BILIRUBIN,TOTAL 0.5 mg/dL (0.2-1.0); CALCIUM 8.8 mg/dL (8.5-10.3); MAGNESIUM 1.7 mg/dL (1.7-2.3); PHOSPHORUS 3.2 mg/dL (2.5-5.0); POTASSIUM 3.9 mmol/L (3.5-4.5); TOTAL PROTEIN 5.3 g/dL (6.4-8.9)
[2023-12-07 08:07] VITALS: BP 126/88; O2SAT 95
--- NOTE | 2023-12-07 11:04 | Discharge Plan ---
Discharge Plan Problem Reviewed?: Yes Disposition: Home, Self Care Condition: Good Prescriptions: methocarbamoL [Robaxin] 500 mg PO Q6H #20 tablet Diet: Regular (low fiber , low residue diet) Shower Restrictions: No Driving Restrictions: No Instruction Topics: Diet Low Residue Health Concerns: You are an elderly gentleman who has multiple medical problems with atherosclerotic disease as well as chronic atrial fibrillation. He presented to our emergency room with nausea, abdominal pain and distention, inability to have a bowel movement. We found you to have a bowel obstruction. Bowel obstruction is usually caused because of scar tissue within the abdomen especially if you have had previous abdominal surgery. They can also be due to internal involution of the bowel at your age. And less rarely they can be due to cancer. Our CAT scan shows that you have probable scar tissue. We had an NG tube placed in your nose to drain your stomach. We used pain medicines, nausea medicines, and antibiotics. The antibiotics were also because with one of your episodes of vomiting you inhale some acid and had pneumonitis of the right upper lung. Eventually your bowel opened up on its own. You were able to pass stool and gas. We then started feeding you clear liquids, then full liquids and then a regular diet. You do well with that and are ready to go home. While here you are very, very, very concerned about a 20 pound weight gain because the intravenous fluid we gave you caused you to retain fluids. Will stop the parenteral nutrition, gave you Lasix 40 mg IV push, and you had satisfactory results according to you. Plan of Treatment: 1. Please see your primary care provider, Thomas Booker, in the next 1 to 2 weeks for follow-up. 2. On the morning of discharge you said that you are prone to getting leg cramps and you asked for 5 tablets of oxycodone. Instead of oxycodone, I have offered Robaxin 500 mg. You can take 1 tablet once a day to see if that helps. 3. Please eat a low residue/low fiber diet for the next 1 to 2 weeks. The lan engineer came by your room to discuss what a low residue diet is. 4. Prior to discharge we had discussed your resuscitative status. You wish to be DO NOT RESUSCITATE. As such we filled out a physician order for life- sustaining treatment form. A copy has been filed in your chart. You will take the original green paper form home with you. Assessment: Patient is alert, oriented to person place and time and situation. No Smoking: If you smoke, Please STOP! Call for help. Follow-up with: TANA BOOKER MD [Physician No Access] -
--- NOTE | 2023-12-07 11:07 | DISCHARGE SUMMARY ---
Discharge Summary Admit Date: 11/27/23 Discharge Date: 12/07/23 Discharging Provider: Rosa Dyson MD Primary Care Provider: Thomas Booker MD Code Status: Do Not Attempt Resuscitation Condition at Discharge: Good Discharge Disposition: 01 Home, Self Care - DIAGNOSES Discharge Diagnoses with Status of Each Condition: 1. Small bowel obstruction 2. Fluid overload 3. Coronary artery disease 4. Chronic atrial fibrillation 5. Abnormality of lung on chest x-ray - HPI History of Present Illness: David Le is a 78-year-old man who presented to the emergency room with complaints of abdominal pain and vomiting. He presented to the emergency room on November 25, [address] scan of the abdomen and pelvis which revealed a partial small bowel obstruction versus ileus. Decision was made for the patient to be discharged home with conservative measures. During the night patient complained of increased pain and vomiting and presented to the emergency room this morning. Patient reports she has had abdominal pain for approximately 3 days. He denies any fever and chills. He reports no vomiting until this morning. He denies chest pain, shortness of breath, fever and chills In the emergency room, a nasogastric tube has been placed for decompression and patient reports resolution of his abdominal pain after placement of nasogastric tube. - Past Medical History Cardiovascular: reports: Hypertension, Coronary artery disease, Angina, [place], Atrial fibrillation, Valve disorder Endocrine/Autoimmune: reports: HyPOthyroidism Psych: reports: Depression, Anxiety - Past Surgical History Cardiovascular: reports: CABG, Valve replacement HEENT: reports: Tonsil/Adenoidectomy - CONSULTS | PROCEDURES Procedures: Several plain film abdominal x-rays were done from admission to discharge. He initially had distended small bowel with proximal dilation and distal compression. With the final KUB he had decreased distention of small bowel and intraluminal contrast was within the large bowel. Chest x-ray-right basilar infiltrate when NG was placed The day prior to this admission he did have a CT in the emergency room. The CT of the abdomen had diffuse mild dilation of the small bowel with air-fluid levels. Multiple loops demonstrated fecalization of materials. No transition point identified. Moderate to large burden of stool throughout the colon. - HOSPITAL COURSE Hospital Course: Patient was placed n.p.o. and NG was inserted. He was hydrated with IV fluids. It been several days since eaten. We then remove the NG and attempted to feed him again after a Gastrografin challenge. The Gastrografin challenge was unsuccessful. And he had recurrence of abdominal distention, vomiting. KUB confirmed continued dilated stomach and bowel. NG was put back in again. We waited several more days and eventually he was able to have a bowel movement and flatus. We started him on clear liquids, advance to full liquids and then a regular diet. Because he had not eaten and close to 8 days, PPN was started on the patient. On the day before discharge the patient felt he was more short of breath than he should have been and was very fixated on a 20 pound weight gain. He denies shortness of breath. Chest pain. Oxygenation was normal. Nursing, m yself, reassured the patient but nevertheless he was very unhappy to 20 pound weight gain. At 1 point he even said he was going to call 911. We gave him 40 mg of Lasix. And on the day of discharge he felt like he had adequate diuresis with the Lasix. The cause of his partial obstruction may have been severe constipation. General surgery is in the impression of this patient is using opioids at home and that he would benefit from reducing opioids and starting [facility] [facility]. However the patient has repeatedly stated that he does not take opioids. He controls the opioids for his partner Chong. Chong is the one that gets these drugs including fentanyl. But the patient himself does not take any opioids. During his stay a follow-up chest x-ray was done and showed a possible infiltrate and as such he was treated empirically as possible mild pneumonitis. I have asked him to follow-up with his primary care provider, Dr. Thomas [facility] at the [facility]. Resume his usual home medications which includes Lasix 40 mg daily. He will also resume his Eliquis. On the day of discharge he asked for oxycodone. He says it helps some with leg cramps. I deferred to his primary care provider about the use of opioids for cramps. But I did give the patient's 5 tablets of Robaxin.I have also asked him to use a low fiber diet or low residue diet for the next 1 to 2 weeks. During his stay he was followed by general surgery. Did not require surgery or transfusion. He is discharged in stable condition. Temperature is 37 1. Heart rate 78. Blood pressure 126/88. 95% on room air. 20 rate for respiration. Still feels slightly distended with his abdomen a 5 out of a 10. But he has frequent, tympanitic bowel sounds. He has had several bowel movements between yesterday and today. There is no edema with palpation but he does feel like his extremities are "thicker" than usual. He is alert and oriented to person, place, time and situation. Very anxious about getting his taxes, mother's taxes and sisters taxes done. During his stay he did request to be DO NOT RESUSCITATE status. But did not have a POLST form. As such we filled out a POLST form before he left and a copy was left for this and the original sent home with him.He has identified his Sister, Candi, as his DPOA that he would like us to contact if he is unable to speak for himself. Greater than 30 minutes spent coordinating discharge This document was made in part using voice recognition software. While efforts are made to proofread this document, sound alike and grammatical errors may occur. - ALLERGIES Allergies/Adverse Reactions: Allergies Allergy/AdvReac Type Severity Reaction Status Date / Time No Known Drug Allergies Allergy Verified 11/27/23 06:50 - MEDICATIONS Home Medications: Ambulatory Orders Medication Instructions Recorded Confirmed Losartan [Cozaar] 50 mg PO QPM 08/16/13 11/27/23 Apixaban [Eliquis] 5 mg PO BID 11/27/23 11/27/23 Atorvastatin [Lipitor] 20 mg PO QPM 11/27/23 11/27/23 Cholecalciferol [Vitamin D3] 125 mcg PO DAILY 11/27/23 11/27/23 Furosemide [Lasix] 40 mg PO DAILY 11/27/23 11/27/23 Ipratropium [place] 2 spr SANDRA BID 11/27/23 11/27/23 Levothyroxine [Synthroid] 100 mcg PO QDAC 11/27/23 11/27/23 Multivitamin [Theragran] 1 tab PO DAILY 11/27/23 11/27/23 Tamsulosin [Flomax] 0.8 mg PO QPM 11/27/23 11/27/23 atenoloL [Tenormin] 25 mg PO BID 11/27/23 11/27/23 cilostazoL [Cilostazol] 50 mg PO BID 11/27/23 11/27/23 methocarbamoL [Robaxin] 500 mg PO Q6H #20 tablet 12/07/23 - LABS Result Diagrams: 12/07/23 05:06 12/07/23 05:06
== END 2023-12-07 12:00 | disposition home or self-care (01) | DRG 389 ==
LOC: EDUNIT# → ED 06:35 → ICU 08:53 → MS3 11-28 14:19 → MS2 12-01 17:22
PROVIDERS: ADMIT Internal Medicine; ATTEND Specialist
PROC: 3E0336Z Introduction of Nutritional Substance into Peripheral Vein, Percutaneous Approach (ICD-10-PCS; principal; 2023-12-04)
DX: K56.609 Unspecified intestinal obstruction, unspecified as to partial versus complete obstruction (principal); D72.829 Elevated white blood cell count, unspecified; R73.9 Hyperglycemia, unspecified; I48.20 Chronic atrial fibrillation, unspecified; E87.70 Fluid overload, unspecified; I48.91 Unspecified atrial fibrillation; I25.10 Atherosclerotic heart disease of native coronary artery without angina pectoris; R91.8 Other nonspecific abnormal finding of lung field; I10 Essential (primary) hypertension; I44.7 Left bundle-branch block, unspecified; I25.2 Old myocardial infarction; Z79.01 Long term (current) use of anticoagulants; Z95.2 Presence of prosthetic heart valve; J98.4 Other disorders of lung; Z66 Do not resuscitate; E03.9 Hypothyroidism, unspecified; Z95.1 Presence of aortocoronary bypass graft; F41.9 Anxiety disorder, unspecified; F32.A Depression, unspecified
CPT/HCPCS: 36415; 74018; 74250; 80048; 80053; 81003; 83690; 83735; 84100; 84134; 84478; 85025; 93005; 99285; A9270; J1170; J1650; J3490; J7120; Q0162; Q9963; 81001

== ENCOUNTER 2024-02-16 09:40 | Outpatient (CLI) | payer MEDICARE | END 2024-02-16 09:41 | disposition home or self-care (01) | LOC: LAB.S 09:40 | PROVIDERS: ATTEND Specialist | DX: Z08 Encounter for follow-up examination after completed treatment for malignant neoplasm (principal); Z85.46 Personal history of malignant neoplasm of prostate | CPT/HCPCS: 36415; 84153 ==

== ENCOUNTER 2024-04-16 11:50 | Emergency (ER) | payer MEDICARE ==
[2024-04-16 12:31] LABS: BASOPHILS # (AUTO) 0.1 10^3/uL (0.0-0.1); BASOPHILS % (AUTO) 0.6 %; EOSINOPHILS % (AUTO) 0.5 %; HCT - HEMATOCRIT 43.5 % (42.0-52.0); HGB - HEMOGLOBIN 14.3 g/dL (14.0-18.0); LYMPHOCYTES # (AUTO) 0.8 10^3/uL (1.5-3.5); LYMPHOCYTES % (AUTO) 10.1 %; MEAN CORPUSCULAR HEMOGLOBIN 29.7 pg (27.0-31.0); MEAN CORPUSCULAR HGB CONC 32.9 g/dL (32.0-36.0); MEAN CORPUSCULAR VOLUME 90.4 fL (80.0-94.0); MEAN PLATELET VOLUME 10.5 fL (7.4-11.4); MONOCYTES # (AUTO) 0.6 10^3/uL (0.0-1.0); MONOCYTES % (AUTO) 6.9 %; NEUTROPHILS # (AUTO) 6.8 10^3/uL (1.5-6.6); NEUTROPHILS % (AUTO) 81.8 %; PLT - PLATELET COUNT 157 10^3/uL (130-450); RED BLOOD COUNT 4.81 10^6/uL (4.70-6.10); RED CELL DISTRIBUTION WIDTH 13.2 % (12.0-15.0); WHITE BLOOD COUNT 8.3 x10^3/uL (4.8-10.8)
[2024-04-16 12:49] LABS: ALBUMIN 4.5 g/dL (3.2-5.5); ALBUMIN/GLOBULIN RATIO 1.4 (1.0-2.2); BILIRUBIN,TOTAL 0.9 mg/dL (0.2-1.0); CALCIUM 10.3 mg/dL (8.5-10.3); CREATININE 1.2 mg/dL (0.6-1.3); POTASSIUM 3.9 mmol/L (3.5-4.5); TOTAL PROTEIN 7.7 g/dL (6.4-8.9)
[2024-04-16 13:29] LABS: BILIRUBIN,URINE NEGATIVE (NEGATIVE); GLUCOSE, URINE (UA) NEGATIVE (NEGATIVE); KETONES,URINE (UA) NEGATIVE (NEGATIVE); LEUKOCYTE ESTERASE, URINE NEGATIVE (NEGATIVE); NITRITE,URINE NEGATIVE (NEGATIVE); OCCULT BLOOD,URINE NEGATIVE (NEGATIVE); PROTEIN,URINE NEGATIVE (NEGATIVE); UROBILINOGEN,URINE 0.2 (NORMAL) E.U./dL (NORMAL)
[2024-04-16 13:30] LABS: CLARITY,URINE CLEAR (CLEAR)
--- NOTE | 2024-04-16 13:39 | ED Physician Documentation ---
PD HPI ABD PAIN - Stated complaint Stated Complaint: GI,ABD PX - Chief complaint Chief Complaint: Abd Pain - History obtained from History obtained from: Patient - Additional information Additional information: This is a very nice 79-year-old gentleman who presented with concern for possible bowel obstruction. The patient states he had a bowel obstruction back in November and This was treated with conservative management, no surgery. He has been doing well since then but this morning he had some discomfort in the periumbilical abdomen and was concerned that he may be developing a bowel obstruction and wanted to "to get on top of it" so came in. He ate a [place] muffin this morning but otherwise has been n.p.o. as he recalled that he was not allowed to eat for the bowel obstruction and so did not want to make anything worse. He has not had any vomiting, continues to pass gas, and passing small amounts of stool. He has not had a fever, and has not had any dysuria urgency or frequency. He has not attempted any treatment for this issue today. Review of Systems Constitutional: reports: Reviewed and negative Eyes: reports: Reviewed and negative Ears: reports: Reviewed and negative Nose: reports: Reviewed and negative Throat: reports: Reviewed and negative Cardiac: reports: Reviewed and negative Respiratory: reports: Reviewed and negative GI: reports: Abdominal Pain : reports: Reviewed and negative Skin: reports: Reviewed and negative Musculoskeletal: reports: Reviewed and negative PD PAST MEDICAL HISTORY - Past Medical History Past Medical History: Yes Cardiovascular: Hypertension, Coronary artery disease, Angina, [place], Atrial fibrillation, Valve disorder Respiratory: None Endocrine/Autoimmune: HyPOthyroidism : Other Psych: Depression, Anxiety Musculoskeletal: None - Past Surgical History Past Surgical History: Yes Cardiovascular: CABG, Valve replacement HEENT: Tonsil/Adenoidectomy - Present Medications Home Medications: Ambulatory Orders Medication Instructions Recorded Confirmed Losartan [Cozaar] 50 mg PO QPM 08/16/13 11/27/23 Apixaban [Eliquis] 5 mg PO BID 11/27/23 11/27/23 Atorvastatin [Lipitor] 20 mg PO QPM 11/27/23 11/27/23 Cholecalciferol [Vitamin D3] 125 mcg PO DAILY 11/27/23 11/27/23 Furosemide [Lasix] 40 mg PO DAILY 11/27/23 11/27/23 Ipratropium [place] 2 spr SANDRA BID 11/27/23 11/27/23 Levothyroxine [Synthroid] 100 mcg PO QDAC 11/27/23 11/27/23 Multivitamin [Theragran] 1 tab PO DAILY 11/27/23 11/27/23 Tamsulosin [Flomax] 0.8 mg PO QPM 11/27/23 11/27/23 atenoloL [Tenormin] 25 mg PO BID 11/27/23 11/27/23 cilostazoL [Cilostazol] 50 mg PO BID 11/27/23 11/27/23 methocarbamoL [Robaxin] 500 mg PO Q6H #20 tablet 12/07/23 - Allergies Allergies/Adverse Reactions: Allergies Allergy/AdvReac Type Severity Reaction Status Date / Time No Known Drug Allergies Allergy Verified 04/16/24 12:16 - Social History Does the pt smoke?: No Smoking Status: Never smoker Does the pt drink ETOH?: No Does the pt have substance abuse?: No - Immunizations Immunizations are current?: Yes - POLST Patient has POLST: No PD ED PE NORMAL - Vitals Vital signs reviewed: Yes - General General: Alert and oriented X 3, No acute distress, Well developed/nourished - HEENT HEENT: Atraumatic, Moist mucous membranes - Neck Neck: Supple, no meningeal sign - Cardiac Cardiac: RRR, No murmur - Respiratory Respiratory: No respiratory distress, Clear bilaterally - Abdomen Abdomen: Normal bowel sounds, Soft, Non distended, Other (No significant tenderness. The patient does state that when I pressed in the middle of his abdomen it feels "different" than if I had not pressed in his abdomen but it is not any significant pain, no guarding, no grimacing.) - Back Back: No CVA TTP - Derm Derm: Normal color, Warm and dry, No rash - Neuro Neuro: Alert and oriented X 3 Eye Opening: Spontaneous Motor: Obeys Commands Verbal: Oriented GCS Score: 15 - Psych Psych: Normal mood, Normal affect Results - Vitals Vitals: Vital Signs - 24 hr 04/16/24 04/16/24 04/16/24 12:17 14:20 16:00 Temperature 36.8 C Heart Rate 56 L 54 L 60 Respiratory 16 16 18 Rate Blood Pressure 160/75 H 160/76 H 156/72 H O2 Saturation 100 100 100 04/16/24 16:31 Temperature Heart Rate 78 Respiratory 16 Rate Blood Pressure 146/84 H O2 Saturation 98 Oxygen O2 Source Room air - Labs Labs: Laboratory Tests 04/16/24 04/16/24 04/16/24 12:26 12:26 13:15 WBC 8.3 RBC 4.81 Hgb 14.3 Hct 43.5 MCV 90.4 MCH 29.7 MCHC 32.9 RDW 13.2 Plt Count 157 MPV 10.5 Neut # (Auto) 6.8 H Lymph # (Auto) 0.8 L [place] # (Auto) 0.6 Eos # (Auto) 0.0 Baso # (Auto) 0.1 Absolute Nucleated RBC 0.00 Nucleated RBC % 0.0 Sodium 136 Potassium 3.9 Chloride 99 L Carbon Dioxide 31 Anion Gap 6.0 BUN 21 H Creatinine 1.2 Estimated GFR (MDRD) 58 L Glucose 123 H Lactic Acid Calcium 10.3 Total Bilirubin 0.9 AST 15 ALT 14 Alkaline Phosphatase 87 Total Protein 7.7 Albumin 4.5 Globulin 3.2 Albumin/Globulin Ratio 1.4 Lipase 23 Urine Color YELLOW Urine Clarity CLEAR Urine pH 7.0 Ur Specific [place] 1.015 Urine Protein NEGATIVE Urine Glucose (UA) NEGATIVE Urine Ketones NEGATIVE Urine Occult Blood NEGATIVE Urine Nitrite NEGATIVE Urine Bilirubin NEGATIVE Urine Urobilinogen 0.2 (NORMAL) Ur Leukocyte Esterase NEGATIVE Ur Microscopic Review NOT INDICATED Urine Culture Comments NOT INDICATED 04/16/24 15:41 WBC RBC Hgb Hct MCV MCH MCHC RDW Plt Count MPV Neut # (Auto) Lymph # (Auto) [place] # (Auto) Eos # (Auto) Baso # (Auto) Absolute Nucleated RBC Nucleated RBC % Sodium Potassium Chloride Carbon Dioxide Anion Gap BUN Creatinine Estimated GFR (MDRD) Glucose Lactic Acid 0.6 Calcium Total Bilirubin AST ALT Alkaline Phosphatase Total Protein Albumin Globulin Albumin/Globulin Ratio Lipase Urine Color Urine Clarity Urine pH Ur Specific [place] Urine Protein Urine Glucose (UA) Urine Ketones Urine Occult Blood Urine Nitrite Urine Bilirubin Urine Urobilinogen Ur Leukocyte Esterase Ur Microscopic Review Urine Culture Comments - Rads (name of study) No standard instances Relevant Findings:: Final report received PD Medical Decision Making - ED course Complexity details: reviewed old records, reviewed results, re-evaluated patient, considered differential, d/w patient, d/w family, d/w change management consultant ED course: 79-year-old male presented with mild central abdominal pain as described in HPI. The patient does have a history of bowel obstruction was concern that he may be developing another bowel obstruction. Here, the patient is well-appearing, nontoxic afebrile in no acute distress. He has a mild discomfort when palpating his abdomen states is not really painful but he can feel the difference between when I am palpating it and when I am not it. He is passing gas, has not had any vomiting thus lower suspicion for obstruction at this time. He has not had any abdominal surgeries in the past. Differentials considered included bowel obstruction, colitis, diverticulitis, gastroenteritis, pancreatitis, cholelithiasis, appendicitis among others. Also considered constipation, urinary tract infection, GERD, PUD. We obtained lab work which is generally reassuring, stable CBC, CMP and lactic acid. CT shows a possible mobile cecum possible cecal volvulus which I discussed with Dr. Knox. Patient has minimal pain normal lactic acid CBC, I think volvulus is less likely but I did review with on-call general surgeon, Dr. Kelley, who reviewed images and advised given reassuring physical exam here and lab work, we think it is less likely a volvulus. We therefore will discharge the patient home with supportive measures, Stick to a clear liquid diet today, advance slowly as tolerated. He was given very strict return precautions if he should develop any increasing abdominal pain, vomiting, stop passing gas, fever, or new concerns that he should return to the ER at which time he would likely need repeat labs/imaging and possible transfer. Pt states understanding and discharged home in stable condition. Departure - Departure Disposition: 01 Home, Self Care Clinical Impression: Abdominal pain Qualifiers: Abdominal location: generalized Qualified Code(s): R10.84 - Generalized abdominal pain Condition: Good Instructions: Abdominal Pain Comments: David, your labs today were very good. Your CT scan showed a possible area of concern, but given your reassuring lab work we think this can be monitored at home for now. If you worsen (increased pain, vomiting, or you stop passing gas, or you otherwise feel worse), please return to the hospital. I would recommend sticking with a clear liquid diet for now. If you pain improves, you can slowly increase your diet. If you worsen at anytime, return to the ER. Forms: PCP List Discharge Date/Time: 04/16/24 16:31
[2024-04-16] MEDS ORDERED: iohexoL-300 100 ML VIAL ONE (13:41)
[2024-04-16] MEDS: iohexoL-300 100 ML VIAL IVP ONE (14:37)
--- NOTE | 2024-04-16 15:20 | CT Report ---
PROCEDURE: Abdomen/Pelvis W INDICATIONS: concern for bowel obstruction CONTRAST: Omni 300 100ml TECHNIQUE: After the administration of intravenous contrast, a CT scan of the abdomen and pelvis was performed. Images were recorded and evaluated at appropriate window settings. Reformats: coronal and sagittal. F or radiation dose reduction, the following was used: automated exposure control, adjustment of mA and /or kV according to patient size. COMPARISON: 11/26/2023. FINDINGS: Image quality: Diagnostic. Lower chest: Unremarkable. Liver: No solid mass. Gallbladder: Biliary tree: No intrahepatic or extrahepatic dilation, accounting for age. Spleen: No splenomegaly. Pancreas: No pancreatic ductal dilation. Adrenals: No adrenal nodule. Kidneys and ureters: No hydronephrosis. No renal cystic lesion which requires follow up. No solid mas s. Stomach, bowel and peritoneum: There is a dilated loop of colon present in the left upper quadrant. T his may potentially represent a mobile cecum with a possible cecal volvulus. Reference axial image 49 of series 2 and coronal image 38 of series 4. This is not definite. The loop of bowel measures 7.9 c m on coronal reformatted image 39 of series 4. Borderline dilated loops of small bowel up to 3.2 cm. Reference coronal image 44 of series 4. Large fecal load. No pathologic free fluid. Lymph nodes: No central or retroperitoneal adenopathy. Vessels: No infrarenal aortic aneurysm. Patent portal vein. PELVIS Reproductive organs: Unremarkable. Bladder: No abnormal wall thickening, accounting for underdistention. Pelvic lymph nodes: No pelvic adenopathy by size criteria. Bones: No aggressive osseous abnormality. Other: No significant ventral or inguinal hernia. IMPRESSION: 1. Question mobile cecum with cecal volvulus. There is a loop of colon in the left upper quadrant whi ch is dilated and may represent the cecum. Above discussed with VLADIMIR James at the time of dictation on 04/16/2024 at 1511 hours. Reviewed by: Jt Tesfaye MD on 04/16/2024 3:18 PM PDT Approved by: Jt Tesfaye MD on 04/16/2024 3:18 PM PDT Station ID: [id number]
[2024-04-16 16:35] VITALS: BP 146/84; O2SAT 98
== END 2024-04-16 16:31 | disposition home or self-care (01) ==
LOC: ED 11:50
DX: R10.84 Generalized abdominal pain (principal); R93.3 Abnormal findings on diagnostic imaging of other parts of digestive tract
CPT/HCPCS: 36415; 74177; 80053; 81003; 83605; 83690; 85025; 99284; Q9967; 81001; 87086